=== PATIENT | female | born 1980 | race Caucasian/White ===

== ENCOUNTER 2016-07-30 18:14 | Emergency (ER) | payer SELFPAY ==
[~2016-07-30] VITALS: Ht 160 cm; Wt 93.4 kg
[~2016-07-30 18:14] MED LIST: ACC200C PO; ACHD5005 PO; ACYC800T PO; AGM875T PO; ALBU8.5H2 IH; AMOX500C2 PO; AMOXICILLIN; CEPH500C PO; CIPR500T78 PO; CIPR7.5D2 OT; CPH250CIP PO; CPR500T PO; EAR DROPS; FERR325C PO; GENT3.5O18 OU; GLYB1.253 PO; GLYB5TAB6 PO; GNT.3OP5 OP; HCTZ12.5T GT; HYDR-3729 PO; HYDR-707 PO; HYDR12.56 PO; HYDR25CA PO; IBP600T1 PO; IBUP-1773 PO; Ibuprofen PO; METR500T PO; Mupirocin NSEACH; NAPR-243 PO; NEOM10DR6 LEFT EAR; NEOM3.5O29 OP; NITR100C PO; ONDAN4ODT PO; PRD20T PO; PRD50T PO; PRE NATAL VIT; PREDNISONE; PREN1TAB14 PO; PREN1TAB71 PO; PRM25T PO; PROG50VI3 IM; SULF1TAB38 PO; TRAM-21 PO; TRAM50TA2 PO; TRM50T PO
[2016-07-30 19:52] VITALS: BP 0/0
== END 2016-07-30 19:52 | disposition left against medical advice (07) ==
LOC: EDUNIT# 18:14 → ER 18:17
DX: S61.412A Laceration without foreign body of left hand, initial encounter (principal); Z53.21 Procedure and treatment not carried out due to patient leaving prior to being seen by health care provider
CPT/HCPCS: 99281

== ENCOUNTER 2016-10-02 12:08 | Emergency (ER) | payer SELFPAY ==
[~2016-10-02] VITALS: Ht 160 cm; Wt 90.7 kg
--- OUTSIDE RECORDS SUMMARY | 2016-10-02 12:19 | XMS REPORT | Continuity of Care Document ---
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
</br>(12/31/2013 16:54:00) <sup> </sup> 12/31/2013 [facility] Temperature Celsius 36.7 Kerry 12/31/2013 [facility] Heart Rate 74 bpm 12/31/2013 [facility] Respiratory Rate 18 BR/min [facility] Heart Rate 92 bpm 12/25/2013 [facility] Respiratory Rate 18 BR/min [facility] Encounters Location Location Details Encounter Type Encounter Number Reason For Visit Attending Provider ADM Date DC Date Status Source [facility] Non Billable [id number] 12/25/2013 12/25/2013 [facility] CLI [id number] Incision Check Rex Prasad 12/25/2013 12/25/2013 Active [facility] CLI [id number] Incision Check Berry Eli 12/31/2013 12/31/2013 [facility] Procedures Plan of Care Social History Assessment and Plan Family History Value Date Source Advance Directives Order Name Results Value Date Source
--- OUTSIDE RECORDS SUMMARY | 2016-10-02 12:23 | XMS REPORT | Continuity of Care Document ---
Author Author [facility] Address Unknown Phone Unavailable Allergies Active Description Code Type Severity Reaction Onset Reported/Identified Relationship to Patient Clinical Status Yes Cromolyn Drug Allergy N/A N/A 02/17/2009 Yes BEES BEES Unknown N/A 09/30/2013 Yes Dihydroxyacetone [id number] Drug Allergy Unknown N/A 09/30/2013 Yes SEAFOOD SEAFOOD Unknown N/A 09/30/2013 Yes Shellfish [id number] Drug Allergy Unknown N/A 09/30/2013 Medications Problems Date Dx Coded Attending Type Code Diagnosis Diagnosed By 02/05/2009 JEVON WHEELER APRN 372.14 OTHER CHRONIC ALLERGIC CONJUNCTIVITIS 02/05/2009 JEVON WHEELER APRN 372.14 OTHER CHRONIC ALLERGIC CONJUNCTIVITIS 02/05/2009 JEVON WHEELER APRN A 372.14 OTHER CHRONIC ALLERGIC CONJUNCTIVITIS 02/05/2009 AVANI CAMACHO DO 372.14 OTHER CHRONIC ALLERGIC CONJUNCTIVITIS 02/05/2009 AVANI CAMACHO DO 372.14 OTHER CHRONIC ALLERGIC CONJUNCTIVITIS 02/05/2009 WADE EDUARDO PHD 372.14 OTHER CHRONIC ALLERGIC CONJUNCTIVITIS 02/05/2009 WADE EDUARDO PHD 372.14 OTHER CHRONIC ALLERGIC CONJUNCTIVITIS 02/05/2009 JEVON WHEELER APRN 372.14 OTHER CHRONIC ALLERGIC CONJUNCTIVITIS 02/05/2009 SILAS AYALA MD 372.14 OTHER CHRONIC ALLERGIC CONJUNCTIVITIS 02/05/2009 SILAS AYALA MD 372.14 OTHER CHRONIC ALLERGIC CONJUNCTIVITIS 02/05/2009 DEJA ANDREA APRN 372.14 OTHER CHRONIC ALLERGIC CONJUNCTIVITIS 02/05/2009 AVANI CAMACHO DO 372.14 OTHER CHRONIC ALLERGIC CONJUNCTIVITIS 02/05/2009 AVANI CAMACHO DO 372.14 OTHER CHRONIC ALLERGIC CONJUNCTIVITIS 02/05/2009 JEVON WHEELER APRN A 372.14 OTHER CHRONIC ALLERGIC CONJUNCTIVITIS 02/05/2009 SUMMER [facility] RECORDS TECH, JEVON A 372.14 OTHER CHRONIC ALLERGIC CONJUNCTIVITIS 02/05/2009 SUMMER MEDICAL RECORDS TECH, JEVON A 372.14 OTHER CHRONIC ALLERGIC CONJUNCTIVITIS 02/05/2009 SUMMER MEDICAL RECORDS TECH, JEVON A 372.14 OTHER CHRONIC ALLERGIC CONJUNCTIVITIS 02/05/2009 CAMACHO DO, AVANI K 372.14 OTHER CHRONIC ALLERGIC CONJUNCTIVITIS 02/05/2009 JAYCE REVELES, WADE Briceno 372.14 OTHER CHRONIC ALLERGIC CONJUNCTIVITIS 02/05/2009 CAMACHO DO, AVANI K 372.14 OTHER CHRONIC ALLERGIC CONJUNCTIVITIS 02/05/2009 ABILIO LUNAS, KASHIF Lawrence 372.14 OTHER CHRONIC ALLERGIC CONJUNCTIVITIS 02/05/2009 LUCY BLANKENSHIP, SILAS N 372.14 OTHER CHRONIC ALLERGIC CONJUNCTIVITIS 02/05/2009 SUMMER [facility]ICAL RECORDS TECH, JEVON A 372.14 OTHER CHRONIC ALLERGIC CONJUNCTIVITIS 02/05/2009 SUMMER MEDICAL RECORDS TECH, JEVON A 372.14 OTHER CHRONIC ALLERGIC CONJUNCTIVITIS 02/05/2009 XAVI GÓMEZ MD 372.14 OTHER CHRONIC ALLERGIC CONJUNCTIVITIS 02/05/2009 CAMACHO DO, AVANI K 372.14 OTHER CHRONIC ALLERGIC CONJUNCTIVITIS 02/05/2009 CAMACHO DO, AVANI K 372.14 OTHER CHRONIC ALLERGIC CONJUNCTIVITIS 02/14/2009 SUMMER [facility] RECORDS TECH, JEVON A 461.9 ACUTE SINUSITIS, UNSPECIFIED 02/14/2009 SUMMER MEDICAL RECORDS TECH, JEVON A 461.9 ACUTE SINUSITIS, UNSPECIFIED 02/14/2009 SUMMER MEDICAL RECORDS TECH, JEVON A 461.9 ACUTE SINUSITIS, UNSPECIFIED 02/14/2009 JANICE DO AVANI K 461.9 ACUTE SINUSITIS, UNSPECIFIED 02/14/2009 CAMACHO DO AVANI K 461.9 ACUTE SINUSITIS, UNSPECIFIED 02/14/2009 JAYCE REVELES, WADE A 461.9 ACUTE SINUSITIS, UNSPECIFIED 02/14/2009 JAYCE REVELES, WADE Briceno 461.9 ACUTE SINUSITIS, UNSPECIFIED 02/14/2009 SUMMER MEDICAL RECORDS TECH, JEVON A 461.9 ACUTE SINUSITIS, UNSPECIFIED 02/14/2009 LUCY BLANKENSHIP, SILAS Lala 461.9 ACUTE SINUSITIS, UNSPECIFIED 02/14/2009 SILAS AYALA MD 461.9 ACUTE SINUSITIS, UNSPECIFIED 02/14/2009 ZULLY MEDICAL RECORDS TECH, DEJA S 461.9 ACUTE SINUSITIS, UNSPECIFIED 02/14/2009 CAMACHO DO, AVANI K 461.9 ACUTE SINUSITIS, UNSPECIFIED 02/14/2009 CAMACHO DO, AVANI K 461.9 ACUTE SINUSITIS, UNSPECIFIED 02/14/2009 SUMMER MEDICAL RECORDS TECH, JEVON A 461.9 ACUTE SINUSITIS, UNSPECIFIED 02/14/2009 SUMMER MEDICAL RECORDS TECH, JEVON A 461.9 ACUTE SINUSITIS, UNSPECIFIED 02/14/2009 SUMMER MEDICAL RECORDS TECH, JEVON A 461.9 ACUTE SINUSITIS, UNSPECIFIED 02/14/2009 SUMMER MEDICAL RECORDS TECH, JEVON A 461.9 ACUTE SINUSITIS, UNSPECIFIED 02/14/2009 CAMACHO DO, AVANI K 461.9 ACUTE SINUSITIS, UNSPECIFIED 02/14/2009 JAYCE REVELES, WADE Briceno 461.9 ACUTE SINUSITIS, UNSPECIFIED 02/14/2009 CAMACHO DO, AVANI K 461.9 ACUTE SINUSITIS, UNSPECIFIED 02/14/2009 ABILIO DDS, KASHIF J 461.9 ACUTE SINUSITIS, UNSPECIFIED 02/14/2009 LUCY BLANKENSHIP, SILAS Lala 461.9 ACUTE SINUSITIS, UNSPECIFIED 02/14/2009 SUMMER MEDICAL RECORDS TECH, JEVON A 461.9 ACUTE SINUSITIS, UNSPECIFIED 02/14/2009 SUMMER MEDICAL RECORDS TECH, JEVON A 461.9 ACUTE SINUSITIS, UNSPECIFIED 02/14/2009 RICO BLANKENSHIP, XAVI Lawrence 461.9 ACUTE SINUSITIS, UNSPECIFIED 02/14/2009 CAMACHO DO, AVANI K 461.9 ACUTE SINUSITIS, UNSPECIFIED 02/14/2009 CAMACHO DO, AVANI K 461.9 ACUTE SINUSITIS, UNSPECIFIED 11/21/2009 SUMMER MEDICAL RECORDS TECH, JEVON A 354.2 LESION OF ULNAR NERVE 11/21/2009 SUMMER MEDICAL RECORDS TECH, JEVON A 354.2 LESION OF ULNAR NERVE 11/21/2009 SUMMER MEDICAL RECORDS TECH, JEVON A 354.2 LESION OF ULNAR NERVE 11/21/2009 CAMACHO DO AVANI K 354.2 LESION OF ULNAR NERVE 11/21/2009 CAMACHO DO, AVANI K 354.2 LESION OF ULNAR NERVE 11/21/2009 JAYCE REVELES, WADE Briceno 354.2 LESION OF ULNAR NERVE 11/21/2009 JAYCE REVELES, WADE Briceno 354.2 LESION OF ULNAR NERVE 11/21/2009 JEVON WHEELER APRN A 354.2 LESION OF ULNAR NERVE 11/21/2009 SILAS AYALA MD 354.2 LESION OF ULNAR NERVE 11/21/2009 SILAS AYALA MD 354.2 LESION OF ULNAR NERVE 11/21/2009 DEJA ANDREA APRN 354.2 LESION OF ULNAR NERVE 11/21/2009 AVANI CAMACHO DO 354.2 LESION OF ULNAR NERVE 11/21/2009 AVANI CAMACHO DO 354.2 LESION OF ULNAR NERVE 11/21/2009 SUMMER NAVA JEVON A 354.2 LESION OF ULNAR NERVE 11/21/2009 TIM WHEELER APRNIDI A 354.2 LESION OF ULNAR NERVE 11/21/2009 TIM WHEELER APRNIDI A 354.2 LESION OF ULNAR NERVE 11/21/2009 TIM WHEELER APRNIDI A 354.2 LESION OF ULNAR NERVE 11/21/2009 AVANI CAMACHO DO 354.2 LESION OF ULNAR NERVE 11/21/2009 JAYCE REVELES, WADE Briceno 354.2 LESION OF ULNAR NERVE 11/21/2009 AVANI CAMACHO DO K 354.2 LESION OF ULNAR NERVE 11/21/2009 KASHIF KNOX DDS 354.2 LESION OF ULNAR NERVE 11/21/2009 SILAS AYALA MD 354.2 LESION OF ULNAR NERVE 11/21/2009 TIM WHEELER APRNIDI A 354.2 LESION OF ULNAR NERVE 11/21/2009 TIM WHEELER APRNIDI A 354.2 LESION OF ULNAR NERVE 11/21/2009 XAVI GÓMEZ MD 354.2 LESION OF ULNAR NERVE 11/21/2009 AVANI CAMACHO DO 354.2 LESION OF ULNAR NERVE 11/21/2009 AVANI CAMACHO DO 354.2 LESION OF ULNAR NERVE 06/04/2010 Ot 305.00 06/04/2010 Ot 802.0 06/04/2010 Ot 873.43 06/04/2010 Ot 959.09 06/04/2010 Ot E000.8 06/04/2010 Ot E029.9 06/04/2010 Ot E849.6 06/04/2010 Ot E917.9 06/10/2010 Ot V58.32 10/21/2010 Ot 847.0 10/21/2010 Ot 920 10/21/2010 Ot 959.01 10/21/2010 Ot E000.8 10/21/2010 Ot E849.0 10/21/2010 Ot E968.8 11/24/2010 Ot 599.0 11/24/2010 Ot 789.00 06/11/2011 SUMMER [facility] RECORDS TECH, JEVON A 008.8 GASTROENTERITIS, VIRAL 06/11/2011 SUMMER MEDICAL RECORDS TECH, JEVON A 008.8 GASTROENTERITIS, VIRAL 06/11/2011 SUMMER MEDICAL RECORDS TECH, JEVON A 008.8 GASTROENTERITIS, VIRAL 06/11/2011 CAMACHO DO, AVANI K 008.8 GASTROENTERITIS, VIRAL 06/11/2011 CAMACHO DO, AVANI K 008.8 GASTROENTERITIS, VIRAL 06/11/2011 JAYCE PHD, WADE A 008.8 GASTROENTERITIS, VIRAL 06/11/2011 JAYCE REVELES, WADE A 008.8 GASTROENTERITIS, VIRAL 06/11/2011 SUMMER [facility]ICAL RECORDS TECH, JEVON A 008.8 GASTROENTERITIS, VIRAL 06/11/2011 LUCY BLANKENSHIP, SILAS Lala 008.8 GASTROENTERITIS, VIRAL 06/11/2011 LUCY BLANKENSHIP, SILAS Lala 008.8 GASTROENTERITIS, VIRAL 06/11/2011 DEJA ANDREA APRN 008.8 GASTROENTERITIS, VIRAL 06/11/2011 CAMACHO DOELAINEA K 008.8 GASTROENTERITIS, VIRAL 06/11/2011 CAMACHO DO AVANI K 008.8 GASTROENTERITIS, VIRAL 06/11/2011 SUMMER MEDICAL RECORDS TECH, JEVON A 008.8 GASTROENTERITIS, VIRAL 06/11/2011 SUMMER MEDICAL RECORDS TECH, JEVON A 008.8 GASTROENTERITIS, VIRAL 06/11/2011 SUMMER MEDICAL RECORDS TECH, JEVON A 008.8 GASTROENTERITIS, VIRAL 06/11/2011 SUMMER MEDICAL RECORDS TECH, JEVON A 008.8 GASTROENTERITIS, VIRAL 06/11/2011 CAMACHO DO AVANI K 008.8 GASTROENTERITIS, VIRAL 06/11/2011 JAYCE REVELES, WADE A 008.8 GASTROENTERITIS, VIRAL 06/11/2011 CAMACHO DO AVANI K 008.8 GASTROENTERITIS, VIRAL 06/11/2011 ABILIO LUNAS, KASHIF Lawrence 008.8 GASTROENTERITIS, VIRAL 06/11/2011 LUCY BLANKENSHIP, SILAS Lala 008.8 GASTROENTERITIS, VIRAL 06/11/2011 JEVON WHEELER APRN A 008.8 GASTROENTERITIS, VIRAL 06/11/2011 JEVON WHEELER APRN 008.8 GASTROENTERITIS, VIRAL 06/11/2011 XAVI GÓMEZ MD 008.8 GASTROENTERITIS, VIRAL 06/11/2011 CAMACHO AVANI HEALY 008.8 GASTROENTERITIS, VIRAL 06/11/2011 JANICE HEALYAVANI 008.8 GASTROENTERITIS, VIRAL 07/21/2011 Ot 372.30 CONJUNCTIVITIS NOS 07/21/2011 Ot 379.93 REDNESS/DISCHARGE OF EYE 09/02/2011 Ot 388.70 OTALGIA NOS 09/28/2011 Ot 388.70 OTALGIA NOS 12/24/2011 Ot 787.03 VOMITING ALONE 04/27/2012 Ot 305.1 TOBACCO USE DISORDER 04/27/2012 Ot 466.0 ACUTE BRONCHITIS 04/27/2012 Ot 786.2 COUGH 09/21/2012 QI BLANKENSHIP, TANISHA Coates Ot 787.02 NAUSEA ALONE 09/21/2012 QI BLANKENSHIP, TANISHA Coates Ot 789.09 ABDOMINAL PAIN, OTHER SPECIFIED SITE 12/09/2012 JOSÉ MANUEL COCHRAN APRN Ot 380.10 INFEC OTITIS EXTERNA NOS 12/09/2012 JOSÉ MANUEL COCHRAN APRN Ot 388.70 OTALGIA NOS 12/23/2012 JOSÉ MANUEL COCHRAN APRN Ot 599.0 URIN TRACT INFECTION NOS 12/23/2012 JOSÉ MANUEL COCHRAN APRN Ot 787.01 NAUSEA WITH VOMITING 01/13/2013 JEVON WHEELER APRN A V72.42 TEST POSITIVE RESULT 01/13/2013 JEVON WHEELER APRN V72.42 TEST POSITIVE RESULT 01/13/2013 JEVON WHEELER APRN A V72.42 TEST POSITIVE RESULT 01/13/2013 AVANI CAMACHO DO V72.42 TEST POSITIVE RESULT 01/13/2013 AVANI CAMACHO DO V72.42 TEST POSITIVE RESULT 01/13/2013 WADE EDUARDO PHD V72.42 TEST POSITIVE RESULT 01/13/2013 WADE EDUARDO PHD V72.42 TEST POSITIVE RESULT 01/13/2013 JEVON WHEELER APRN A V72.42 TEST POSITIVE RESULT 01/13/2013 SILAS AYALA MD V72.42 TEST POSITIVE RESULT 01/13/2013 SILAS AYALA MD V72.42 TEST POSITIVE RESULT 01/13/2013 DEJA ANDREA APRN V72.42 TEST POSITIVE RESULT 01/13/2013 CAMACHO DO, AVANI K V72.42 TEST POSITIVE RESULT 01/13/2013 CAMACHO DO, AVANI K V72.42 TEST POSITIVE RESULT 01/13/2013 SUMMER [facility] RECORDS TECH, JEVON A V72.42 TEST POSITIVE RESULT 01/13/2013 SUMMER MEDICAL RECORDS TECH, JEVON A V72.42 TEST POSITIVE RESULT 01/13/2013 SUMMER MEDICAL RECORDS TECH, JEVON A V72.42 TEST POSITIVE RESULT 01/13/2013 SUMMER MEDICAL RECORDS TECH, JEVON A V72.42 TEST POSITIVE RESULT 01/13/2013 CAMACHO DO, AVANI K V72.42 TEST POSITIVE RESULT 01/13/2013 WADE EDUARDO PHD V72.42 TEST POSITIVE RESULT 01/13/2013 CAMACHO DO, AVANI K V72.42 TEST POSITIVE RESULT 01/13/2013 ABILIO LUNAS, KASHIF Lawrence V72.42 TEST POSITIVE RESULT 01/13/2013 SILAS AYALA MD V72.42 TEST POSITIVE RESULT 01/13/2013 SUMMER MEDICAL RECORDS TECH, JEVON A V72.42 TEST POSITIVE RESULT 01/13/2013 SUMMER MEDICAL RECORDS TECH, JEVON A V72.42 TEST POSITIVE RESULT 01/13/2013 XAVI GÓMEZ MD V72.42 TEST POSITIVE RESULT 01/13/2013 CAMACHO DO, AVANI K V72.42 TEST POSITIVE RESULT 01/13/2013 CAMACHO DO, AVANI K V72.42 TEST POSITIVE RESULT 01/26/2013 CAMACHO DO, AVANI K 632 , MISSED 01/26/2013 CAMACHO DO, AVANI K 632 , MISSED 01/26/2013 WADE EDUARDO PHD 632 , MISSED 01/26/2013 WADE EDUARDO PHD 632 , MISSED 01/26/2013 SUMMER NAVA, JEVON A 632 , MISSED 01/26/2013 LUCY BLANKENSHIP, SILAS Lala 632 , MISSED 01/26/2013 SILAS AYALA MD 632 , MISSED 01/26/2013 ZULLY NAVAHENRYDEJA S 632 , MISSED 01/26/2013 CAMACHO DO, AVANI K 632 , MISSED 01/26/2013 CAMACHO DO, AVANI K 632 , MISSED 01/26/2013 SUMMER MEDICAL RECORDS TECH, JEVON A 632 , MISSED 01/26/2013 SUMMER MEDICAL RECORDS TECH, JEVON A 632 , MISSED 01/26/2013 SUMMER MEDICAL RECORDS TECH, JEVON A 632 , MISSED 01/26/2013 SUMMER MEDICAL RECORDS TECH, JEVON A 632 , MISSED 01/26/2013 CAMACHO DO, AVANI K 632 , MISSED 01/26/2013 JAYCE REVELES, WADE Briceno 632 , MISSED 01/26/2013 CAMACHO DO, AVANI K 632 , MISSED 01/26/2013 ABILIO LUNAS, KASHIF J 632 , MISSED 01/26/2013 SILAS AYALA MD 632 , MISSED 01/26/2013 SUMMER MEDICAL RECORDS TECH, JEVON A 632 , MISSED 01/26/2013 SUMMER MEDICAL RECORDS TECH, JEVON A 632 , MISSED 01/26/2013 RICO BLANKENSHIP, XAVI Lawrence 632 , MISSED 01/26/2013 CAMACHO DO, AVANI K 632 , MISSED 01/26/2013 CAMACHO DO, AVANI K 632 , MISSED 01/31/2013 SUKUMAR SHEPARD MD Ot 599.0 URIN TRACT INFECTION NOS 01/31/2013 SUKUMAR SHEPARD MD Ot 640.03 THREATEN ABORT-ANTEPART 01/31/2013 SUKUMAR SHEPARD MD Ot 646.63 INFECTION-ANTEPARTUM 01/31/2013 SUKUMAR SHEPARD MD Ot 649.53 SPOTTING COMP , ANTEPARTUM COND 02/02/2013 WADE EDUARDO PHD 634.91 INCOMPLETE (SAB) 02/02/2013 WADE EDUARDO PHD 634.91 INCOMPLETE (SAB) 02/02/2013 SUMMER NAVA, JEVON A 634.91 INCOMPLETE (SAB) 02/02/2013 SILAS AYALA MD 634.91 INCOMPLETE (SAB) 02/02/2013 LUCY MD, SILAS N 634.91 INCOMPLETE (SAB) 02/02/2013 ZULLYVREONICA LONGORIANDEJA Magdi 634.91 INCOMPLETE (SAB) 02/02/2013 AVANI CAMACHO DO K 634.91 INCOMPLETE (SAB) 02/02/2013 ELAINE CAMACHO DOA K 634.91 INCOMPLETE (SAB) 02/02/2013 SUMMER APRN, JEVON A 634.91 INCOMPLETE (SAB) 02/02/2013 SUMMERCRISTI NAVA, JEVON A 634.91 INCOMPLETE (SAB) 02/02/2013 SUMMER APRN, JEVON A 634.91 INCOMPLETE (SAB) 02/02/2013 SUMMERCRISTI NAVA, JEVON A 634.91 INCOMPLETE (SAB) 02/02/2013 AVANI CAMACHO DO K 634.91 INCOMPLETE (SAB) 02/02/2013 WADE EDUARDO PHD 634.91 INCOMPLETE (SAB) 02/02/2013 AVANI CAMACHO DO K 634.91 INCOMPLETE (SAB) 02/02/2013 ABILIO LUNAS, KASHIF J 634.91 INCOMPLETE (SAB) 02/02/2013 SILAS AYALA MD 634.91 INCOMPLETE (SAB) 02/02/2013 TIM WHEELER APRNIDI A 634.91 INCOMPLETE (SAB) 02/02/2013 TIM WHEELER APRNIDI A 634.91 INCOMPLETE (SAB) 02/02/2013 XAVI GÓMEZ MD 634.91 INCOMPLETE (SAB) 02/02/2013 AVANI CAMACHO DO K 634.91 INCOMPLETE (SAB) 02/02/2013 AVANI CAMACHO DO K 634.91 INCOMPLETE (SAB) 02/03/2013 WADE EDUARDO PHD A 296.32 MO DEPRESSIVE RECURRENT MODERATE 02/03/2013 WADE EDUARDO PHD A 309.81 AN PTSD 02/03/2013 WADE EDUARDO PHD A 296.32 MO DEPRESSIVE RECURRENT MODERATE 02/03/2013 JAYCE REVELES, WADE A 309.81 AN PTSD 02/03/2013 JEVON WHEELER APRN A 296.32 MO DEPRESSIVE RECURRENT MODERATE 02/03/2013 TIM WHEELER APRNIDI A 309.81 AN PTSD 02/03/2013 LUCY MD, SILAS N 296.32 MO DEPRESSIVE RECURRENT MODERATE 02/03/2013 SILAS AYALA MD N 309.81 AN PTSD 02/03/2013 SILAS AYALA MD N 296.32 MO DEPRESSIVE RECURRENT MODERATE 02/03/2013 SILAS AYALA MD N 309.81 AN PTSD 02/03/2013 ZULLY MEDICAL RECORDS TECH, DEJA S 296.32 MO DEPRESSIVE RECURRENT MODERATE 02/03/2013 ZULLY MEDICAL RECORDS TECH, DEJA S 309.81 AN PTSD 02/03/2013 CAMACHO DO AVANI K 296.32 MO DEPRESSIVE RECURRENT MODERATE 02/03/2013 CAMACHO DO AVANI K 309.81 AN PTSD 02/03/2013 CAMACHO DO AVANI K 296.32 MO DEPRESSIVE RECURRENT MODERATE 02/03/2013 CAMACHO DO AVANI K 309.81 AN PTSD 02/03/2013 SUMMER MEDICAL RECORDS TECH, JEVON A 296.32 MO DEPRESSIVE RECURRENT MODERATE 02/03/2013 SUMMER MEDICAL RECORDS TECH, JEVON A 309.81 AN PTSD 02/03/2013 SUMMER MEDICAL RECORDS TECH, JEVON A 296.32 MO DEPRESSIVE RECURRENT MODERATE 02/03/2013 SUMMER MEDICAL RECORDS TECH, JEVON A 309.81 AN PTSD 02/03/2013 SUMMER MEDICAL RECORDS TECH, JEVON A 296.32 MO DEPRESSIVE RECURRENT MODERATE 02/03/2013 SUMMER MEDICAL RECORDS TECH, JEVON A 309.81 AN PTSD 02/03/2013 SUMMER MEDICAL RECORDS TECH, JEVON A 296.32 MO DEPRESSIVE RECURRENT MODERATE 02/03/2013 SUMMER MEDICAL RECORDS TECH, JEVON A 309.81 AN PTSD 02/03/2013 JANICE HEALY AVANI K 296.32 MO DEPRESSIVE RECURRENT MODERATE 02/03/2013 JANICE DO AVANI K 309.81 AN PTSD 02/03/2013 JAYCE REVELES, WADE A 296.32 MO DEPRESSIVE RECURRENT MODERATE 02/03/2013 JAYCE REVELES, WADE A 309.81 AN PTSD 02/03/2013 JANICE HEALY AVANI K 296.32 MO DEPRESSIVE RECURRENT MODERATE 02/03/2013 CAMACHO DO AVANI K 309.81 AN PTSD 02/03/2013 WHITE DDS, KASHIF J 296.32 MO DEPRESSIVE RECURRENT MODERATE 02/03/2013 WHITE DDS, KASHIF J 309.81 AN PTSD 02/03/2013 SILAS AYALA MD N 296.32 MO DEPRESSIVE RECURRENT MODERATE 02/03/2013 SILAS AYALA MD N 309.81 AN PTSD 02/03/2013 SUMMER MEDICAL RECORDS TECH, JEVON A 296.32 MO DEPRESSIVE RECURRENT MODERATE 02/03/2013 SUMMER MEDICAL RECORDS TECH, JEVON A 309.81 AN PTSD 02/03/2013 SUMMER MEDICAL RECORDS TECH, JEVON A 296.32 MO DEPRESSIVE RECURRENT MODERATE 02/03/2013 SUMMER MEDICAL RECORDS TECH, JEVON A 309.81 AN PTSD 02/03/2013 XAVI GÓMEZ MD 296.32 MO DEPRESSIVE RECURRENT MODERATE 02/03/2013 XAVI GÓMEZ MD 309.81 AN PTSD 02/03/2013 CAMACHO DO, AVANI K 296.32 MO DEPRESSIVE RECURRENT MODERATE 02/03/2013 CAMACHO DO, AVANI K 309.81 AN PTSD 02/03/2013 CAMACHO DO, AVANI K 296.32 MO DEPRESSIVE RECURRENT MODERATE 02/03/2013 CAMACHO DO, AVANI K 309.81 AN PTSD 02/25/2013 SILAS AYALA MD N 698.9 UNSPECIFIED PRURITIC DISORDER 02/25/2013 SILAS AYALA MD 698.9 UNSPECIFIED PRURITIC DISORDER 02/25/2013 ZULLY NAVA DEJA S 698.9 UNSPECIFIED PRURITIC DISORDER 02/25/2013 CAMACHO DO, AVANI K 698.9 UNSPECIFIED PRURITIC DISORDER 02/25/2013 CAMACHO DO, AVANI K 698.9 UNSPECIFIED PRURITIC DISORDER 02/25/2013 SUMMER MEDICAL RECORDS TECH, JEVON A 698.9 UNSPECIFIED PRURITIC DISORDER 02/25/2013 SUMMER MEDICAL RECORDS TECH, JEVON A 698.9 UNSPECIFIED PRURITIC DISORDER 02/25/2013 SUMMER MEDICAL RECORDS TECH, JEVON A 698.9 UNSPECIFIED PRURITIC DISORDER 02/25/2013 SUMMER MEDICAL RECORDS TECH, JEVON A 698.9 UNSPECIFIED PRURITIC DISORDER 02/25/2013 CAMACHO DO, AVANI K 698.9 UNSPECIFIED PRURITIC DISORDER 02/25/2013 JAYCE REVELES, WADE A 698.9 UNSPECIFIED PRURITIC DISORDER 02/25/2013 CAMACHO DO, AVANI K 698.9 UNSPECIFIED PRURITIC DISORDER 02/25/2013 ABILIO LUNAS, KASHIF J 698.9 UNSPECIFIED PRURITIC DISORDER 02/25/2013 SILAS AYALA MD N 698.9 UNSPECIFIED PRURITIC DISORDER 02/25/2013 SUMMER MEDICAL RECORDS TECH, JEVON A 698.9 UNSPECIFIED PRURITIC DISORDER 02/25/2013 SUMMER MEDICAL RECORDS TECH, JEVON A 698.9 UNSPECIFIED PRURITIC DISORDER 02/25/2013 RICO BLANKENSHIP, XAVI Lawrence 698.9 UNSPECIFIED PRURITIC DISORDER 02/25/2013 CAMACHO DO, AVANI K 698.9 UNSPECIFIED PRURITIC DISORDER 02/25/2013 CAMACHO DO, AVANI K 698.9 UNSPECIFIED PRURITIC DISORDER 05/06/2013 ZULLY NAVA, DEJA S 354.0 CARPAL TUNNEL SYNDROME 05/06/2013 CAMACHO DO, AVANI K 354.0 CARPAL TUNNEL SYNDROME 05/06/2013 CAMACHO DO, AVANI K 354.0 CARPAL TUNNEL SYNDROME 05/06/2013 SUMMER NAVA, JEVON A 354.0 CARPAL TUNNEL SYNDROME 05/06/2013 SUMMER NAVA, JEVON A 354.0 CARPAL TUNNEL SYNDROME 05/06/2013 SUMMER NAVA, JEVON A 354.0 CARPAL TUNNEL SYNDROME 05/06/2013 SUMMER NAVA, JEVON A 354.0 CARPAL TUNNEL SYNDROME 05/06/2013 CAMACHO DO, AVANI K 354.0 CARPAL TUNNEL SYNDROME 05/06/2013 JAYCE PHD, WADE Briceno 354.0 CARPAL TUNNEL SYNDROME 05/06/2013 CAMACHO DO, AVANI K 354.0 CARPAL TUNNEL SYNDROME 05/06/2013 ABILIO DDS, KASHIF Lawrence 354.0 CARPAL TUNNEL SYNDROME 05/06/2013 LUCY BLANKENSHIP, SILAS Lala 354.0 CARPAL TUNNEL SYNDROME 05/06/2013 SUMMER NAVA, JEVON A 354.0 CARPAL TUNNEL SYNDROME 05/06/2013 SUMMERCRISTI NAVA, JEVON A 354.0 CARPAL TUNNEL SYNDROME 05/06/2013 XAVI GÓMEZ MD 354.0 CARPAL TUNNEL SYNDROME 05/06/2013 CAMACHO DO AVANI K 354.0 CARPAL TUNNEL SYNDROME 05/06/2013 CAMACHO DO, AVANI K 354.0 CARPAL TUNNEL SYNDROME 05/07/2013 QI BLANKENSHIP, TANISHA Coates Ot 682.4 CELLULITIS OF HAND 05/07/2013 QI BLANKENSHIP, TANISHA Coates Ot 729.5 PAIN IN LIMB 06/01/2013 CAMACHO DO, AVANI K 493.10 INTRINSIC ASTHMA UNSPECIFIED 06/01/2013 CAMACHO DO, AVANI K 782.3 EDEMA 06/01/2013 CAMACHO DO, AVANI K V22.2 STATE INCIDENTAL 06/01/2013 CAMACHO DO, AVAIN K 493.10 INTRINSIC ASTHMA UNSPECIFIED 06/01/2013 CAMACHO DO, AVANI K 782.3 EDEMA 06/01/2013 CAMACHO DO, AVANI K V22.2 STATE INCIDENTAL 06/01/2013 [facility] [employer] REC[employer]DS TECH, JEVON A 493.10 INTRINSIC ASTHMA UNSPECIFIED 06/01/2013 SUMMER MEDICAL RECORDS TECH, JEVON A 782.3 EDEMA 06/01/2013 SUMMER [employer]ICAL RECORDS TECH, JEVON A V22.2 STATE INCIDENTAL 06/01/2013 SUMMER [employer] RECORDS TECH, JEVON A 493.10 INTRINSIC ASTHMA UNSPECIFIED 06/01/2013 SUMMER [employer]ICAL RECORDS TECH, JEVON A 782.3 EDEMA 06/01/2013 SUMMER MEDICAL RECORDS TECH, JEVON A V22.2 STATE INCIDENTAL 06/01/2013 SUMMER [employer]ICAL RECORDS TECH, JEVON A 493.10 INTRINSIC ASTHMA UNSPECIFIED 06/01/2013 SUMMER [employer]ICAL RECORDS TECH, JEVON A 782.3 EDEMA 06/01/2013 SUMMER [employer] RECORDS TECH, JEVON A V22.2 STATE INCIDENTAL 06/01/2013 SUMMER [employer] RECORDS TECH, JEVON A 493.10 INTRINSIC ASTHMA UNSPECIFIED 06/01/2013 SUMMER [employer] RECORDS TECH, JEVON A 782.3 EDEMA 06/01/2013 SUMMER [employer] RECORDS TECH, JEVON A V22.2 STATE INCIDENTAL 06/01/2013 CAMACHO DO, AVANI K 493.10 INTRINSIC ASTHMA UNSPECIFIED 06/01/2013 CAMACHO DO, AVANI K 782.3 EDEMA 06/01/2013 CAMACHO DO, AVANI K V22.2 STATE INCIDENTAL 06/01/2013 JAYCE REVELES, WADE Briceno 493.10 INTRINSIC ASTHMA UNSPECIFIED 06/01/2013 JAYCE PHD, WADE A 782.3 EDEMA 06/01/2013 JAYCE PHD, WADE A V22.2 STATE INCIDENTAL 06/01/2013 CAMACHO DO, AVANI K 493.10 INTRINSIC ASTHMA UNSPECIFIED 06/01/2013 CAMACHO DO, AVANI K 782.3 EDEMA 06/01/2013 CAMACHO DO, AVANI K V22.2 STATE INCIDENTAL 06/01/2013 WHITE DDS, KASHIF J 493.10 INTRINSIC ASTHMA UNSPECIFIED 06/01/2013 WHITE DDS, KASHIF J 782.3 EDEMA 06/01/2013 WHITE DDS, KASHIF J V22.2 STATE INCIDENTAL 06/01/2013 SILAS AYALA MD 493.10 INTRINSIC ASTHMA UNSPECIFIED 06/01/2013 SILAS AYALA MD N 782.3 EDEMA 06/01/2013 SILAS AYALA MD N V22.2 STATE INCIDENTAL 06/01/2013 JEVON WHEELER APRN A 493.10 INTRINSIC ASTHMA UNSPECIFIED 06/01/2013 SUMMER NAVA JEVON A 782.3 EDEMA 06/01/2013 TIM WHEELER APRNIDI A V22.2 STATE INCIDENTAL 06/01/2013 JEVON WHEELER APRN A 493.10 INTRINSIC ASTHMA UNSPECIFIED 06/01/2013 TIM WHEELER APRNIDI A 782.3 EDEMA 06/01/2013 TIM WHEELER APRNIDI A V22.2 STATE INCIDENTAL 06/01/2013 XAVI GÓMEZ MD 493.10 INTRINSIC ASTHMA UNSPECIFIED 06/01/2013 XAVI GÓMEZ MD 782.3 EDEMA 06/01/2013 XAVI GÓMEZ MD V22.2 STATE INCIDENTAL 06/01/2013 CAMACHO DO, AVANI K 493.10 INTRINSIC ASTHMA UNSPECIFIED 06/01/2013 CAMACHO DO, AVANI K 782.3 EDEMA 06/01/2013 CAMACHO DO, AVANI K V22.2 STATE INCIDENTAL 06/01/2013 JANICE HEALY, AVANI K 493.10 INTRINSIC ASTHMA UNSPECIFIED 06/01/2013 CAMACHO DO, AVANI K 782.3 EDEMA 06/01/2013 CAMACHO DO, AVANI K V22.2 STATE INCIDENTAL 06/21/2013 SUKUMAR SHEPARD MD Ot 616.10 VAGINITIS NOS 06/21/2013 SUKUMAR SHEPARD MD Ot 643.93 VOMIT OF PG NOS-ANTEPART 06/21/2013 SUKUMAR SHEPARD MD Ot 646.63 INFECTION-ANTEPARTUM 06/21/2013 SUKUMAR SHEPARD MD Ot 789.00 ABDOMINAL PAIN, UNSPECIFIED SITE 06/29/2013 JEVON WHEELER APRN 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 OR THE PUERPERIUM UNSPECIFIED TO EPISODE OF CARE 06/29/2013 JEVON WHEELER APRN 649.00 COMPL OF - TOBACCO USE 06/29/2013 JEVON WHEELER APRN A 654.20 PREVIOUS 06/29/2013 JEVON WHEELER APRN A 787.02 NAUSEA ALONE 06/29/2013 JEVON WHEELER APRN V12.21 PERSONAL HISTORY OF GESTATIONAL DIABETES 06/29/2013 JEVON WHEELER APRN V23.9 , HIGH-RISK (UNSPEC) 06/29/2013 JEVON WHEELER APRN 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 OR THE PUERPERIUM UNSPECIFIED TO EPISODE OF CARE 06/29/2013 JEVON WHEELER APRN 649.00 COMPL OF - TOBACCO USE 06/29/2013 JEVON WHEELER APRN 654.20 PREVIOUS 06/29/2013 JEVON WHEELER APRN A 787.02 NAUSEA ALONE 06/29/2013 JEVON WHEELER APRN V12.21 PERSONAL HISTORY OF GESTATIONAL DIABETES 06/29/2013 JEVON WHEELER APRN V23.9 , HIGH-RISK (UNSPEC) 06/29/2013 JEVON WHEELER APRN 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 OR THE PUERPERIUM UNSPECIFIED TO EPISODE OF CARE 06/29/2013 JEVON WHEELER APRN 649.00 COMPL OF - TOBACCO USE 06/29/2013 JEVON WHEELER APRN 654.20 PREVIOUS 06/29/2013 JEVON WHEELER APRN A 787.02 NAUSEA ALONE 06/29/2013 JEVON WHEELER APRN A V12.21 PERSONAL HISTORY OF GESTATIONAL DIABETES 06/29/2013 JEVON WHEELER APRN V23.9 , HIGH-RISK (UNSPEC) 06/29/2013 JEVON WHEELER APRN A 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 OR THE PUERPERIUM UNSPECIFIED TO EPISODE OF CARE 06/29/2013 SUMMER NAVA JEVON A 649.00 COMPL OF - TOBACCO USE 06/29/2013 SUMMER NAVA JEVON A 654.20 PREVIOUS 06/29/2013 TIM WHEELER APRNIDI A 787.02 NAUSEA ALONE 06/29/2013 TIM WHEELER APRNIDI A V12.21 PERSONAL HISTORY OF GESTATIONAL DIABETES 06/29/2013 TIM WHEELER APRNIDI A V23.9 , HIGH-RISK (UNSPEC) 06/29/2013 AVANI CAMACHO DO 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 OR THE PUERPERIUM UNSPECIFIED TO EPISODE OF CARE 06/29/2013 AVANI CAMACHO DO 649.00 COMPL OF - TOBACCO USE 06/29/2013 AVANI CAMACHO DO 654.20 PREVIOUS 06/29/2013 AVANI CAMACHO DO 787.02 NAUSEA ALONE 06/29/2013 AVANI CAMACHO DO V12.21 PERSONAL HISTORY OF GESTATIONAL DIABETES 06/29/2013 AVANI CAMACHO DO V23.9 , HIGH-RISK (UNSPEC) 06/29/2013 WADE EDUARDO PHD 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 OR THE PUERPERIUM UNSPECIFIED TO EPISODE OF CARE 06/29/2013 WADE EDUARDO PHD 649.00 COMPL OF - TOBACCO USE 06/29/2013 WADE EDUARDO PHD 654.20 PREVIOUS 06/29/2013 WADE EDUARDO PHD 787.02 NAUSEA ALONE 06/29/2013 WADE EDUARDO PHD V12.21 PERSONAL HISTORY OF GESTATIONAL DIABETES 06/29/2013 WADE EDUARDO PHD V23.9 , HIGH-RISK (UNSPEC) 06/29/2013 AVANI CAMACHO DO 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 OR THE PUERPERIUM UNSPECIFIED TO EPISODE OF CARE 06/29/2013 AVANI CAMACHO DO 649.00 COMPL OF - TOBACCO USE 06/29/2013 AVANI CAMACHO DO 654.20 PREVIOUS 06/29/2013 AVANI CAMACHO DO 787.02 NAUSEA ALONE 06/29/2013 AVANI CAMACHO DO V12.21 PERSONAL HISTORY OF GESTATIONAL DIABETES 06/29/2013 AVANI CAMACHO DO K V23.9 , HIGH-RISK (UNSPEC) 06/29/2013 KASHIF KNOX DDS 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 OR THE PUERPERIUM UNSPECIFIED TO EPISODE OF CARE 06/29/2013 KASHIF KNOX DDS J 649.00 COMPL OF - TOBACCO USE 06/29/2013 KASHIF KNOX DDS J 654.20 PREVIOUS 06/29/2013 KASHIF KNOX DDS 787.02 NAUSEA ALONE 06/29/2013 KASHIF KNOX DDS V12.21 PERSONAL HISTORY OF GESTATIONAL DIABETES 06/29/2013 KASHIF KNOX DDS V23.9 , HIGH-RISK (UNSPEC) 06/29/2013 SILAS AYALA MD 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 OR THE PUERPERIUM UNSPECIFIED TO EPISODE OF CARE 06/29/2013 SILAS AYALA MD 649.00 COMPL OF - TOBACCO USE 06/29/2013 SILAS AYALA MD 654.20 PREVIOUS 06/29/2013 SILAS AYALA MD 787.02 NAUSEA ALONE 06/29/2013 SILAS AYALA MD N V12.21 PERSONAL HISTORY OF GESTATIONAL DIABETES 06/29/2013 SILAS AYALA MD V23.9 , HIGH-RISK (UNSPEC) 06/29/2013 JEVON WHEELER APRN 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 OR THE PUERPERIUM UNSPECIFIED TO EPISODE OF CARE 06/29/2013 JEVON WHEELER APRN 649.00 COMPL OF - TOBACCO USE 06/29/2013 JEVON WHEELER APRN 654.20 PREVIOUS 06/29/2013 JEVON WHEELER APRN 787.02 NAUSEA ALONE 06/29/2013 JEVON WHEELER APRN V12.21 PERSONAL HISTORY OF GESTATIONAL DIABETES 06/29/2013 JEVON WHEELER APRN V23.9 , HIGH-RISK (UNSPEC) 06/29/2013 SUMMER MEDICAL RECORDS TECH, JEVON A 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 OR THE PUERPERIUM UNSPECIFIED TO EPISODE OF CARE 06/29/2013 SUMMER MEDICAL RECORDS TECHJEVON Lala 649.00 COMPL OF - TOBACCO USE 06/29/2013 SUMMER MEDICAL RECORDS TECHJEVON Lala 654.20 PREVIOUS 06/29/2013 SUMMER MEDICAL RECORDS TECHJEVON Lala 787.02 NAUSEA ALONE 06/29/2013 SUMMER MEDICAL RECORDS TECHJEVON Lala V12.21 PERSONAL HISTORY OF GESTATIONAL DIABETES 06/29/2013 SUMMER MEDICAL RECORDS TECHJEVON Lala V23.9 , HIGH-RISK (UNSPEC) 06/29/2013 XAVI GÓMEZ MD 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 OR THE PUERPERIUM UNSPECIFIED TO EPISODE OF CARE 06/29/2013 XAVI GÓMEZ MD 649.00 COMPL OF - TOBACCO USE 06/29/2013 XAVI GÓMEZ MD 654.20 PREVIOUS 06/29/2013 XAVI GÓMEZ MD 787.02 NAUSEA ALONE 06/29/2013 XAVI GÓMEZ MD V12.21 PERSONAL HISTORY OF GESTATIONAL DIABETES 06/29/2013 XAVI GÓMEZ MD V23.9 , HIGH-RISK (UNSPEC) 06/29/2013 AVANI CAMACHO DO 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 OR THE PUERPERIUM UNSPECIFIED TO EPISODE OF CARE 06/29/2013 AVANI CAMACHO DO 649.00 COMPL OF - TOBACCO USE 06/29/2013 AVANI CAMACHO DO 654.20 PREVIOUS 06/29/2013 AVANI CAMACHO DO 787.02 NAUSEA ALONE 06/29/2013 AVANI CAMACHO DO V12.21 PERSONAL HISTORY OF GESTATIONAL DIABETES 06/29/2013 AVANI CAMACHO DO V23.9 , HIGH-RISK (UNSPEC) 06/29/2013 AVANI CAMACHO DO 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 OR THE PUERPERIUM UNSPECIFIED TO EPISODE OF CARE 06/29/2013 AVANI CAMACHO DO 649.00 COMPL OF - TOBACCO USE 06/29/2013 AVANI CAMACHO DO 654.20 PREVIOUS 06/29/2013 AVANI CAMACHO DO 787.02 NAUSEA ALONE 06/29/2013 AVANI CAMACHO DO V12.21 PERSONAL HISTORY OF GESTATIONAL DIABETES 06/29/2013 AVANI CAMACHO DO V23.9 , HIGH-RISK (UNSPEC) 07/03/2013 PARISH BLANKENSHIP, AGA Briceno Ot 558.9 NONINF GASTROENTERIT NEC 07/03/2013 PARISH BLANKENSHIP, AGA A Ot 648.93 OTH CURR COND-ANTEPARTUM 07/03/2013 PARISH BLANKENSHIP, AGA A Ot 787.01 NAUSEA WITH VOMITING 07/19/2013 DEVYN BLANKENSHIP, SUKUMAR Dyer Ot 648.93 OTH CURR COND-ANTEPARTUM 07/19/2013 DEVYN BLANKENSHIP, SUKUMAR Dyer Ot 789.00 ABDOMINAL PAIN, UNSPECIFIED SITE 07/20/2013 JEVON WHEELER APRN A 616.10 VAGINITIS AND VULVOVAGINITIS UNSPECIFIED 07/20/2013 JEVON WHEELER APRN A 616.10 VAGINITIS AND VULVOVAGINITIS UNSPECIFIED 07/20/2013 JEVON WHEELER APRN A 616.10 VAGINITIS AND VULVOVAGINITIS UNSPECIFIED 07/20/2013 AVANI CAMACHO DO 616.10 VAGINITIS AND VULVOVAGINITIS UNSPECIFIED 07/20/2013 JAYCE REVELES, WADE A 616.10 VAGINITIS AND VULVOVAGINITIS UNSPECIFIED 07/20/2013 AVANI CAMACHO DO 616.10 VAGINITIS AND VULVOVAGINITIS UNSPECIFIED 07/20/2013 ABILIO LUNAS, KASHIF Lawrence 616.10 VAGINITIS AND VULVOVAGINITIS UNSPECIFIED 07/20/2013 LUCY BLANKENSHIP, SILAS Lala 616.10 VAGINITIS AND VULVOVAGINITIS UNSPECIFIED 07/20/2013 JEVON WHEELER APRN A 616.10 VAGINITIS AND VULVOVAGINITIS UNSPECIFIED 07/20/2013 JEVON WHEELER APRN A 616.10 VAGINITIS AND VULVOVAGINITIS UNSPECIFIED 07/20/2013 [place] BLANKENSHIP, XAVI Lawrence 616.10 VAGINITIS AND VULVOVAGINITIS UNSPECIFIED 07/20/2013 AVANI CAMACHO DO 616.10 VAGINITIS AND VULVOVAGINITIS UNSPECIFIED 07/20/2013 AVANI CAMACHO DO 616.10 VAGINITIS AND VULVOVAGINITIS UNSPECIFIED 07/26/2013 TANISHA BUSBY MD Ot 380.10 INFEC OTITIS EXTERNA NOS 07/26/2013 TANISHA BUSBY MD Ot 388.70 OTALGIA NOS 07/27/2013 JEVON WHEELER APRN A V73.81 HPV SCREENING 07/27/2013 SUMMERCRISTI NAVA JEVON A V74.5 STD SCREEN 07/27/2013 SUMMERCRISTI NAVA, JEVON A V76.2 CERVICAL CANCER SCREENING (PAP SMEAR) 07/27/2013 JEVON WHEELER APRN A V73.81 HPV SCREENING 07/27/2013 SUMMERTIM COLIN APRNIDI A V74.5 STD SCREEN 07/27/2013 JEVON WHEELER APRN A V76.2 CERVICAL CANCER SCREENING (PAP SMEAR) 07/27/2013 AVANI CAMACHO DO V73.81 HPV SCREENING 07/27/2013 AVANI CAMACHO DO V74.5 STD SCREEN 07/27/2013 AVANI CAMACHO DO V76.2 CERVICAL CANCER SCREENING (PAP SMEAR) 07/27/2013 WADE EDUARDO PHD V73.81 HPV SCREENING 07/27/2013 WADE EDUARDO PHD V74.5 STD SCREEN 07/27/2013 WADE EDUARDO PHD V76.2 CERVICAL CANCER SCREENING (PAP SMEAR) 07/27/2013 AVANI CAMACHO DO V73.81 HPV SCREENING 07/27/2013 AVANI CAMACHO DO V74.5 STD SCREEN 07/27/2013 AVANI CAMACHO DO V76.2 CERVICAL CANCER SCREENING (PAP SMEAR) 07/27/2013 KASHIF KNOX DDS V73.81 HPV SCREENING 07/27/2013 KASHIF KNOX DDS V74.5 STD SCREEN 07/27/2013 KASHIF KNOX DDS V76.2 CERVICAL CANCER SCREENING (PAP SMEAR) 07/27/2013 SILAS AYALA MD V73.81 HPV SCREENING 07/27/2013 SILAS AYALA MD V74.5 STD SCREEN 07/27/2013 SILAS AYALA MD V76.2 CERVICAL CANCER SCREENING (PAP SMEAR) 07/27/2013 SUMMER NAVA JEVON A V73.81 HPV SCREENING 07/27/2013 SUMMER NAVA JEVON A V74.5 STD SCREEN 07/27/2013 SUMMER NAVA JEVON A V76.2 CERVICAL CANCER SCREENING (PAP SMEAR) 07/27/2013 SUMMER NAVA JEVON A V73.81 HPV SCREENING 07/27/2013 SUMMER NAVA JEVON A V74.5 STD SCREEN 07/27/2013 SUMMER LONGORIADai JEVON A V76.2 CERVICAL CANCER SCREENING (PAP SMEAR) 07/27/2013 RICO BLANKENSHIP, XAVI Lawrence V73.81 HPV SCREENING 07/27/2013 RICO BLANKENSHIP, XAVI Lawrence V74.5 STD SCREEN 07/27/2013 XAVI GÓMEZ MD V76.2 CERVICAL CANCER SCREENING (PAP SMEAR) 07/27/2013 AVANI CAMACHO DO V73.81 HPV SCREENING 07/27/2013 AVANI CAMACHO DO V74.5 STD SCREEN 07/27/2013 AVANI CAMACHO DO V76.2 CERVICAL CANCER SCREENING (PAP SMEAR) 07/27/2013 AVANI CAMACHO DO V73.81 HPV SCREENING 07/27/2013 AVANI CAMACHO DO V74.5 STD SCREEN 07/27/2013 AVANI CAMACHO DO V76.2 CERVICAL CANCER SCREENING (PAP SMEAR) 09/30/2013 LILIANA HUFFMAN DO Ot 305.70 AMPHETAMINE ABUSE-UNSPEC 09/30/2013 LILIANA HUFFMAN DO Ot 625.8 FEM GENITAL SYMPTOMS NEC 09/30/2013 LILIANA HUFFMAN DO Ot 648.43 MENTAL DISORDER-ANTEPART 09/30/2013 LILIANA HUFFMAN DO Ot 648.93 OTH CURR COND-ANTEPARTUM 12/22/2013 JAME BENITEZ DO Ot 644.21 EARLY ONSET DELIVERY-DEL 12/22/2013 JAME BENITEZ DO Ot 648.81 ABN GLUCOSE NIRU-DELIV 12/22/2013 JAME BENITEZ DO Ot 652.21 BREECH PRESENTAT-DELIVER 12/22/2013 JAME BENITEZ DO Ot 654.21 PREV DELIVRY W/ OR W/O MENT ANT 12/22/2013 BENITEZ DO, JAME C Ot 660.01 OBSTRUC/FET MALPOS-DELIV 12/22/2013 JAME BENITEZ DO Ot V06.1 [id number], COMBINED [ 12/22/2013 JAME BENITEZ DO Ot V27.0 DELIVER-SINGLE LIVEBORN 02/18/2014 JEVON WHEELER MEDICAL RECORDS TECH Ot V72.42 02/18/2014 SUMMERJEVON Lala MEDICAL RECORDS TECH Ot V28.81 02/19/2014 SANDY BLANKENSHIP, NAY Driscoll Ot 041.49 OTHER AND UNSPECIFIED ESCHERICHIA COLI [ 02/19/2014 SANDY BLANKENSHIP, NAY Driscoll Ot 296.20 DEPRESS DISORDER-UNSPEC 02/19/2014 SANDY BLANKENSHIP, NAY Driscoll Ot 305.1 TOBACCO USE DISORDER 02/19/2014 SANDY BLANKENSHIP, NAY Driscoll Ot 305.70 AMPHETAMINE ABUSE-UNSPEC 02/19/2014 NAY DELGADO MD Ot 309.81 POSTTRAUMATIC STRESS DISORDER 02/19/2014 NAY DELGADO MD Ot 590.10 AC PYELONEPHRITIS NOS 02/19/2014 NAY DELGADO MD Ot 041.49 02/19/2014 NAY DELGADO MD Ot 296.20 02/19/2014 NAY DELGADO MD Ot 305.1 02/19/2014 NAY DELGADO MD Ot 305.70 02/19/2014 NAY DELGADO MD Ot 309.81 02/19/2014 NAY DELGADO MD Ot 590.10 03/24/2014 JAYCE PHD, WADE A 296.33 MO DEPRESSIVE RECURRENT SEVERE W/O PSYCHOTIC BEHAVIOR 03/24/2014 AVANI CAMACHO DO 296.33 MO DEPRESSIVE RECURRENT SEVERE W/O PSYCHOTIC BEHAVIOR 03/24/2014 KASHIF KNOX DDS 296.33 MO DEPRESSIVE RECURRENT SEVERE W/O PSYCHOTIC BEHAVIOR 03/24/2014 LUCY BLANKENSHIP, SILAS Lala 296.33 MO DEPRESSIVE RECURRENT SEVERE W/O PSYCHOTIC BEHAVIOR 03/24/2014 JEVON WHEELER APRN A 296.33 MO DEPRESSIVE RECURRENT SEVERE W/O PSYCHOTIC BEHAVIOR 03/24/2014 JEVON WHEELER APRN A 296.33 MO DEPRESSIVE RECURRENT SEVERE W/O PSYCHOTIC BEHAVIOR 03/24/2014 XAVI GÓMEZ MD 296.33 MO DEPRESSIVE RECURRENT SEVERE W/O PSYCHOTIC BEHAVIOR 03/24/2014 AVANI CAMACHO DO 296.33 MO DEPRESSIVE RECURRENT SEVERE W/O PSYCHOTIC BEHAVIOR 03/24/2014 CAMACHO AVANI HEALY 296.33 MO DEPRESSIVE RECURRENT SEVERE W/O PSYCHOTIC BEHAVIOR 04/05/2014 AVANI CAMACHO DO V72.42 TEST POSITIVE RESULT 04/05/2014 WHITE DDS, KASHIF Lawrence V72.42 TEST POSITIVE RESULT 04/05/2014 SILAS AYALA MD V72.42 TEST POSITIVE RESULT 04/05/2014 SUMMER APRN, JEVON A V72.42 TEST POSITIVE RESULT 04/05/2014 SUMMER NAVA, JEVON A V72.42 TEST POSITIVE RESULT 04/05/2014 XAVI GÓMEZ MD V72.42 TEST POSITIVE RESULT 04/05/2014 AVANI CAMACHO DO V72.42 TEST POSITIVE RESULT 04/05/2014 AVANI CAMACHO DO V72.42 TEST POSITIVE RESULT 04/12/2014 KEISHA SU Ot 466.0 ACUTE BRONCHITIS 04/12/2014 KEISHA SU Ot 786.2 COUGH 04/14/2014 LUCY BLANKENSHIP, SILAS Lala 493.00 EXTRINSIC ASTHMA UNSPECIFIED 04/14/2014 SUMMER NAVA JEVON A 493.00 EXTRINSIC ASTHMA UNSPECIFIED 04/14/2014 SUMMER NAVA JEVON A 493.00 EXTRINSIC ASTHMA UNSPECIFIED 04/14/2014 XAVI GÓMEZ MD 493.00 EXTRINSIC ASTHMA UNSPECIFIED 04/14/2014 AVANI CAMACHO DO 493.00 EXTRINSIC ASTHMA UNSPECIFIED 04/14/2014 AVANI CAMACHO DO 493.00 EXTRINSIC ASTHMA UNSPECIFIED 04/19/2014 TIM WHEELERIDI A MEDICAL RECORDS TECH Ot V72.42 04/19/2014 SUMMER, JEVON A MEDICAL RECORDS TECH Ot V28.81 05/05/2014 SUMMER NAVA JEVON A V23.41 , HIGH RISK W/ HX OF PRE-TERM LABOR 05/05/2014 JEVON WHEELER APRN A V23.41 , HIGH RISK W/ HX OF PRE-TERM LABOR 05/05/2014 XAVI GÓMEZ MD V23.41 , HIGH RISK W/ HX OF PRE-TERM LABOR 05/05/2014 AVANI CAMACHO DO V23.41 , HIGH RISK W/ HX OF PRE-TERM LABOR 05/05/2014 AVANI CAMACHO DO K V23.41 , HIGH RISK W/ HX OF PRE-TERM LABOR 05/07/2014 LUCY BLANKENSHIP, SILAS Lala Ot V22.1 06/17/2014 JEVON WHEELER APRN V77.1 DIABETES SCREENING 06/17/2014 XAVI GÓMEZ MD V77.1 DIABETES SCREENING 06/17/2014 AVANI CAMACHO DO V77.1 DIABETES SCREENING 06/17/2014 AVANI CAMACHO DO V77.1 DIABETES SCREENING 08/11/2014 XAVI GÓMEZ MD Ot V28.89 09/24/2014 XAVI GÓMEZ MD Ot 648.93 OTH CURR COND-ANTEPARTUM 09/24/2014 XAVI GÓMEZ MD Ot 789.00 ABDOMINAL PAIN, UNSPECIFIED SITE 09/25/2014 AVANI CAMACHO DO Ot 648.93 OTH CURR COND-ANTEPARTUM 09/25/2014 AVANI CAMACHO DO Ot 787.02 NAUSEA ALONE 09/25/2014 AVANI CAMACHO DO Ot 789.00 ABDOMINAL PAIN, UNSPECIFIED SITE 09/28/2014 XAVI GÓMEZ MD Ot 655.73 DECR MOVEMNT ANTEPARTUM CONDITION 10/02/2014 XAVI GÓMEZ MD Ot 648.83 10/04/2014 JEVON WHELEER APRN Ot V72.42 10/04/2014 JEVON WHEELER APRN Ot V28.81 10/04/2014 SILAS AYALA MD Ot V22.1 10/04/2014 XAVI GÓMEZ MD Ot V28.89 10/04/2014 XAVI GÓMEZ MD Ot 648.83 10/17/2014 XAVI GÓMEZ MD Ot 621.8 DISORDERS OF UTERUS NEC 10/17/2014 XAVI GÓMEZ MD Ot 648.93 OTH CURR COND-ANTEPARTUM 10/18/2014 XAVI GÓMEZ MD Ot 648.93 10/18/2014 XAVI GÓMEZ MD Ot 789.01 10/18/2014 XAVI GÓMEZ MD Ot V23.41 11/04/2014 RICO MD, XAVI J Ot 621.8 DISORDERS OF UTERUS NEC 11/04/2014 XAVI GÓMEZ MD Ot 648.93 OTH CURR COND-ANTEPARTUM 11/04/2014 XAVI GÓMEZ MD Ot 654.23 PREV DELIVERY, ANTEPARTUM COND 11/06/2014 SUMMERTIMJEVON A MEDICAL RECORDS TECH Ot V72.42 11/06/2014 SUMMER JEVON A MEDICAL RECORDS TECH Ot V28.81 11/06/2014 SILAS AYALA MD Ot V22.1 11/06/2014 XAVI GÓMEZ MD, Ot V28.89 11/06/2014 XAVI GÓMEZ MD Ot 648.83 11/06/2014 XAVI GÓMEZ MD Ot 648.93 11/06/2014 XAVI GÓMEZ MD Ot 789.01 11/06/2014 XAVI GÓMEZ MD Ot V23.41 11/07/2014 XAVI GÓMEZ MD Ot 079.4 HUMAN PAPILLOMA VIRUS 11/07/2014 XAVI GÓMEZ MD Ot 285.9 ANEMIA NOS 11/07/2014 XAVI GÓMEZ MD Ot 301.9 PERSONALITY DISORDER NOS 11/07/2014 XAVI GÓMEZ MD Ot 305.73 AMPHETAMINE ABUSE-REMISS 11/07/2014 XAVI GÓMEZ MD Ot 309.81 POSTTRAUMATIC STRESS DISORDER 11/07/2014 XAVI GÓMEZ MD Ot 311 DEPRESSIVE DISORDER NEC 11/07/2014 XAVI GÓMEZ MD Ot 493.90 ASTHMA, UNSPECIFIED 11/07/2014 XAVI GÓMEZ MD Ot 530.81 ESOPHAGEAL REFLUX 11/07/2014 XAVI GÓMEZ MD Ot 644.21 EARLY ONSET DELIVERY-DEL 11/07/2014 XAVI GÓMEZ MD Ot 647.61 OTH VIRAL DIS-DELIVERED 11/07/2014 XAVI GÓMEZ MD Ot 648.21 ANEMIA-DELIVERED 11/07/2014 XAVI GÓMEZ MD Ot 648.41 MENTAL DISORDER-DELIVER 11/07/2014 XAVI GÓMEZ MD Ot 648.81 ABN GLUCOSE NIRU-DELIV 11/07/2014 XAVI GÓMEZ MD Ot 648.91 OTH CURR COND-DELIVERED 11/07/2014 XAVI GÓMEZ MD Ot 649.03 TOBACCO USE DISOR COMP PREG/CHILDBIRTH/P 11/07/2014 XAVI GÓMEZ MD Ot 654.21 PREV DELIVRY W/ OR W/O MENT ANT 11/07/2014 XAVI GÓMEZ MD Ot 656.61 EXCESS GRTH-DELIV 11/07/2014 XAVI GÓMEZ MD Ot 657.01 POLYHYDRAMNIOS,DEL W OR W/O MENTN ANTEPA 11/07/2014 XAVI GÓMEZ MD Ot 659.41 GRAND MULTIPARITY-DELIV 11/07/2014 XAVI GÓMEZ MD Ot V06.1 [id number], COMBINED [ 11/07/2014 XAVI GÓMEZ MD Ot V27.0 DELIVER-SINGLE LIVEBORN 12/01/2014 XAVI GÓMEZ MD Ot 079.4 12/01/2014 XAVI GÓMEZ MD Ot 285.9 12/01/2014 XAVI GÓMEZ MD Ot 301.9 12/01/2014 XAVI GÓMEZ MD Ot 305.73 12/01/2014 XAVI GÓMEZ MD Ot 309.81 12/01/2014 XAVI GÓMEZ MD Ot 311 12/01/2014 XAVI GÓMEZ MD Ot 493.90 12/01/2014 XAVI GÓMEZ MD Ot 530.81 12/01/2014 XAVI GÓMEZ MD Ot 644.21 12/01/2014 XAVI GÓMEZ MD Ot 647.61 12/01/2014 XAVI GÓMEZ MD Ot 648.21 12/01/2014 XAVI GÓMEZ MD Ot 648.41 12/01/2014 XAVI GÓMEZ MD Ot 648.81 12/01/2014 XAVI GÓMEZ MD Ot 648.91 12/01/2014 XAVI GÓMEZ MD Ot 649.03 12/01/2014 XAVI GÓMEZ MD Ot 654.21 12/01/2014 XAVI GÓMEZ MD Ot 656.61 12/01/2014 XAVI GÓMEZ MD Ot 657.01 12/01/2014 XAVI GÓMEZ MD Ot 659.41 12/01/2014 XAVI GÓMEZ MD Ot V06.1 12/01/2014 XAVI GÓMEZ MD, Ot V27.0 07/30/2016 JEVON WHEELER APRN Ot V72.42 EXAMINATION OR TEST, POSITIVE 07/30/2016 SUMMER JEVON Briceno APRN Ot V28.81 ENCOUNTER FOR ANATOMIC SURVEY 07/30/2016 SILAS AYALA MD Ot V22.1 SUPERVIS OTH NORMAL PREG 07/30/2016 XAVI GÓMEZ MD Ot V28.89 OTHER SPECIFIED SCREENING 07/30/2016 XAVI GÓMEZ MD Ot 648.83 ABN GLUCOSE-ANTEPARTUM 07/30/2016 XAVI GÓMEZ MD Ot 648.93 OTH CURR COND-ANTEPARTUM 07/30/2016 XAVI GÓMEZ MD, Ot 789.01 ABDOMINAL PAIN, RIGHT UPPER QUADRANT 07/30/2016 XAVI GÓMEZ MD, Ot V23.41 PREG W HISTORY OF PRE-TERM LABOR 07/30/2016 DEVYN BLANKENSHIP, SUKUMAR Dyer Ot S61.412A LACERATION WITHOUT FOREIGN BODY OF LEFT 07/30/2016 DEVYN BLANKENSHIP, SUKUMAR Dyer Ot Z53.21 PROC/TRTMT NOT CRD OUT D/T PT LV BEF SEE 07/31/2016 JEVON WHEELER APRN Ot V72.42 EXAMINATION OR TEST, POSITIVE 07/31/2016 JEVON WHEELER APRN Ot V28.81 ENCOUNTER FOR ANATOMIC SURVEY 07/31/2016 SILAS AYALA MD Ot V22.1 SUPERVIS OTH NORMAL PREG 07/31/2016 XAVI GÓMEZ MD, Ot V28.89 OTHER SPECIFIED SCREENING 07/31/2016 XAVI GÓMEZ MD Ot 648.83 ABN GLUCOSE-ANTEPARTUM 07/31/2016 XAVI GÓMEZ MD, Ot 648.93 OTH CURR COND-ANTEPARTUM 07/31/2016 XAVI GÓMEZ MD Ot 789.01 ABDOMINAL PAIN, RIGHT UPPER QUADRANT 07/31/2016 XAVI GÓMEZ MD, Ot V23.41 PREG W HISTORY OF PRE-TERM LABOR Procedures Code Description [place] [address] URINE TEST (IN-HOUSE) 01/13/2013 62972 US OB - EARLY <14 WEEKS 01/13/2013 67755 ROUTINE VENIPUNCTURE 01/21/2013 18296 HCG QUANTITATIVE 01/21/2013 71621 ROUTINE VENIPUNCTURE 01/23/2013 26269 HCG QUANTITATIVE 01/23/2013 89891 ROUTINE VENIPUNCTURE 01/26/2013 44791 HCG QUANTITATIVE 01/26/2013 22583 ROUTINE VENIPUNCTURE 01/28/2013 18691 HCG QUANTITATIVE 01/28/2013 74957 PSYCH DIAGNOSTIC EVALUATION 02/04/2013 33807 ROUTINE VENIPUNCTURE 02/09/2013 96903 PSYTX PT&/FAMILY 45 MINUTES 02/09/2013 57819 HCG QUANTITATIVE 02/09/2013 55736 ROUTINE VENIPUNCTURE 02/25/2013 24050 CMP 02/25/2013 14878 CBC 02/25/2013 18214 PSYTX PT&/FAMILY 45 MINUTES 02/25/2013 08085 TEST, URINE (IN-HOUSE) 06/01/2013 ELLEN BOYD 06/22/2013 05732 ROUTINE VENIPUNCTURE 06/29/2013 59154 UA OB DIP 2013 40533 URINE DRUG SCREEN (IN-HOUSE) 06/29/2013 74200 SYPHILLIS[facility] 06/29/2013 07934 HIV ([facility]) 06/29/2013 12257 ANTIBODY SCREEN (order) 06/29/2013 03595 HEP B SURFACE ANTIGEN ([facility]) 06/29/2013 13733 CBC 06/29/2013 92761 A1C (RML) 2013 86357 TSH 06/29/2013 8502717 ANTIBODY SCREEN (RESULT ONLY) 06/30/2013 59079 BLOOD TYPE/Rh FACTOR 06/30/2013 00261 RUBELLA ANTIBODY, IGG 06/30/2013 07991 CULTURE URINE 02555 UA W/ CULTURE IF INDICATED 07/20/2013 63357 US OB - EARLY <14 WEEKS 07/27/2013 68231 GC/CHLAM PROBE ([facility]) 07/27/2013 23829 PAP SMEAR 2013 Q0091 PAP SMEAR OBTAIN SMEAR 07/27/2013 53563 UA OB DIP 2013 90335 TRICHOMONAS (IN-HOUSE) 07/27/2013 74549 CULTURE UROGENITAL 07/28/2013 74.1 LOW CERVICAL 12/21/2013 50820 PSYCH DIAGNOSTIC EVALUATION 03/25/2014 79370 PSYCHO TESTING 1 HR W COMP 04/05/2014 92157 TEST, URINE (IN-HOUSE) 04/05/2014 35751 US OB - EARLY <14 WEEKS 04/14/2014 18028 CULTURE URINE 10/2014 09716 UA LONG DIP 04/14 37082 THERAPUTIC INJ SQ/IM 07/14/2014 62100 UA OB DIP 2014 17148 THERAPUTIC INJ SQ/IM 07/20/2014 25484 THERAPUTIC INJ SQ/IM 07/20/2014 46707 OB - COMPLETE >14 WEEKS 07/21/2014 98528 THERAPUTIC INJ SQ/IM 07/28/2014 74.1 LOW CERVICAL 11/06/2014 Results Encounters ACCT No. Visit Date/Time Discharge Status Pt. Type Provider Facility Loc./Unit Complaint [id number] 07/28/2014 11:51:00 07/28/2014 23: 59:59 CLS Outpatient AVANI CAMACHO DO [id number] 07/20/2014 14:01:00 07/20/2014 23: 59:59 CLS Outpatient AVANI CAMACHO DO [id number] 07/14/2014 14:09:00 07/14/2014 23: 59:59 CLS Outpatient XAVI GÓMEZ MD [id number] 06/17/2014 11:03:00 06/17/2014 23: 59:59 CLS Outpatient JEVON WHEELER APRN [id number] 05/05/2014 17:09:00 05/05/2014 23: 59:59 CLS Outpatient JEVON WHEELER APRN [id number] 04/14/2014 08:39:00 04/14/2014 23: 59:59 CLS Outpatient SILAS AYALA MD [id number] 04/06/2014 14:54:00 04/06/2014 23: 59:59 CLS Outpatient KASHIF KNOX DDS [id number] 04/05/2014 13:17:00 04/05/2014 23: 59:59 CLS Outpatient AVANI CAMACHO DO [id number] 03/24/2014 10:50:00 03/24/2014 23: 59:59 CLS Outpatient WADE EDUARDO PHD [id number] 08/13/2013 13:33:00 08/13/2013 23: 59:59 CLS Outpatient AVANI CAMACHO DO [id number] 07/27/2013 13:51:00 07/27/2013 23: 59:59 CLS Outpatient SUMMERJEVON Lala APRN [id number] 07/20/2013 15:55:00 07/20/2013 23: 59:59 CLS Outpatient SUMMERJEVON Lala APRN [id number] 07/20/2013 15:55:00 07/20/2013 23: 59:59 CLS Outpatient SUMMERJEVON Lala APRN [id number] 06/29/2013 10:16:00 06/29/2013 23: 59:59 CLS Outpatient SUMMERJEVON Lala APRN [id number] 06/22/2013 10:14:00 06/22/2013 23: 59:59 CLS Outpatient AVANI CAMACHO DO [id number] 06/01/2013 16:37:00 06/01/2013 23: 59:59 CLS Outpatient AVANI CAMACHO DO [id number] 05/06/2013 13:06:00 05/06/2013 23: 59:59 CLS Outpatient FAREED ANDREA APRNKaity [place] [id number] 02/25/2013 11:51:00 02/25/2013 23: 59:59 CLS Outpatient SILAS AYALA MD [id number] 02/25/2013 11:51:00 02/25/2013 23: 59:59 CLS Outpatient SILAS AYALA MD [id number] 02/09/2013 10:43:00 02/09/2013 23: 59:59 CLS Outpatient JEVON WHEELER APRN Kaity [id number] 02/06/2013 14:03:00 02/06/2013 23: 59:59 CLS Outpatient WADE EDUARDO PHD [id number] 02/03/2013 08:09:00 02/03/2013 23: 59:59 CLS Outpatient WADE EDUARDO PHD [id number] 01/28/2013 09:49:00 01/28/2013 23: 59:59 CLS Outpatient AVANI CAMACHO DO [id number] 01/26/2013 10:22:00 01/26/2013 23: 59:59 CLS Outpatient AVANI CAMACHO DO [id number] 01/23/2013 10:13:00 01/23/2013 23: 59:59 CLS Outpatient JEVON WHEELER APRN [id number] 01/21/2013 10:14:00 01/21/2013 23: 59:59 CLS Outpatient JEVON WHEELER APRN [id number] 01/13/2013 11:15:00 01/13/2013 23: 59:59 CLS Outpatient JEVON WHEELER APRN
--- NOTE | 2016-10-02 12:32 | ED Back Pain ---
General Chief Complaint: Back Problems Stated Complaint: BACK PAIN Nursing Triage Note: PT CO OF BACK PAIN L HIP AREA X 2 WEEKS, DENIES INJURY Nursing Sepsis Screen: No Definite Risk Source of Information: Patient, Spouse Exam Limitations: No Limitations History of Present Illness Time Seen by Provider: 12:32 Initial Comments 35-year-old female patient presents to the emergency department complains of low back pain radiating into the left buttock 2 weeks. Denies known injury. Denies contacting her PCP. Denies bowel or bladder incontinence. Location: Paraspinous Muscles (left low back) Timing/Duration: Getting Worse, Other (2 wk onset.) Pain/Injury Location: Back (left low back) Radiation: Buttocks (left buttock) Method of Injury: Unknown Modifying Factors: Worse With Movement Associated Symptoms: muscle spasms, No fever, No weakness, No numbness in legs/ feet, No tingling in legs/feet, No sensory/motor loss, lower back pain, No loss of bladder control, No loss of bowel control Allergies and Home Medications Allergies Coded Allergies: Dihydroxyacetone (Verified Allergy, Unknown, 09/30/13) Shellfish (Unverified Allergy, Unknown, 09/30/13) Uncoded Allergies: BEES (Allergy, Unknown, 09/30/13) SEAFOOD (Allergy, Unknown, 09/30/13) Constitutional: No chills, No fever, No malaise Respiratory: no symptoms reported Cardiovascular: no symptoms reported Gastrointestinal: No abdominal pain, No constipation, No diarrhea, No nausea, No vomiting Genitourinary: No decreased output, No discharge, No dysuria, No frequency, No hematuria Musculoskeletal: see HPI, back pain, joint pain (left buttock) Skin: no symptoms reported Psychiatric/Neurological: Denies Numbness, Denies Paresthesia, Denies Tingling , Denies Weakness All Other Systems Reviewed Negative Unless Noted: Yes (Negative excepted noted.) Past Ziyvbfv-Neegfi-Ssuhoz Hx Patient Social History Alcohol Use: Denies Use Recreational 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) Smoking Status: Current Everyday Smoker Type Used: Cigarettes Recent Foreign Travel: No Contact w/Someone Who Travel: No Recent Infectious Disease Expo: No Recent Hopitalizations: No Immunizations Up To Date Tetanus Booster (TDap): Less than 5yrs PED Vaccines UTD: No Seasonal Allergies Seasonal Allergies: Yes Surgeries HX Surgeries: Yes (TUBES IN EARS, CERVICAL, C SECTION TIMES4) Surgeries: Section Respiratory Hx Respiratory Disorders: Yes Respiratory Disorders: Asthma Cardiovascular Hx Cardiac Disorders: No Neurological Hx Neurological Disorders: Yes (MINI SEIZURES) Reproductive System Hx Reproductive Disorders: Yes (CERVICAL SURG) 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 Reproductive Disorders: Denies Genitourinary Hx Genitourinary Disorders: Yes Genitourinary Disorders: UTI-Chronic Gastrointestinal Hx Gastrointestinal Disorders: Yes Gastrointestinal Disorders: Gastroesophageal Reflux, Ulcer Musculoskeletal Hx Musculoskeletal Disorders: No Endocrine Hx Endocrine Disorders: Yes ("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, Non-Insulin dep HEENT HX ENT Disorders: No Loss of Vision: Denies Hearing Impairment: Denies Cancer Hx Cancer: Yes Cancer: Cervical Psychosocial Hx Psychiatric Problems: Yes Behavioral Health Disorders: Anxiety, PTSD, Personality Disorder, Depression Integumentary HX Skin/Integumentary Disorder: Yes (SHINGLES) Skin/Integumentary Disorders: Recent Skin Changes Blood Transfusions Hx Blood Disorders: Yes (ANEMIA) Adverse Reaction to a Blood Tr: No Reviewed Nursing Assessment Reviewed/Agree w Nursing PMH: Yes Family Medical History Significant Family History: No Pertinent Family Hx Family Medial History: Alcoholism 19 MOTHER Cardiovascular disease 19 MOTHER Colon cancer Completed stroke 19 FATHER Drug abuse 19 MOTHER Myocardial infarction 19 FATHER (FATHER, [place] ) OVERDOSE MOM No Family History of: AIDS Abdominal aortic aneurysm [place]'s disease Alzheimer's disease Aphasia Arthritis Asthma Cancer of mouth Cataracts Congenital disease Congenital heart disease Coronary thrombosis Cystic fibrosis Deafness or hearing loss Dementia Diabetes mellitus Dysphasia Fibrocystic disease of breast Gastroenteritis Glaucoma Headache disorder Hypercholesterolemia Hypertension Kidney disease Neoplasm Not obtainable due to adoption Osteoporosis Parkinson's disease Prostate cancer Psychosocial problem Respiratory disorder Seizure disorder Severe allergy Thyroid disease Tuberculosis Visual disorder Physical Exam Vital Signs Vital Sign - Last 12Hours 10/02/16 12:16 Temp 97.1 Pulse 97 Resp 18 B/P (MAP) 129/86 Pulse Ox 99 Capillary Refill : Less Than 3 Seconds General Appearance: No Apparent Distress, WD/WN HEENT: PERRL/EOMI, Pharynx Normal Neck: Full Range of Motion, Normal Inspection, Non Tender, Supple Cardiovascular: Regular Rate, Rhythm, No Edema, No Murmur, Normal Peripheral Pulses Respiratory: Lungs Clear, Normal Breath Sounds, No Respiratory Distress Peripheral Pulses: 2+ Dorsalis Pedis (R), 2+ Left Dors-Pedis (L), 2+ Radial Pulses (R), 2+ Radial Pulses (L) Gastrointestinal: Normal Bowel Sounds, No Organomegaly, Non Tender, Soft Back: Normal Inspection, Decreased Range of Motion, Muscle Spasm (left low back ), No Vertebral Tenderness Extremity: Normal Capillary Refill, Normal Inspection, Normal Range of Motion, No Pedal Edema, Other (soft tissue tenderness of the left buttock without swelling.) Neurologic/Psychiatric: Alert, Oriented x3, No Motor/Sensory Deficits, Normal Mood/Affect Skin: Normal Color, Warm/Dry Progress/Results/Core Measures Results/Orders My Orders Orders - KEISHA ANDERS Ketorolac Injection (Toradol Injection) (10/02/16 12:40) Orphenadrine Injection (Norflex Injectio (10/02/16 12:40) Vital Signs/I&O Vital Sign - Last 12Hours 10/02/16 12:16 Temp 97.1 Pulse 97 Resp 18 B/P (MAP) 129/86 Pulse Ox 99 Blood Pressure Mean: 100 Departure Communication Progress Notes Patient seen and evaluated. Patient given 1 dose of Toradol and Norflex IM try to discharge. Discharge to home with prescriptions for prednisone, ibuprofen, and Flexeril. Impression Impression: Primary Impression: Lumbar radiculopathy Disposition: HOME, SELF-CARE Condition: Improved Departure-Patient Inst. Decision time for Depature: 12:44 Referrals: [facility] (PCP/Family) Primary Care Physician Patient Instructions: Radiculopathy (DC), Low Back Pain (DC) Add. Discharge Instructions: All discharge instructions reviewed with patient and/or family. Voiced understanding. Medications as instructed. Tylenol extra strength over-the- counter as directed for pain. Heating pad or packs as needed for pain. Avoid lifting, pushing, pulling, twisting, bending, climbing 5-7 days. Increase activity slowly as tolerated when symptoms improve. Follow-up with your family practitioner for recheck if no improvement in symptoms in 7-10 days. Return to the emergency department for worsened pain, numbness, weakness, bowel incontinence, bladder incontinence, or any other concerns. Scripts Prednisone (Prednisone) 20 Mg Tab 40 MG PO DAILY, #10 TAB 0 Refills Prov: KEISHA ANDERS 10/02/16 Ibuprofen (Ibuprofen) 800 Mg Tablet 800 MG PO Q8H Y for PAIN, #20 TAB 0 Refills Prov: KEISHA ANDERS 10/02/16 Cyclobenzaprine HCl (Cyclobenzaprine HCl) 10 Mg Tablet 10 MG PO Q8H Y for SPASMS, #14 TAB 0 Refills Prov: KEISHA ANDERS 10/02/16 KEISHA ANDERS Oct 02, 2016 12:32
[2016-10-02] MEDS ORDERED: KETOROLAC 60 MG/2 ML VIAL IM STA (12:40)
[2016-10-02] MEDS ORDERED: ORPHENADRINE 60 MG/2 ML (NORFLEX) AMP IM STA (12:40)
[2016-10-02] MEDS ORDERED: IBUP-1780 PO (12:46)
[2016-10-02] MEDS ORDERED: CYCL10TA9 PO (12:46)
[2016-10-02] MEDS ORDERED: PRD20T PO (12:46)
[2016-10-02 13:16] VITALS: BP 128/84
== END 2016-10-02 13:16 | disposition home or self-care (01) ==
LOC: EDUNIT# 12:08 → ER 12:10
DX: M54.16 Radiculopathy, lumbar region (principal); J45.909 Unspecified asthma, uncomplicated; E11.649 Type 2 diabetes mellitus with hypoglycemia without coma; F41.9 Anxiety disorder, unspecified; F32.9 Major depressive disorder, single episode, unspecified; F43.10 Post-traumatic stress disorder, unspecified; F17.210 Nicotine dependence, cigarettes, uncomplicated; Z85.41 Personal history of malignant neoplasm of cervix uteri
CPT/HCPCS: 96372; 99281

== ENCOUNTER 2016-11-18 23:33 | Emergency (ER) | payer SELFPAY ==
[~2016-11-18] VITALS: Ht 157.5 cm; Wt 90.7 kg
[~2016-11-18 23:33] MED LIST changes: +CYCL10TA9 PO; +IBUP-1780 PO
[2016-11-19] MEDS ORDERED: NEOM10DR42 OT (00:36)
[2016-11-19] MEDS ORDERED: FLUT9.9S NS (00:36)
--- NOTE | 2016-11-19 00:36 | ED EENT ---
History of Present Illness General Chief Complaint: Ear Problems Stated Complaint: HEAD EAR PAIN Nursing Triage Note: C/O R EAR PAIN Source: patient, other (boyfriend) Exam Limitations: no limitations History of Present Illness Time seen by provider: 00:27 Initial Comments Patient presents to ER by private conveyance with chief complaint of proximal 1 week progressively worsening right side of her ear and jaw hurting. She is especially tender around her ear canal. She has no discharge or drainage. No tooth pain area she says she saw her dentist about a month ago because it was hurting on the left side of her face at that time and he told her it was probably more likely her sinuses. She says she went saw her doctor and her doctor told her she did not have a sinus infection at that time. That resolved and now she is having on the right side of her face. She's had no nasal discharge nor oral discharge. She has had no fevers or chills although sometimes on the pain gets her bad she will have nausea. She does use ibuprofen 800 mg every 6 hours. No other significant medical history nor she on any medicines. Her last period was one week ago. Allergies and Home Medications Allergies Coded Allergies: Dihydroxyacetone (Verified Allergy, Unknown, 09/30/13) Shellfish (Unverified Allergy, Unknown, 09/30/13) Uncoded Allergies: BEES (Allergy, Unknown, 09/30/13) SEAFOOD (Allergy, Unknown, 09/30/13) Home Medications Fluticasone Propionate 9.9 Ml [place].susp, 2 PUFF NS BID for 14 Days, #1 Ref 0 Prescribed by: MARILEE SEALS on 11/19/16 0036 Neomycin/Polymyxin B Sulf/Hc 10 Ml Drops.susp, 2 DROPS OT TID for 10 Days, #1 Ref 0 Prescribed by: MARILEE SEALS on 11/19/16 0036 Review of Systems Constitutional: No chills, No diaphoresis, dizziness, No fever, malaise Eyes: Denies Blindness, Denies Drainage, Denies Pain Ears: Pain, Denies Tinnitus, Denies Bloody Discharge, Denies Clear Discharge, Denies Purulent Discharge, Denies Serosanguinous Discharge, Denies Previous Injury Nose: denies clots, denies congestion Mouth: denies clots, denies loose teeth, denies pain Throat: denies pain, denies swelling, denies discharge Respiratory: No cough, No short of breath Cardiovascular: No chest pain, No palpitations Gastrointestinal: No constipation, No diarrhea, No nausea Musculoskeletal: No back pain, No joint pain Skin: No pruritus, No rash Neurological: Headache, Denies Numbness, Denies Paresthesia Past Ewkkvdf-Jpsvkd-Lvqphq Hx Patient Social History Alcohol Use: Denies Use Recreational Drug Use: No (Hx Meth and Amphetamines) Smoking Status: Current Everyday Smoker Type Used: Cigarettes Recent Foreign Travel: No Contact w/Someone Who Travel: No Recent Infectious Disease Expo: No Recent Hopitalizations: No Immunizations Up To Date Tetanus Booster (TDap): Less than 5yrs PED Vaccines UTD: No Seasonal Allergies Seasonal Allergies: Yes Surgeries HX Surgeries: Yes (TUBES IN EARS, CERVICAL, C SECTION TIMES4) Surgeries: Section Respiratory Hx Respiratory Disorders: Yes Respiratory Disorders: Asthma Cardiovascular Hx Cardiac Disorders: No Neurological Hx Neurological Disorders: Yes (MINI SEIZURES) Reproductive System Hx Reproductive Disorders: Yes (CERVICAL SURG) 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 Reproductive Disorders: Denies Genitourinary Hx Genitourinary Disorders: Yes Genitourinary Disorders: UTI-Chronic Gastrointestinal Hx Gastrointestinal Disorders: Yes Gastrointestinal Disorders: Gastroesophageal Reflux, Ulcer Musculoskeletal Hx Musculoskeletal Disorders: No Endocrine Hx Endocrine Disorders: Yes ("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, Non-Insulin dep HEENT HX ENT Disorders: No Loss of Vision: Denies Hearing Impairment: Denies Cancer Hx Cancer: Yes Cancer: Cervical Psychosocial Hx Psychiatric Problems: Yes Behavioral Health Disorders: Anxiety, PTSD, Personality Disorder, Depression Integumentary HX Skin/Integumentary Disorder: Yes (SHINGLES) Skin/Integumentary Disorders: Recent Skin Changes Blood Transfusions Hx Blood Disorders: Yes (ANEMIA) Adverse Reaction to a Blood Tr: No Family Medical History Significant Family History: No Pertinent Family Hx Family Medial History: Alcoholism 19 MOTHER Cardiovascular disease 19 MOTHER Colon cancer Completed stroke 19 FATHER Drug abuse 19 MOTHER Myocardial infarction 19 FATHER (FATHER, [place] ) OVERDOSE MOM No Family History of: AIDS Abdominal aortic aneurysm Saurav's disease Alzheimer's disease Aphasia Arthritis Asthma Cancer of mouth Cataracts Congenital disease Congenital heart disease Coronary thrombosis Cystic fibrosis Deafness or hearing loss Dementia Diabetes mellitus Dysphasia Fibrocystic disease of breast Gastroenteritis Glaucoma Headache disorder Hypercholesterolemia Hypertension Kidney disease Neoplasm Not obtainable due to adoption Osteoporosis Parkinson's disease Prostate cancer Psychosocial problem Respiratory disorder Seizure disorder Severe allergy Thyroid disease Tuberculosis Visual disorder Physical Exam Vital Signs Vital Sign - Last 12Hours 11/18/16 23:47 Temp 98.4 Pulse 86 Resp 18 B/P (MAP) 113/55 Pulse Ox 98 General Appearance: WD/WN, mild distress Eyes: bilateral eye EOMI, bilateral eye PERRL, bilateral eye normal inspection Ears: right ear erythema, right ear other (TM retraction with clear effusion. Otosclerosis seen on both TMs.), right ear swelling (canal), right ear tenderness, left ear canal normal, bilateral ear auricle normal Nose: normal inspection, No active bleeding Mouth/Throat: No tonsillar exudate, No tonsillar swelling Neck: non-tender, full range of motion, supple, normal inspection Cardiovascular: normal peripheral pulses, regular rate, rhythm Respiratory: lungs clear, normal breath sounds Gastrointestinal: non tender, soft Neurologic/Psychiatric: alert, oriented x 3 Skin: normal color, warm/dry Progress/Results/Core Measures Results/Orders My Orders Orders - MARILEE SEALS Diphenhydramine Tablet (Benadryl Tablet) (11/19/16 00:45) Rx-Ondansetron Po (Rx-Zofran Po) (11/19/16 00:37) Medications Given in ED Current Medications Medications Dose Ordered Sig/Sharyn Route Start Time Stop Time Status Last Admin Dose Admin Diphenhydramine HCl 25 mg ONCE ONCE PO 11/19/16 00:45 11/19/16 00:45 DC 11/19/16 00:42 25 MG Vital Signs/I&O Vital Sign - Last 12Hours 11/18/16 11/19/16 23:47 00:44 Temp 98.4 98.4 Pulse 86 86 Resp 18 18 B/P (MAP) 113/55 Pulse Ox 98 98 Blood Pressure Mean: 74 Progress Note : Time: 01:51 Progress Note Patient's asking for something to help her sleep tonight. So Benadryl was given. We'll have her treated with steroids and topical antibiotics at this is not improving she can follow-up with her primary care physician this week. Departure Impression Impression: Primary Impression: Otitis externa Qualified Codes: H60.501 - Unspecified acute noninfective otitis externa, right ear Additional Impression: Otitis media with effusion Qualified Codes: H65.91 - Unspecified nonsuppurative otitis media, right ear Disposition: 01 HOME, SELF-CARE Condition: Stable Departure-Patient Inst. Decision time for Depature: 00:33 Referrals: [facility] (PCP/Family) Primary Care Physician Patient Instructions: How to Use Ear Drops Add. Discharge Instructions: Apply 2 drops of the eardrops 3 times a day to your right ear. Be careful not to contaminate the bottle. Drink plenty of fluids and use Tylenol 1000 mg every 8 hours in combination with ibuprofen 800 mg every 8 hours. You may also apply a cool washcloth or ice to your side your ear. He can also help. Vapor rubs humidifiers may also help open up your sinuses. Apply than Flonase 2 puffs each nostril twice a day for the next 2 weeks or until your symptoms resolved. If you have new or worsening symptoms he may return to the ER or to your primary care physician during the day. All discharge instructions reviewed with patient and/or family. Voiced understanding. Scripts Fluticasone Propionate (Flonase Allergy Relief) 9.9 Ml [place].susp 2 PUFF NS BID for 14 Days, #1 EA 0 Refills Prov: MARILEE SEALS 11/19/16 Neomycin/Polymyxin B Sulf/Hc (Exaepczp-Uqoayqrfg-Qy Ear Susp) 10 Ml Drops.susp 2 DROPS OT TID for 10 Days, #1 EA 0 Refills Prov: MARILEE SEALS 11/19/16 Copy Copies To 1: AVANI CAMACHO TITUS J Nov 19, 2016 00:36
[2016-11-19] MEDS ORDERED: RX-ONDANSETRON 4 MG ODT (ZOFRAN) PPK #4 ONE (00:37)
[2016-11-19 00:44] VITALS: BP 113/55
[2016-11-19] MEDS ORDERED: diphenhydrAMINE 25 MG TAB (BENADRYL) PO ONE (00:45)
== END 2016-11-19 00:44 | disposition home or self-care (01) ==
LOC: EDUNIT# 23:33 → ER 23:35
DX: H65.91 Unspecified nonsuppurative otitis media, right ear (principal); H60.91 Unspecified otitis externa, right ear; J45.909 Unspecified asthma, uncomplicated; K21.9 Gastro-esophageal reflux disease without esophagitis; E11.9 Type 2 diabetes mellitus without complications; F41.9 Anxiety disorder, unspecified; F43.10 Post-traumatic stress disorder, unspecified; F32.9 Major depressive disorder, single episode, unspecified; F17.210 Nicotine dependence, cigarettes, uncomplicated; Z82.49 Family history of ischemic heart disease and other diseases of the circulatory system; Z87.59 Personal history of other complications of pregnancy, childbirth and the puerperium; Z86.19 Personal history of other infectious and parasitic diseases; Z87.440 Personal history of urinary (tract) infections
CPT/HCPCS: 99283

== ENCOUNTER 2016-12-01 18:29 | Emergency (ER) | payer SELFPAY ==
[~2016-12-01] VITALS: Ht 157.5 cm; Wt 90.7 kg
[~2016-12-01 18:29] MED LIST changes: +FLUT9.9S NS; +NEOM10DR42 OT
--- NOTE | 2016-12-01 18:46 | ED EENT ---
History of Present Illness General Chief Complaint: Ear Problems Stated Complaint: R EAR PAIN Source: patient, family Exam Limitations: no limitations History of Present Illness Time seen by provider: 18:39 Initial Comments Patient presents to ER with her significant other a private conveyance with chief complaint of continued right ear pain. She was seen in the ER by this provider possibly 2 weeks ago and was having swelling without fevers chills or drainage at that time this is the same complaint. At the time she was given a topical steroid as well as topical antibiotics and steroid polymyxin hydrocortisone. She says she did not fill either one because they were each $40 a piece and she does not have insurance. She has not seen her primary care provider at [facility]. She is having significant pain and has been using Tylenol and ibuprofen as prescribed. She continued to have no nausea, fevers, chills, confusion, loss of appetite, diarrhea. Allergies and Home Medications Allergies Coded Allergies: Dihydroxyacetone (Verified Allergy, Unknown, 09/30/13) Shellfish (Unverified Allergy, Unknown, 09/30/13) Uncoded Allergies: BEES (Allergy, Unknown, 09/30/13) SEAFOOD (Allergy, Unknown, 09/30/13) Home Medications Fluticasone Propionate 9.9 Ml [place].susp, 2 PUFF NS BID for 14 Days, #1 Ref 0 Prescribed by: MARILEE SEALS on 11/19/16 003 Neomycin/Polymyxin B Sulf/Hc 10 Ml Drops.susp, 2 DROPS OT TID for 10 Days, #1 Ref 0 Prescribed by: MARILEE SEALS on 11/19/166 Review of Systems Constitutional: No chills, No diaphoresis Eyes: Denies Blindness, Denies Drainage Ears: Denies Dizziness, Pain, Denies Tinnitus, Denies Bloody Discharge, Denies Clear Discharge, Denies Purulent Discharge, Denies Serosanguinous Discharge, Denies Previous Injury Nose: denies clots, denies congestion Mouth: denies clots, denies loose teeth Throat: denies pain, denies swelling Respiratory: No cough, No short of breath Cardiovascular: No chest pain, No palpitations Gastrointestinal: No diarrhea, No nausea : No Musculoskeletal: No joint pain, No joint swelling Skin: No pruritus, No rash Neurological: Headache, Denies Numbness, Denies Paresthesia Past Cbujzby-Mmfiyn-Kbtvov Hx Patient Social History Alcohol Use: Denies Use Recreational 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) Smoking Status: Current Everyday Smoker Type Used: Cigarettes 2nd Hand Smoke Exposure: Yes Recent Foreign Travel: No Contact w/Someone Who Travel: No Recent Hopitalizations: No Immunizations Up To Date Tetanus Booster (TDap): Less than 5yrs PED Vaccines UTD: No Seasonal Allergies Seasonal Allergies: Yes Surgeries History of Surgeries: Yes (TUBES IN EARS, CERVICAL, C SECTION TIMES4) Surgeries: Section Respiratory History of Respiratory Disorde: Yes Respiratory Disorders: Asthma Cardiovascular History of Cardiac Disorders: No Neurological History of Neurological Disord: Yes (MINI SEIZURES) Reproductive System Hx Reproductive Disorders: Yes (CERVICAL SURG) 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 Reproductive Disorders: Denies Genitourinary Genitourinary Disorders: UTI-Chronic Gastrointestinal History of Gastrointestinal Di: Yes Gastrointestinal Disorders: Gastroesophageal Reflux, Ulcer Musculoskeletal History of Musculoskeletal Dis: No Endocrine History of Endocrine Disorders: Yes ("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, Non-Insulin dep HEENT Loss of Vision: Denies Hearing Impairment: Denies Cancer History of Cancer: Yes Cancer: Cervical Psychosocial History of Psychiatric Problem: Yes Behavioral Health Disorders: Anxiety, PTSD, Personality Disorder, Depression Integumentary History of Skin or Integumenta: Yes (SHINGLES) Skin/Integumentary Disorders: Recent Skin Changes Blood Transfusions History of Blood Disorders: Yes (ANEMIA) Adverse Reaction to a Blood Tr: No Family Medical History Significant Family History: No Pertinent Family Hx Family Medial History: Alcoholism 19 MOTHER Cardiovascular disease 19 MOTHER Colon cancer Completed stroke 19 FATHER Drug abuse 19 MOTHER Myocardial infarction 19 FATHER (FATHER, [place] ) OVERDOSE MOM No Family History of: AIDS Abdominal aortic aneurysm Saurav's disease Alzheimer's disease Aphasia Arthritis Asthma Cancer of mouth Cataracts Congenital disease Congenital heart disease Coronary thrombosis Cystic fibrosis Deafness or hearing loss Dementia Diabetes mellitus Dysphasia Fibrocystic disease of breast Gastroenteritis Glaucoma Headache disorder Hypercholesterolemia Hypertension Kidney disease Neoplasm Not obtainable due to adoption Osteoporosis Parkinson's disease Prostate cancer Psychosocial problem Respiratory disorder Seizure disorder Severe allergy Thyroid disease Tuberculosis Visual disorder Physical Exam Vital Signs Vital Sign - Last 12Hours 12/01/16 18:38 Temp 98.0 Pulse 115 Resp 20 B/P (MAP) 135/82 Pulse Ox 97 O2 Delivery Room Air General Appearance: WD/WN, mild distress Eyes: bilateral eye normal inspection, bilateral eye PERRL, bilateral eye EOMI Ears: right ear swelling, right ear tenderness (erythematous), left ear canal normal, bilateral ear auricle normal, bilateral ear TM normal Nose: normal inspection, No active bleeding Mouth/Throat: normal mouth inspection, pharynx normal, No dental tenderness Neck: non-tender, full range of motion, supple Cardiovascular: normal peripheral pulses, regular rate, rhythm, no edema Respiratory: chest non-tender, lungs clear, normal breath sounds Gastrointestinal: non tender, soft Neurologic/Psychiatric: alert, oriented x 3 Skin: normal color, warm/dry Progress/Results/Core Measures Results/Orders My Orders Orders - MARILEE SEALS Ketorolac Injection (Toradol Injection) (12/01/16 18:47) Rocephin 1000mg Im (12/01/16 19:00) Lidocaine 1% Injection (Xylocaine 1% Inj (12/01/16 19:00) Vital Signs/I&O Vital Sign - Last 12Hours 12/01/16 18:38 Temp 98.0 Pulse 115 Resp 20 B/P (MAP) 135/82 Pulse Ox 97 O2 Delivery Room Air Progress Note : Time: 18:45 Progress Note Patient is not picking up her topical antibiotics or hydrocortisone nor did she become Flonase despite it being about $8 [id number] for a month's supply. We will trial her on oral systemic steroids and antibiotics instead. Departure Impression Impression: Primary Impression: Otitis externa Qualified Codes: H60.391 - Other infective otitis externa, right ear Disposition: 01 HOME, SELF-CARE Condition: Stable Departure-Patient Inst. Decision time for Depature: 18:50 Referrals: [facility] (PCP/Family) Primary Care Physician Patient Instructions: Outer Ear Infection (DC) Add. Discharge Instructions: Drink plenty of fluids and use the Tylenol 1000 mm every 8 hours or ibuprofen 800 mg every 8 hours as needed to control your pain. Can also use vapor rubs or cool ice packs over the ear. Take the prednisone one tablet daily for the next 5 days. This will bring down the swelling and cause less pain. Take the antibiotics one capsule 3 times a day to completion to help cure you're here infection. If you are not improving by day 3 or 4 you develop fevers or nausea and vomiting you should go to your primary care physician's office for further management. All discharge instructions reviewed with patient and/or family. Voiced understanding. Scripts Amoxicillin (Amoxicillin) 500 Mg Capsule 500 MG PO TID for 10 Days, #30 CAP 0 Refills Prov: MARILEE SEALS 12/01/16 Prednisone (Prednisone) 20 Mg Tab 20 MG PO DAILY for 6 Days, #6 TAB 0 Refills Prov: MARILEE SEALS 12/01/16 Copy Copies To 1: AVANI CAMACHO TITUS J Dec 01, 2016 18:46
[2016-12-01] MEDS ORDERED: PRD20T PO (18:52)
[2016-12-01] MEDS ORDERED: AMOX500C2 PO (18:52)
[2016-12-01] MEDS: KETOROLAC 30 MG/ML VIAL IM STA (19:00)
[2016-12-01] MEDS: LIDOCAINE 1% INJ 20 ML (XYLOCAINE) VIAL INJ ONE (19:01)
[2016-12-01] MEDS: cefTRIAXone 1 GM (ROCEPHIN) VIAL IM ONE (19:01)
[2016-12-01 19:09] VITALS: BP 146/86
--- OUTSIDE RECORDS SUMMARY | 2016-12-03 10:19 | XMS REPORT | Continuity of Care Document ---
Author Author [employer] Organization [facility] Address Unknown Phone Unavailable Care Team Providers Care Bonsai Tender Name Role Phone [employer] Unavailable Unavailable Problems Medications Allergies, Adverse Reactions, Alerts Immunizations Results Vital Signs Vital Sign Value Date Comments Source Systolic Blood Pressure Cuff Monitored <content ID=' [id number]'>118</content>/<content ID='[id number]'>74</content> mm[Hg ] 12/31/2013 [facility] Temperature Route Oral
</br>(12/31/2013 16:54:00) <sup> </sup> 12/31/2013 [facility] Temperature Celsius 36.7 Kerry 12/31/2013 [facility] Heart Rate 74 bpm 12/31/2013 [facility] Respiratory Rate 18 BR/min [facility] Heart Rate 92 bpm 12/25/2013 [facility] Respiratory Rate 18 BR/min [facility] Encounters Location Location Details Encounter Type Encounter Number Reason For Visit Attending Provider ADM Date DC Date Status Source [facility] Non Billable [id number] 12/25/2013 12/25/2013 [facility] CLI [id number] Incision Check Rex Prasad 12/25/2013 12/25/2013 [facility] CLI [id number] Incision Check Berry Eli 12/31/2013 12/31/2013 [facility] Procedures Plan of Care Social History Assessment and Plan Family History Value Date Source Advance Directives Order Name Results Value Date Source
--- OUTSIDE RECORDS SUMMARY | 2016-12-03 10:25 | XMS REPORT | Continuity of Care Document ---
Author Author [facility] Address Unknown Phone Unavailable Allergies Active Description Code Type Severity Reaction Onset Reported/Identified Relationship to Patient Clinical Status Yes Cromolyn Drug Allergy N/A N/A 02/17/2009 Yes BEES BEES Unknown N/A 09/30/2013 Yes Dihydroxyacetone [id number] Drug Allergy Unknown N/A 09/30/2013 Yes SEAFOOD SEAFOOD Unknown N/A 09/30/2013 Yes Shellfish [id number] Drug Allergy Unknown N/A 09/30/2013 Medications Problems [...] 372.14 OTHER CHRONIC ALLERGIC CONJUNCTIVITIS 02/05/2009 SUMMER SWITCHBOARD INSPECTOR, JEVON A 372.14 OTHER CHRONIC ALLERGIC CONJUNCTIVITIS 02/05/2009 SUMMER SWITCHBOARD INSPECTOR, JEVON A 372.14 OTHER CHRONIC ALLERGIC CONJUNCTIVITIS 02/05/2009 SUMMER SWITCHBOARD INSPECTOR, JEVON A 372.14 OTHER CHRONIC ALLERGIC CONJUNCTIVITIS 02/05/2009 CAMACHO DO, AVANI K 372.14 OTHER CHRONIC ALLERGIC CONJUNCTIVITIS 02/05/2009 JAYCE REVELES, WADE Briceno 372.14 OTHER CHRONIC ALLERGIC CONJUNCTIVITIS 02/05/2009 CAMACHO DO, AVANI K 372.14 OTHER CHRONIC ALLERGIC CONJUNCTIVITIS 02/05/2009 ABILIO LUNAS, KASHIF Lawrence 372.14 OTHER CHRONIC ALLERGIC CONJUNCTIVITIS 02/05/2009 LUCY BLANKENSHIP, SILAS N 372.14 OTHER CHRONIC ALLERGIC CONJUNCTIVITIS 02/05/2009 SUMMER SWITCHBOARD INSPECTOR, JEVON A 372.14 OTHER CHRONIC ALLERGIC CONJUNCTIVITIS 02/05/2009 SUMMER SWITCHBOARD INSPECTOR, JEVON A 372.14 OTHER CHRONIC ALLERGIC CONJUNCTIVITIS 02/05/2009 XAVI GÓMEZ MD 372.14 OTHER CHRONIC ALLERGIC CONJUNCTIVITIS 02/05/2009 CAMACHO DO, AVANI K 372.14 OTHER CHRONIC ALLERGIC CONJUNCTIVITIS 02/05/2009 CAMACHO DO, AVANI K 372.14 OTHER CHRONIC ALLERGIC CONJUNCTIVITIS 02/14/2009 SUMMER SWITCHBOARD INSPECTOR, JEVON A 461.9 ACUTE SINUSITIS, UNSPECIFIED 02/14/2009 SUMMER SWITCHBOARD INSPECTOR, JEVON A 461.9 ACUTE SINUSITIS, UNSPECIFIED 02/14/2009 SUMMER SWITCHBOARD INSPECTOR, JEVON A 461.9 ACUTE SINUSITIS, UNSPECIFIED 02/14/2009 JANICE DO AVANI K 461.9 ACUTE SINUSITIS, UNSPECIFIED 02/14/2009 CAMACHO DO AVANI K 461.9 ACUTE SINUSITIS, UNSPECIFIED 02/14/2009 JAYCE REVELES, WADE A 461.9 ACUTE SINUSITIS, UNSPECIFIED 02/14/2009 JAYCE REVELES, WADE A 461.9 ACUTE SINUSITIS, UNSPECIFIED 02/14/2009 SUMMER SWITCHBOARD INSPECTOR, JEVON A 461.9 ACUTE SINUSITIS, UNSPECIFIED 02/14/2009 LUCY BLANKENSHIP, SILAS Lala 461.9 ACUTE SINUSITIS, UNSPECIFIED 02/14/2009 SILAS AYALA MD 461.9 ACUTE SINUSITIS, UNSPECIFIED 02/14/2009 ZULLY SWITCHBOARD INSPECTOR, DEJA S 461.9 ACUTE SINUSITIS, UNSPECIFIED 02/14/2009 CAMACHO DO, AVANI K 461.9 ACUTE SINUSITIS, UNSPECIFIED 02/14/2009 CAMACHO DO, AVANI K 461.9 ACUTE SINUSITIS, UNSPECIFIED 02/14/2009 SUMMER SWITCHBOARD INSPECTOR, JEVON A 461.9 ACUTE SINUSITIS, UNSPECIFIED 02/14/2009 SUMMER SWITCHBOARD INSPECTOR, JEVON A 461.9 ACUTE SINUSITIS, UNSPECIFIED 02/14/2009 SUMMER SWITCHBOARD INSPECTOR, JEVON A 461.9 ACUTE SINUSITIS, UNSPECIFIED 02/14/2009 SUMMER SWITCHBOARD INSPECTOR, JEVON A 461.9 ACUTE SINUSITIS, UNSPECIFIED 02/14/2009 CAMACHO DO, AVANI K 461.9 ACUTE SINUSITIS, UNSPECIFIED 02/14/2009 JAYCE REVELES, WADE Briceno 461.9 ACUTE SINUSITIS, UNSPECIFIED 02/14/2009 CAMACHO DO, AVANI K 461.9 ACUTE SINUSITIS, UNSPECIFIED 02/14/2009 ABILIO DDS, KASHIF J 461.9 ACUTE SINUSITIS, UNSPECIFIED 02/14/2009 LUCY BLANKENSHIP, SILAS Lala 461.9 ACUTE SINUSITIS, UNSPECIFIED 02/14/2009 SUMMER SWITCHBOARD INSPECTOR, JEVON A 461.9 ACUTE SINUSITIS, UNSPECIFIED 02/14/2009 SUMMER SWITCHBOARD INSPECTOR, JEVON A 461.9 ACUTE SINUSITIS, UNSPECIFIED 02/14/2009 RICO BLANKENSHIP, XAVI Lawrence 461.9 ACUTE SINUSITIS, UNSPECIFIED 02/14/2009 CAMACHO DO, AVANI K 461.9 ACUTE SINUSITIS, UNSPECIFIED 02/14/2009 CAMACHO DO, AVANI K 461.9 ACUTE SINUSITIS, UNSPECIFIED 11/21/2009 SUMMER SWITCHBOARD INSPECTOR, JEVON A 354.2 LESION OF ULNAR NERVE 11/21/2009 SUMMER SWITCHBOARD INSPECTOR, JEVON A 354.2 LESION OF ULNAR NERVE 11/21/2009 SUMMER SWITCHBOARD INSPECTOR, JEVON A 354.2 LESION OF ULNAR NERVE [...] DO 354.2 LESION OF ULNAR NERVE 11/21/2009 WADE EDUARDO PHD 354.2 LESION OF ULNAR NERVE 11/21/2009 AVANI CAMACHO DO 354.2 LESION OF ULNAR NERVE 11/21/2009 KASHIF [...] Ot 599.0 11/24/2010 Ot 789.00 06/11/2011 SUMMER SWITCHBOARD INSPECTOR, JEVON A 008.8 GASTROENTERITIS, VIRAL 06/11/2011 SUMMER SWITCHBOARD INSPECTOR, JEVON A 008.8 GASTROENTERITIS, VIRAL 06/11/2011 SUMMER SWITCHBOARD INSPECTOR, JEVON A 008.8 GASTROENTERITIS, VIRAL 06/11/2011 CAMACHO DO, AVANI K 008.8 GASTROENTERITIS, VIRAL 06/11/2011 CAMACHO DO, AVANI K 008.8 GASTROENTERITIS, VIRAL 06/11/2011 JAYCE PHD, WADE A 008.8 GASTROENTERITIS, VIRAL 06/11/2011 JAYCE REVELES, WADE A 008.8 GASTROENTERITIS, VIRAL 06/11/2011 SUMMER SWITCHBOARD INSPECTOR, JEVON A 008.8 GASTROENTERITIS, VIRAL 06/11/2011 LUCY BLANKENSHIP, SILAS Lala 008.8 GASTROENTERITIS, VIRAL 06/11/2011 LUCY BLANKENSHIP, SILAS Lala 008.8 GASTROENTERITIS, VIRAL 06/11/2011 DEJA ANDREA APRN 008.8 GASTROENTERITIS, VIRAL 06/11/2011 CAMACHO DO AVANI K 008.8 GASTROENTERITIS, VIRAL 06/11/2011 CAMACHO DO AVANI K 008.8 GASTROENTERITIS, VIRAL 06/11/2011 SUMMER SWITCHBOARD INSPECTOR, JEVON A 008.8 GASTROENTERITIS, VIRAL 06/11/2011 SUMMER SWITCHBOARD INSPECTOR, JEVON A 008.8 GASTROENTERITIS, VIRAL 06/11/2011 SUMMER SWITCHBOARD INSPECTOR, JEVON A 008.8 GASTROENTERITIS, VIRAL 06/11/2011 SUMMER SWITCHBOARD INSPECTOR, JEVON A 008.8 GASTROENTERITIS, VIRAL 06/11/2011 CAMACHO ELAINE HEALYA K 008.8 GASTROENTERITIS, VIRAL 06/11/2011 JAYCE REVELES, WADE A 008.8 GASTROENTERITIS, VIRAL 06/11/2011 CAMACHO DO AVANI K 008.8 GASTROENTERITIS, VIRAL 06/11/2011 ABILIO LUNAS, KASHIF Lawrence 008.8 GASTROENTERITIS, VIRAL 06/11/2011 LUCY BLANKENSHIP, SILAS Lala 008.8 GASTROENTERITIS, VIRAL 06/11/2011 JEVON WHEELER APRN A 008.8 GASTROENTERITIS, VIRAL 06/11/2011 JEVON WHEELER APRN A 008.8 GASTROENTERITIS, VIRAL 06/11/2011 XAVI GÓMEZ MD 008.8 GASTROENTERITIS, VIRAL 06/11/2011 JANICE HEALYAVANI 008.8 GASTROENTERITIS, VIRAL 06/11/2011 JANICE HEALYAVANI 008.8 [...] WHEELER APRN V72.42 TEST POSITIVE RESULT 01/13/2013 SILAS AYALA MD V72.42 TEST POSITIVE RESULT 01/13/2013 LUCY BLANKENSHIP, SILAS Lala V72.42 TEST POSITIVE RESULT 01/13/2013 DEJA ANDREA APRN S V72.42 TEST POSITIVE RESULT 01/13/2013 CAMACHO DO, AVANI K V72.42 TEST POSITIVE RESULT 01/13/2013 CAMACHO DO, AVANI K V72.42 TEST POSITIVE RESULT 01/13/2013 SUMMER SWITCHBOARD INSPECTOR, JEVON A V72.42 TEST POSITIVE RESULT 01/13/2013 SUMMER SWITCHBOARD INSPECTOR, JEVON A V72.42 TEST POSITIVE RESULT 01/13/2013 SUMMER SWITCHBOARD INSPECTOR, JEVON A V72.42 TEST POSITIVE RESULT 01/13/2013 SUMMER SWITCHBOARD INSPECTOR, JEVON A V72.42 TEST POSITIVE RESULT 01/13/2013 CAMACHO DO, AVANI K V72.42 TEST POSITIVE RESULT 01/13/2013 WADE EDUARDO PHD V72.42 TEST POSITIVE RESULT 01/13/2013 CAMACHO DO, AVANI K V72.42 TEST POSITIVE RESULT 01/13/2013 ABILIO LUNAS, KASHIF J V72.42 TEST POSITIVE RESULT 01/13/2013 SILAS AYALA MD V72.42 TEST POSITIVE RESULT 01/13/2013 SUMMER SWITCHBOARD INSPECTOR, JEVON A V72.42 TEST POSITIVE RESULT 01/13/2013 SUMMER SWITCHBOARD INSPECTOR, JEVON A V72.42 TEST POSITIVE RESULT 01/13/2013 [...] EDUARDO PHD 632 , MISSED 01/26/2013 SUMMER LONGORIAN, JEVON A 632 , MISSED 01/26/2013 LUCY BLANKENSHIP, SILAS Lala 632 , MISSED 01/26/2013 SILAS AYALA MD 632 , MISSED 01/26/2013 ZULLY SWITCHBOARD INSPECTORHENRYDJEA Magdi 632 , MISSED 01/26/2013 CAMACHO DO, AVANI K 632 , MISSED 01/26/2013 CAMACHO DO, AVANI K 632 , MISSED 01/26/2013 SUMMER SWITCHBOARD INSPECTOR, JEVON A 632 , MISSED 01/26/2013 SUMEMR SWITCHBOARD INSPECTOR, JEVON A 632 , MISSED 01/26/2013 SUMMER SWITCHBOARD INSPECTOR, JEVON A 632 , MISSED 01/26/2013 SUMMER SWITCHBOARD INSPECTOR, JEVON A 632 , MISSED 01/26/2013 CAMACHO DO, AVANI K 632 , MISSED 01/26/2013 JAYCE REVELES, WADE Briceno 632 , MISSED 01/26/2013 CAMACHO DO, AVANI K 632 , MISSED 01/26/2013 ABILIO LUNAS, KASHIF J 632 , MISSED 01/26/2013 SILAS AYALA MD 632 , MISSED 01/26/2013 SUMMER SWITCHBOARD INSPECTOR, JEVON A 632 , MISSED 01/26/2013 SUMMER SWITCHBOARD INSPECTOR, JEVON A 632 , MISSED 01/26/2013 RICO [...] WADE EDUARDO PHD 634.91 INCOMPLETE (SAB) 02/02/2013 JEVON WHEELER APRN A 634.91 INCOMPLETE (SAB) 02/02/2013 SILAS AYALA MD 634.91 INCOMPLETE (SAB) 02/02/2013 LUCY MD, SILAS N 634.91 INCOMPLETE (SAB) 02/02/2013 DEJA ANDREA APRN 634.91 INCOMPLETE (SAB) 02/02/2013 AVANI CAMACHO DO K 634.91 INCOMPLETE (SAB) 02/02/2013 ELAINE CAMACHO DOA K 634.91 INCOMPLETE (SAB) 02/02/2013 SUMMER APRN, JEVON A 634.91 INCOMPLETE (SAB) 02/02/2013 SUMMERCRISTI NAVA, JEVON A 634.91 INCOMPLETE (SAB) 02/02/2013 SUMMERCRISTI NAVA, JEVON A 634.91 INCOMPLETE (SAB) 02/02/2013 SUMMER NAVA, JEVON [...] ELAINE CAMACHO DOA K 634.91 INCOMPLETE (SAB) 02/03/2013 WADE EDUARDO [...] MD N 309.81 AN PTSD 02/03/2013 ZULLY SWITCHBOARD INSPECTOR, DEJA S 296.32 MO DEPRESSIVE RECURRENT MODERATE 02/03/2013 ZULLY LONGORIAN, DEJA S 309.81 AN PTSD 02/03/2013 CAMACHO DO AVANI K 296.32 MO DEPRESSIVE RECURRENT MODERATE 02/03/2013 CAMACHO DO AVANI K 309.81 AN PTSD 02/03/2013 CAMACHO DO AVANI K 296.32 MO DEPRESSIVE RECURRENT MODERATE 02/03/2013 CAMACHO DO AVANI K 309.81 AN PTSD 02/03/2013 SUMMER SWITCHBOARD INSPECTOR, JEVON A 296.32 MO DEPRESSIVE RECURRENT MODERATE 02/03/2013 SUMMER SWITCHBOARD INSPECTOR, JEVON A 309.81 AN PTSD 02/03/2013 SUMMER SWITCHBOARD INSPECTOR, JEVON A 296.32 MO DEPRESSIVE RECURRENT MODERATE 02/03/2013 SUMMER SWITCHBOARD INSPECTOR, JEVON A 309.81 AN PTSD 02/03/2013 SUMMER SWITCHBOARD INSPECTOR, JEVON A 296.32 MO DEPRESSIVE RECURRENT MODERATE 02/03/2013 SUMMER SWITCHBOARD INSPECTOR, JEVON A 309.81 AN PTSD 02/03/2013 SUMMER SWITCHBOARD INSPECTOR, JEVON A 296.32 MO DEPRESSIVE RECURRENT MODERATE 02/03/2013 SUMMER SWITCHBOARD INSPECTOR, JEVON A 309.81 AN PTSD 02/03/2013 JANICE HEALY AVANI K 296.32 MO DEPRESSIVE RECURRENT MODERATE 02/03/2013 JANICE HEALY AVANI K 309.81 AN PTSD 02/03/2013 JAYCE REVELES, WADE A 296.32 MO DEPRESSIVE RECURRENT MODERATE 02/03/2013 JAYCE REVELES, WADE A 309.81 AN PTSD 02/03/2013 JANICE HEALY AVANI K 296.32 MO DEPRESSIVE RECURRENT MODERATE 02/03/2013 JANICE HEALY AVANI K 309.81 AN PTSD 02/03/2013 WHITE DDS, KASHIF J 296.32 MO DEPRESSIVE RECURRENT MODERATE 02/03/2013 WHITE DDS, KASHIF J 309.81 AN PTSD 02/03/2013 SILAS AYALA MD N 296.32 MO DEPRESSIVE RECURRENT MODERATE 02/03/2013 SILAS AYALA MD N 309.81 AN PTSD 02/03/2013 SUMMER SWITCHBOARD INSPECTOR, JEVON A 296.32 MO DEPRESSIVE RECURRENT MODERATE 02/03/2013 SUMMER SWITCHBOARD INSPECTOR, JEVON A 309.81 AN PTSD 02/03/2013 SUMMER SWITCHBOARD INSPECTOR, JEVON A 296.32 MO DEPRESSIVE RECURRENT MODERATE 02/03/2013 SUMMER SWITCHBOARD INSPECTOR, JEVON A 309.81 AN PTSD 02/03/2013 XAVI GÓMEZ MD 296.32 MO DEPRESSIVE RECURRENT MODERATE 02/03/2013 XAVI GÓMEZ MD 309.81 AN PTSD 02/03/2013 CAMACHO DO, AVANI K 296.32 MO DEPRESSIVE RECURRENT MODERATE 02/03/2013 CAMACHO DO AVANI K 309.81 AN PTSD 02/03/2013 CAMACHO DO AVANI K 296.32 MO DEPRESSIVE RECURRENT MODERATE 02/03/2013 CAMACHO DO AVANI K 309.81 AN PTSD 02/25/2013 SILAS AYALA MD N 698.9 UNSPECIFIED PRURITIC DISORDER 02/25/2013 SILAS AYALA MD 698.9 UNSPECIFIED PRURITIC DISORDER 02/25/2013 ZULLY NAVA DEJA S 698.9 UNSPECIFIED PRURITIC DISORDER 02/25/2013 CAMACHO DO AVANI K 698.9 UNSPECIFIED PRURITIC DISORDER 02/25/2013 CAMACHO DO, AVANI K 698.9 UNSPECIFIED PRURITIC DISORDER 02/25/2013 SUMMER SWITCHBOARD INSPECTOR, JEVON A 698.9 UNSPECIFIED PRURITIC DISORDER 02/25/2013 SUMMER SWITCHBOARD INSPECTOR, JEVON A 698.9 UNSPECIFIED PRURITIC DISORDER 02/25/2013 SUMMER SWITCHBOARD INSPECTOR, JEVON A 698.9 UNSPECIFIED PRURITIC DISORDER 02/25/2013 SUMMER SWITCHBOARD INSPECTOR, JEVON A 698.9 UNSPECIFIED PRURITIC DISORDER 02/25/2013 CAMACHO DO, AVANI K 698.9 UNSPECIFIED PRURITIC DISORDER 02/25/2013 JAYCE REVELES, WADE A 698.9 UNSPECIFIED PRURITIC DISORDER 02/25/2013 CAMACHO DO, AVANI K 698.9 UNSPECIFIED PRURITIC DISORDER 02/25/2013 ABILIO LUNAS, KASHIF J 698.9 UNSPECIFIED PRURITIC DISORDER 02/25/2013 SILAS AYALA MD N 698.9 UNSPECIFIED PRURITIC DISORDER 02/25/2013 SUMMER SWITCHBOARD INSPECTOR, JEVON A 698.9 UNSPECIFIED PRURITIC DISORDER 02/25/2013 SUMMER SWITCHBOARD INSPECTOR, JEVON A 698.9 UNSPECIFIED PRURITIC DISORDER 02/25/2013 [...] A 354.0 CARPAL TUNNEL SYNDROME 05/06/2013 SUMMER LONGORIAN, JEVON A 354.0 CARPAL TUNNEL SYNDROME 05/06/2013 CAMACHO DO, AVANI K 354.0 CARPAL TUNNEL SYNDROME 05/06/2013 JAYCE PHD, WADE A 354.0 CARPAL TUNNEL SYNDROME 05/06/2013 CAMACHO DO, AVANI K 354.0 CARPAL TUNNEL SYNDROME 05/06/2013 ABILIO DDS, KASHIF Lawrence 354.0 CARPAL TUNNEL SYNDROME 05/06/2013 LUCY BLANKENSHIP, SILAS Lala 354.0 CARPAL TUNNEL SYNDROME 05/06/2013 SUMMERCRISTI NAVA, JEVON A 354.0 CARPAL TUNNEL SYNDROME 05/06/2013 SUMMERCRISTI NAVA, JEVON A 354.0 CARPAL TUNNEL SYNDROME 05/06/2013 XAVI GÓMEZ MD 354.0 CARPAL TUNNEL SYNDROME 05/06/2013 CAMACHO DO AVANI K 354.0 CARPAL TUNNEL SYNDROME 05/06/2013 CAMACHO DO, AVANI K 354.0 CARPAL TUNNEL SYNDROME 05/07/2013 QI BLANKENSHIP, TANISHA Coates Ot 682.4 CELLULITIS OF HAND 05/07/2013 TANISHA BUSBY MD Ot 729.5 PAIN IN LIMB 06/01/2013 CAMACHO DO, AVANI K 493.10 INTRINSIC ASTHMA UNSPECIFIED 06/01/2013 CAMACHO DO, AVANI K 782.3 EDEMA 06/01/2013 CAMACHO DO, AVANI K V22.2 STATE INCIDENTAL 06/01/2013 CAMACHO DO, AVANI K 493.10 INTRINSIC ASTHMA UNSPECIFIED 06/01/2013 CAMACHO DO, AVANI K 782.3 EDEMA 06/01/2013 CAMACHO DO, AVANI K V22.2 STATE INCIDENTAL 06/01/2013 SUMMER SWITCHBOARD INSPECTOR, JEVON A 493.10 INTRINSIC ASTHMA UNSPECIFIED 06/01/2013 SUMMER SWITCHBOARD INSPECTOR, JEVON A 782.3 EDEMA 06/01/2013 SUMMER SWITCHBOARD INSPECTOR, JEVON A V22.2 STATE INCIDENTAL 06/01/2013 SUMMER SWITCHBOARD INSPECTOR, JEVON A 493.10 INTRINSIC ASTHMA UNSPECIFIED 06/01/2013 SUMMER SWITCHBOARD INSPECTOR, JEVON A 782.3 EDEMA 06/01/2013 SUMMER SWITCHBOARD INSPECTOR, JEVON A V22.2 STATE INCIDENTAL 06/01/2013 SUMMER SWITCHBOARD INSPECTOR, JEVON A 493.10 INTRINSIC ASTHMA UNSPECIFIED 06/01/2013 SUMMER SWITCHBOARD INSPECTOR, JEVON A 782.3 EDEMA 06/01/2013 SUMMER SWITCHBOARD INSPECTOR, JEVON A V22.2 STATE INCIDENTAL 06/01/2013 SUMMER SWITCHBOARD INSPECTOR, JEVON A 493.10 INTRINSIC ASTHMA UNSPECIFIED 06/01/2013 SUMMER SWITCHBOARD INSPECTOR, JEVON A 782.3 EDEMA 06/01/2013 SUMMER SWITCHBOARD INSPECTOR, JEVON A V22.2 STATE INCIDENTAL 06/01/2013 CAMACHO DO, AVANI K 493.10 INTRINSIC ASTHMA UNSPECIFIED 06/01/2013 CAMACHO DO, AVANI K 782.3 EDEMA 06/01/2013 CAMACHO DO, AVANI K V22.2 STATE INCIDENTAL 06/01/2013 JAYCE REVELSE, WADE Briceno 493.10 INTRINSIC ASTHMA UNSPECIFIED 06/01/2013 [...] TIM WHEELER APRNIDI A 782.3 EDEMA 06/01/2013 SUMMER NAVA JEVON A V22.2 STATE INCIDENTAL 06/01/2013 XAVI GÓMEZ MD 493.10 INTRINSIC ASTHMA UNSPECIFIED 06/01/2013 XAVI GÓMEZ MD 782.3 EDEMA 06/01/2013 XAVI GÓMEZ MD V22.2 STATE INCIDENTAL 06/01/2013 CAMACHO DO, AVANI K 493.10 INTRINSIC ASTHMA UNSPECIFIED 06/01/2013 CAMACHO DO, AVANI K 782.3 EDEMA 06/01/2013 CAMACHO DO, AVANI K V22.2 STATE INCIDENTAL 06/01/2013 CAMACHO , AVANI K 493.10 INTRINSIC ASTHMA UNSPECIFIED 06/01/2013 [...] SUMMER NAVA JEVON A 654.20 PREVIOUS 06/29/2013 TMI WHEELER APRNIDI A 787.02 NAUSEA ALONE 06/29/2013 [...] CAMACHO DO V23.9 , HIGH-RISK (UNSPEC) 06/29/2013 KASHIF KNOX [...] UNSPECIFIED TO EPISODE OF CARE 06/29/2013 SUMMER SWITCHBOARD INSPECTORJEVON Lala 649.00 COMPL OF - TOBACCO USE 06/29/2013 SUMMER SWITCHBOARD INSPECTORJEVON Lala 654.20 PREVIOUS 06/29/2013 SUMMER SWITCHBOARD INSPECTORJEVON Lala 787.02 NAUSEA ALONE 06/29/2013 SUMMER SWITCHBOARD INSPECTORJEVON Lala V12.21 PERSONAL HISTORY OF GESTATIONAL DIABETES 06/29/2013 SUMMER SWITCHBOARD INSPECTORJEVON Lala V23.9 , HIGH-RISK (UNSPEC) 06/29/2013 XAVI [...] 06/29/2013 AVANI CAMACHO DO 654.20 PREVIOUS 06/29/2013 VAANI CAMACHO DO 787.02 NAUSEA ALONE 06/29/2013 AVANI [...] WHEELER APRN A V73.81 HPV SCREENING 07/27/2013 TIM WHEELER APRNIDI A V74.5 STD SCREEN 07/27/2013 SUMMERCRISTI NAVA JEVON A V76.2 CERVICAL CANCER SCREENING (PAP SMEAR) 07/27/2013 JEVON WHEELER APRN A V73.81 HPV SCREENING 07/27/2013 TIM WHEELER APRNIDI A V74.5 STD SCREEN 07/27/2013 JEVON [...] NAVA JEVON A V74.5 STD SCREEN 07/27/2013 JEVON WHEELER APRN V76.2 CERVICAL CANCER SCREENING (PAP SMEAR) 07/27/2013 [...] DELIVRY W/ OR W/O MENT ANT 12/22/2013 JAME BENITEZ DO Ot 660.01 OBSTRUC/FET MALPOS-DELIV 12/22/2013 JAME BENITEZ DO Ot V06.1 [id number], COMBINED [ 12/22/2013 JAME BENITEZ DO Ot V27.0 DELIVER-SINGLE LIVEBORN 02/18/2014 JEVON WHEELER SWITCHBOARD INSPECTOR Ot V72.42 02/18/2014 SUMMERJEVON Lala SWITCHBOARD INSPECTOR Ot V28.81 02/19/2014 SANDY BLANKENSHIP, NAY Driscoll Ot 041.49 OTHER AND UNSPECIFIED ESCHERICHIA COLI [ 02/19/2014 SANDY BLANKENSHIP, NAY Driscoll Ot 296.20 DEPRESS DISORDER-UNSPEC 02/19/2014 SANDY BLANKENSHIP, NAY Driscoll Ot 305.1 TOBACCO USE DISORDER 02/19/2014 SANDY BLANKENSHIP, NAY Driscoll Ot 305.70 AMPHETAMINE ABUSE-UNSPEC 02/19/2014 NAY DELGADO MD Ot 309.81 POSTTRAUMATIC STRESS DISORDER 02/19/2014 SANDY BLANKENSHIP, NAY Driscoll Ot 590.10 AC PYELONEPHRITIS NOS 02/19/2014 NAY DELGADO MD Ot 041.49 02/19/2014 NAY DELGADO MD Ot 296.20 02/19/2014 SANDY BLANKENSHIP, NAY Driscoll Ot 305.1 02/19/2014 NAY DELGADO MD Ot [...] W/O PSYCHOTIC BEHAVIOR 03/24/2014 JEVON WHEELER APRN 296.33 MO DEPRESSIVE RECURRENT SEVERE W/O PSYCHOTIC [...] AYALA MD V72.42 TEST POSITIVE RESULT 04/05/2014 JEVON WHEELER APRN A V72.42 TEST POSITIVE RESULT 04/05/2014 SUMMER NAVA JEVON A V72.42 TEST POSITIVE RESULT 04/05/2014 [...] CAMACHO DO 493.00 EXTRINSIC ASTHMA UNSPECIFIED 04/19/2014 JEVON WHEELER A SWITCHBOARD INSPECTOR Ot V72.42 04/19/2014 SUMMER JEVON A SWITCHBOARD INSPECTOR Ot V28.81 05/05/2014 TIM WHEELER APRNIDI A V23.41 , HIGH RISK W/ HX OF PRE-TERM LABOR 05/05/2014 JEVON WHEELER APRN V23.41 , HIGH RISK W/ HX OF [...] GÓMEZ MD Ot V28.89 09/24/2014 XAVI GÓMEZ MD, Ot 648.93 OTH CURR COND-ANTEPARTUM 09/24/2014 XAVI GÓMEZ MD Ot 789.00 ABDOMINAL PAIN, UNSPECIFIED SITE 09/25/2014 AVANI CAMACHO DO Ot 648.93 OTH CURR COND-ANTEPARTUM 09/25/2014 AVANI CAMACHO DO Ot 787.02 NAUSEA ALONE 09/25/2014 AVANI CAMACHO DO Ot 789.00 ABDOMINAL PAIN, UNSPECIFIED SITE 09/28/2014 XAVI GÓMEZ MD Ot 655.73 DECR MOVEMNT ANTEPARTUM CONDITION 10/02/2014 XAVI GÓMEZ MD Ot 648.83 10/04/2014 JEVON WHEELER APRN Ot V72.42 10/04/2014 JEVON WHEELER APRN Ot V28.81 10/04/2014 SILAS AYALA MD Ot V22.1 10/04/2014 XAVI GÓMEZ MD Ot V28.89 10/04/2014 XAVI GÓMEZ MD Ot 648.83 10/17/2014 XAVI GÓMEZ MD Ot 621.8 DISORDERS OF UTERUS NEC 10/17/2014 XAVI GÓMEZ MD Ot 648.93 OTH CURR COND-ANTEPARTUM 10/18/2014 XAVI GÓMEZ MD Ot 648.93 10/18/2014 XAVI GÓMEZ MD Ot 789.01 10/18/2014 XAVI GÓMEZ MD, Ot V23.41 11/04/2014 XAVI GÓMEZ MD Ot 621.8 DISORDERS OF UTERUS NEC 11/04/2014 XAVI GÓMEZ MD Ot 648.93 OTH CURR COND-ANTEPARTUM 11/04/2014 XAVI GÓMEZ MD Ot 654.23 PREV DELIVERY, ANTEPARTUM COND 11/06/2014 SUMMERTIMJEVON A SWITCHBOARD INSPECTOR Ot V72.42 11/06/2014 SUMMER JEVON A SWITCHBOARD INSPECTOR Ot V28.81 11/06/2014 SILAS AYALA MD Ot [...] MULTIPARITY-DELIV 11/07/2014 XAVI GÓMEZ MD Ot V06.1 [id number], COMBINED [ 11/07/2014 XAVI GÓMEZ MD Ot [...] GÓMEZ MD Ot 654.21 12/01/2014 XAVI GÓMEZ MD, Ot 656.61 12/01/2014 XAVI GÓMEZ MD Ot [...] SUPERVIS OTH NORMAL PREG 07/31/2016 XAVI GÓMEZ MD Ot V28.89 OTHER SPECIFIED SCREENING 07/31/2016 XAVI GÓMEZ MD Ot 648.83 ABN GLUCOSE-ANTEPARTUM 07/31/2016 XAVI GÓMEZ MD, Ot 648.93 OTH CURR COND-ANTEPARTUM 07/31/2016 XAVI GÓMEZ MD Ot 789.01 ABDOMINAL PAIN, RIGHT UPPER QUADRANT 07/31/2016 RICO MD, XAVI J Ot V23.41 PREG W HISTORY OF PRE-TERM LABOR 10/02/2016 KEISHA SU Ot E11.649 TYPE 2 DIABETES MELLITUS WITH HYPOGLYCEM 10/02/2016 KEISHA SU Ot F17.210 NICOTINE DEPENDENCE, CIGARETTES, UNCOMPL 10/02/2016 KEISHA SU Ot F32.9 MAJOR DEPRESSIVE DISORDER, SINGLE EPISOD 10/02/2016 KEISHA SU Ot F41.9 ANXIETY DISORDER, UNSPECIFIED 10/02/2016 KEISHA SU Ot F43.10 POST-TRAUMATIC STRESS DISORDER, UNSPECIF 10/02/2016 KEISHA SU Ot J45.909 UNSPECIFIED ASTHMA, UNCOMPLICATED 10/02/2016 KEISHA SU Ot M54.16 RADICULOPATHY, LUMBAR REGION 10/02/2016 KEISHA SU Ot M54.5 LOW BACK PAIN 10/02/2016 KIESHA SU Ot Z85.41 PERSONAL HISTORY OF MALIGNANT NEOPLASM O 10/04/2016 JEVON WHEELER APRN Ot V72.42 EXAMINATION OR TEST, POSITIVE 10/04/2016 JEVON WHEELER APRN Ot V28.81 ENCOUNTER FOR ANATOMIC SURVEY 10/04/2016 SILAS AYALA MD Ot V22.1 SUPERVIS OTH NORMAL PREG 10/04/2016 XAVI GÓMEZ MD Ot V28.89 OTHER SPECIFIED SCREENING 10/04/2016 XAVI GÓMEZ MD Ot 648.83 ABN GLUCOSE-ANTEPARTUM 10/04/2016 XAVI GÓMEZ MD Ot 648.93 OTH CURR COND-ANTEPARTUM 10/04/2016 XAVI GÓMEZ MD Ot 789.01 ABDOMINAL PAIN, RIGHT UPPER QUADRANT 10/04/2016 XAVI GÓMEZ MD Ot V23.41 PREG W HISTORY OF PRE-TERM LABOR 11/18/2016 JEVON WHEELER APRN Ot V72.42 EXAMINATION OR TEST, POSITIVE 11/18/2016 JEVON WHEELER APRN Ot V28.81 ENCOUNTER FOR ANATOMIC SURVEY 11/18/2016 SILAS AYALA MD Ot V22.1 SUPERVIS OTH NORMAL PREG 11/18/2016 XAVI GÓMEZ MD Ot V28.89 OTHER SPECIFIED SCREENING 11/18/2016 XAVI GÓMEZ MD Ot 648.83 ABN GLUCOSE-ANTEPARTUM 11/18/2016 XAVI GÓMEZ MD Ot 648.93 OTH CURR COND-ANTEPARTUM 11/18/2016 XAVI GÓMEZ MD Ot 789.01 ABDOMINAL PAIN, RIGHT UPPER QUADRANT 11/18/2016 XAVI GÓMEZ MD Ot V23.41 PREG W HISTORY OF PRE-TERM LABOR 11/19/2016 MARILEE ESALS MD Ot E11.9 TYPE 2 DIABETES MELLITUS WITHOUT COMPLIC 11/19/2016 MARILEE SEALS MD Ot F17.210 NICOTINE DEPENDENCE, CIGARETTES, UNCOMPL 11/19/2016 MARILEE SEALS MD Ot F32.9 MAJOR DEPRESSIVE DISORDER, SINGLE EPISOD 11/19/2016 MARILEE SEALS MD Ot F41.9 ANXIETY DISORDER, UNSPECIFIED 11/19/2016 MARILEE SEALS MD Ot F43.10 POST-TRAUMATIC STRESS DISORDER, UNSPECIF 11/19/2016 MARILEE SEALS MD Ot H60.91 UNSPECIFIED OTITIS EXTERNA, RIGHT EAR 11/19/2016 MARILEE SEALS MD Ot H65.91 UNSPECIFIED NONSUPPURATIVE OTITIS MEDIA, 11/19/2016 MARILEE SEALS MD Ot H92.01 OTALGIA, RIGHT EAR 11/19/2016 MARILEE SEALS MD Ot J45.909 UNSPECIFIED ASTHMA, UNCOMPLICATED 11/19/2016 MARILEE SEALS MD Ot K21.9 GASTRO-ESOPHAGEAL REFLUX DISEASE WITHOUT 11/19/2016 MARILEE SEALS MD Ot Z82.49 FAMILY HX OF ISCHEM HEART DIS AND OTH DI 11/19/2016 MARILEE SEALS MD Ot Z86.19 PERSONAL HISTORY OF OTHER INFECTIOUS AND 11/19/2016 MARILEE SEALS MD Ot Z87.440 PERSONAL HISTORY OF URINARY (TRACT) INFE 11/19/2016 MARILEE SEALS MD Ot Z87.59 PERSONAL HISTORY OF COMP OF PREG, CHLDBR Procedures Code Description [place] [address] URINE TEST (IN-HOUSE) 01/13/2013 69630 US OB - EARLY <14 WEEKS 01/13/2013 91232 ROUTINE VENIPUNCTURE 01/21/2013 47266 HCG QUANTITATIVE 01/21/2013 17527 ROUTINE VENIPUNCTURE 01/23/2013 67601 HCG QUANTITATIVE 01/23/2013 81788 ROUTINE VENIPUNCTURE 01/26/2013 72472 HCG QUANTITATIVE 01/26/2013 69934 ROUTINE VENIPUNCTURE 01/28/2013 83596 HCG QUANTITATIVE 01/28/2013 64110 PSYCH DIAGNOSTIC EVALUATION 02/04/2013 69664 ROUTINE VENIPUNCTURE 02/09/2013 19936 PSYTX PT&/FAMILY 45 MINUTES 02/09/2013 70501 HCG QUANTITATIVE 02/09/2013 32185 ROUTINE VENIPUNCTURE 02/25/2013 65590 CMP 02/25/2013 24671 CBC 02/25/2013 08630 PSYTX PT&/FAMILY 45 MINUTES 02/25/2013 99969 TEST, URINE (IN-HOUSE) 06/01/2013 ELLEN BOYD 06/22/2013 15831 ROUTINE VENIPUNCTURE 06/29/2013 40221 UA OB DIP 2013 91542 URINE DRUG SCREEN (IN-HOUSE) 06/29/2013 53158 SYPHILLIS-[facility] 06/29/2013 37389 HIV ([facility]) 06/29/2013 35491 ANTIBODY SCREEN (order) 06/29/2013 00697 HEP B SURFACE ANTIGEN ([facility]) 06/29/2013 26371 CBC 06/29/2013 06128 A1C ([facility]) 2013 58874 TSH 06/29/2013 4539262 ANTIBODY SCREEN (RESULT ONLY) 06/30/2013 99766 BLOOD TYPE/Rh FACTOR 06/30/2013 88874 RUBELLA ANTIBODY, IGG 06/30/2013 51820 CULTURE URINE 61031 UA W/ CULTURE IF INDICATED 07/20/2013 06748 US OB - EARLY <14 WEEKS 07/27/2013 75588 GC/CHLAM PROBE ([facility]) 07/27/2013 64302 PAP SMEAR 2013 Q0091 PAP SMEAR OBTAIN SMEAR 07/27/2013 78126 UA OB DIP 2013 92264 TRICHOMONAS (IN-HOUSE) 07/27/2013 33802 CULTURE UROGENITAL 07/28/2013 74.1 LOW CERVICAL 12/21/2013 85597 PSYCH DIAGNOSTIC EVALUATION 03/25/2014 66630 PSYCHO TESTING 1 HR W COMP 04/05/2014 61092 TEST, URINE (IN-HOUSE) 04/05/2014 88973 US OB - EARLY <14 WEEKS 04/14/2014 57884 CULTURE URINE 10/2014 97775 UA LONG DIP 04/14 28069 THERAPUTIC INJ SQ/IM 07/14/2014 20320 UA OB DIP 2014 93573 THERAPUTIC INJ SQ/IM 07/20/2014 24496 THERAPUTIC INJ SQ/IM 07/20/2014 96573 US OB - COMPLETE >14 WEEKS 07/21/2014 [id number] THERAPUTIC INJ SQ/IM 07/28/2014 74.1 LOW CERVICAL 11/06/2014 Results Encounters ACCT No. Visit Date/Time Discharge Status Pt. Type Provider Facility Loc./Unit Complaint [id number] 07/28/2014 11:51:00 07/28/2014 23: 59:59 CLS Outpatient AVANI CAMACHO DO [id number] 07/20/2014 14:01:00 07/20/2014 23: 59:59 CLS Outpatient AVANI CAMACHO DO [id number] 07/14/2014 14:09:00 07/14/2014 23: 59:59 CLS Outpatient XAVI GÓMEZ MD [id number] 06/17/2014 11:03:00 06/17/2014 23: 59:59 CLS Outpatient JEVON WHEELER APRN [id number] 05/05/2014 17:09:00 05/05/2014 23: 59:59 CLS Outpatient JEVON WHEELER APRN [id number] 04/14/2014 08:39:00 04/14/2014 23: 59:59 CLS Outpatient LUCY BLANKENSHIP, SILAS Lala [id number] 04/06/2014 14:54:00 04/06/2014 23: 59:59 CLS Outpatient KASHIF KNOX DDS [id number] 04/05/2014 13:17:00 04/05/2014 23: 59:59 CLS Outpatient AVANI CAMACHO DO [id number] 03/24/2014 10:50:00 03/24/2014 23: 59:59 CLS Outpatient WADE EDUARDO PHD [id number] 08/13/2013 13:33:00 08/13/2013 23: 59:59 CLS Outpatient AVANI CAMACHO DO [id number] 07/27/2013 13:51:00 07/27/2013 23: 59:59 CLS Outpatient JEVON WHEELER APRN [id number] 07/20/2013 15:55:00 07/20/2013 23: 59:59 CLS Outpatient JEVON WHEELER APRN [id number] 07/20/2013 15:55:00 07/20/2013 23: 59:59 CLS Outpatient JEVON WHEELER APRN [id number] 06/29/2013 10:16:00 06/29/2013 23: 59:59 CLS Outpatient JEVON WHEELER APRN [id number] 06/22/2013 10:14:00 06/22/2013 23: 59:59 CLS Outpatient AVANI CAMACHO DO [id number] 06/01/2013 16:37:00 06/01/2013 23: 59:59 CLS Outpatient AAVNI CAMACHO DO [id number] 05/06/2013 13:06:00 05/06/2013 23: 59:59 CLS Outpatient DEJA ANDREA APRN Magdi [id number] 02/25/2013 11:51:00 02/25/2013 23: 59:59 CLS Outpatient SILAS AYALA MD [id number] 02/25/2013 11:51:00 02/25/2013 23: 59:59 CLS Outpatient SILAS AYALA MD [id number] 02/09/2013 10:43:00 02/09/2013 23: 59:59 CLS Outpatient JEVON WHEELER APRN Kaity [id number] 02/06/2013 14:03:00 02/06/2013 23: 59:59 CLS Outpatient WADE EDUARDO PHD [id number] 02/03/2013 08:09:00 02/03/2013 23: 59:59 CLS Outpatient WADE EDUARDO PHD [id number] 01/28/2013 09:49:00 01/28/2013 23: 59:59 CLS Outpatient AVANI CAMACHO DO [id number] 01/26/2013 10:22:00 01/26/2013 23: 59:59 CLS Outpatient AVANI CAMACHO DO [id number] 01/23/2013 10:13:00 01/23/2013 23: 59:59 CLS Outpatient JEVON WHEELER APRN Kaity [id number] 01/21/2013 10:14:00 01/21/2013 23: 59:59 CLS Outpatient JEVON WHEELER APRN [id number] 01/13/2013 11:15:00 01/13/2013 23: 59:59 CLS Outpatient JEVON WHEELER APRN [id number] 12/01/2016 18:30:00 2016 19:08:00 DIS Emergency MARILEE SEALS MD [facility] ER R EAR PAIN [id number] 11/18/2016 23:35:00 2016 00:44:00 DIS Emergency MARILEE SEALS MD [facility] ER HEAD EAR PAIN [id number] 10/02/2016 12:10:00 2016 13:16:00 DIS Emergency KEISHA SU [facility] ER BACK PAIN [id number] 07/30/2016 18:17:00 2016 19:52:00 DIS Emergency SUKUMAR SHEPARD MD [facility] ER L HAND LACERATION [id number] 11/05/2014 20:46:00 2014 14:45:00 DIS Inpatient XAVI GÓMEZ MD [facility] LDRP CTXS [id number] 11/04/2014 15:59:00 2014 16:40:00 DIS Outpatient XAVI GÓMEZ MD [facility] WSo LOWER ABD PAIN [id number] 10/17/2014 14:05:00 2014 15:37:00 DIS Outpatient XAVI GÓMEZ MD [facility] WSo CONTRACTIONS,NAUSEA [id number] 10/04/2014 08:08:00 2014 23:59:59 CLS Outpatient XAVI GÓMEZ MD [facility] RAD RUQ PAIN,HIGH RISK RREGNANCY DUE TO HX OF [id number] 09/28/2014 14:02:00 2014 18:10:00 DIS Outpatient XAVI GÓMEZ MD [facility] WSo ABD PRESSURE;DECREASED MOVEMENT [id number] 09/25/2014 19:57:00 2014 22:00:00 DIS Outpatient CAMACHO AVANI Coates [facility] WSo ABD PAIN,NAUSEA [id number] 09/24/2014 18:23:00 2014 23:00:00 DIS Outpatient XAVI GÓMEZ MD [facility] WSo CRAMPING FOR 4 DAYS [id number] 09/20/2014 10:31:00 2014 23:59:59 CLS Outpatient XAVI GÓMEZ MD [facility] LAB ABN GLUCOSE TOLERANCE IN [id number] 07/20/2014 12:23:00 2014 23:59:59 CLS Outpatient XAVI GÓMEZ MD [facility] RAD SURVEY [id number] 04/19/2014 11:21:00 2014 23:59:59 CLS Outpatient SILAS AYALA MD [facility] RAD DATING, UNKNOWN LMP [id number] 04/12/2014 13:18:00 2014 15:54:00 DIS Emergency KEISHA SU [facility] ER COUGH/CHEST CONGESTION [id number] 02/18/2014 11:48:00 2013 16:30:00 DIS Inpatient NAY DELGADO MD [facility] 4TH PYELONEPHRITIS [id number] 12/21/2013 14:55:00 2013 20:45:00 DIS Inpatient JAME BENITEZ DO [facility] LDRP LABOR [id number] 09/30/2013 12:28:00 2013 15:20:00 DIS Outpatient LILIANA HUFFMAN DO S [facility] WSo PRESSURE [id number] 08/06/2013 10:04:00 2013 23:59:59 CLS Outpatient JEVON WHEELER APRN [facility] RAD DATING [id number] 07/26/2013 07:13:00 2013 08:05:00 DIS Emergency TANISHA BUSBY MD [facility] ER L EAR PAIN [id number] 07/19/2013 16:47:00 2013 20:14:00 DIS Emergency SUKUMAR SHEPARD MD [facility] ER CRAMPS; 11 WKS [id number] 07/03/2013 22:41:00 2013 23:58:00 DIS Emergency AGA LUGO MD [facility] ER VOMITING, 10 WKS PREG [id number] 06/21/2013 17:15:00 2013 21:09:00 DIS Emergency SUKUMAR SHEPARD MD [facility] ER CRAMPING [id number] 05/07/2013 11:38:00 2013 15:35:00 DIS Emergency TANISHA BUSBY MD [facility] ER LEFT HAND PAIN/SWELLING [id number] 01/31/2013 11:14:00 2012 15:00:00 DIS Emergency SUKUMAR SHEPARD MD [facility] ER 8 WKS; SPOTTING [id number] 01/19/2013 10:12:00 2012 23:59:59 CLS Outpatient JEVON WHEELER SWITCHBOARD INSPECTOR [facility] RAD DATING [id number] 12/23/2012 15:52:00 2012 18:35:00 DIS Emergency JOSÉ MANUEL COCHRAN SWITCHBOARD INSPECTOR [facility] ER NAUSEA/VOMITTING [id number] 12/09/2012 15:13:00 2012 16:15:00 DIS Emergency JOSÉ MANUEL COCHRAN SWITCHBOARD INSPECTOR [facility] ER R EAR PAIN [id number] 09/21/2012 09:20:00 2012 13:28:00 DIS Emergency TANISHA BUSBY MD [facility] ER ABD CRAMPING BACK PAIN POSSIBLE [id number] 08/07/2012 14:32:00 2012 23:59:59 CLS Outpatient [id number] 04/27/2012 09:03:00 Document Registration [id number] 12/24/2011 09:44:00 Document Registration [id number] 09/28/2011 09:23:00 Document Registration [id number] 09/02/2011 09:52:00 Document Registration [id number] 07/21/2011 09:47:00 Document Registration [id number] 11/24/2010 17:43:00 Document Registration [id number] 10/21/2010 01:54:00 Document Registration [id number] 06/10/2010 12:24:00 Document Registration [id number] 06/04/2010 03:27:00 Document Registration
== END 2016-12-01 19:08 | disposition home or self-care (01) ==
LOC: EDUNIT# 18:29 → ER 18:30
DX: H60.91 Unspecified otitis externa, right ear (principal); K21.9 Gastro-esophageal reflux disease without esophagitis; F41.9 Anxiety disorder, unspecified; F43.10 Post-traumatic stress disorder, unspecified; F32.9 Major depressive disorder, single episode, unspecified; F60.9 Personality disorder, unspecified; J45.909 Unspecified asthma, uncomplicated; F12.90 Cannabis use, unspecified, uncomplicated; F15.90 Other stimulant use, unspecified, uncomplicated; F17.210 Nicotine dependence, cigarettes, uncomplicated; Z85.41 Personal history of malignant neoplasm of cervix uteri; Z87.440 Personal history of urinary (tract) infections; Z96.22 Myringotomy tube(s) status; Z87.59 Personal history of other complications of pregnancy, childbirth and the puerperium; Z98.890 Other specified postprocedural states; Z80.0 Family history of malignant neoplasm of digestive organs
CPT/HCPCS: 99284

== ENCOUNTER 2016-12-09 10:35 | Emergency (ER) | payer SELFPAY ==
[~2016-12-09] VITALS: Ht 157.5 cm; Wt 86.2 kg
--- OUTSIDE RECORDS SUMMARY | 2016-12-09 10:39 | XMS REPORT | Continuity of Care Document ---
Author Author [employer] Organization [facility] Address Unknown Phone Unavailable Care Team Providers Care Bag End Sewer Name Role Phone [employer] Unavailable Unavailable Problems Medications Allergies, Adverse Reactions, Alerts Immunizations Results Vital Signs Vital Sign Value Date Comments Source Systolic Blood Pressure Cuff Monitored <content ID=' [id number]'>118</content>/<content ID='[id number]'>74</content> mm[Hg ] 12/31/2013 [facility] Temperature Route Oral
</br>(12/31/2013 16:54:00) <sup> </sup> 12/31/2013 [facility] Temperature Celsius 36.7 Kerry 12/31/2013 [facility] Heart Rate 74 bpm 12/31/2013 [facility] Respiratory Rate 18 BR/min [facility] Heart Rate 92 bpm 12/25/2013 [facility] Respiratory Rate 18 BR/min [facility] Encounters Location Location Details Encounter Type Encounter Number Reason For Visit Attending Provider ADM Date DC Date Status Source [facility] Non Billable [id number] 12/25/2013 12/25/2013 [facility] CLI [id number] Incision Check Rex Prasad 12/25/2013 12/25/2013 Active [facility] CLI [id number] Incision Check Berry Eli 12/31/2013 12/31/2013 [facility] Procedures Plan of Care Social History Assessment and Plan Family History Value Date Source Advance Directives Order Name Results Value Date Source
--- OUTSIDE RECORDS SUMMARY | 2016-12-09 10:40 | XMS REPORT ---
Author Author RHYS SERRA [facility] Address [address] [place] [address] Care Team Providers Care Lap Checker Name Role Phone RHYS SERRA Unavailable PROBLEMS Type Condition ICD9-CM Code IMR11-YA Code Onset Dates Condition Status SNOMED Code Problem H/O intrinsic asthma Z87.09 Active 461567976 Problem Asthma, extrinsic J45.909 Active 597777481 Problem Screening for diabetes mellitus Z13.1 Active 864668357 Problem Major depressive disorder, recurrent severe without psychotic features F33.2 Active 276146778226 Problem Other specified intestinal infections A08.8 Active 248703226 Problem H/O carpal tunnel syndrome Z86.69 Active 007459213 Problem Carpal tunnel syndrome, right upper limb G56.01 Active 76865446 Problem Carpal tunnel syndrome, left upper limb G56.02 Active 06505574 Problem History of gestational diabetes Z86.32 Active 357870249 Problem Previous section Z98.89 Active 822170555 Problem Edema, unspecified R60.9 Active 531133770 Problem PTSD (post-traumatic stress disorder) F43.10 Active 15138373 ALLERGIES Substance Reaction Event Type Date Status Cromolyn Sodium eye swelling Drug Allergy Apr, Active SOCIAL HISTORY No smoking Hx information available PLAN OF CARE VITAL SIGNS MEDICATIONS Unknown Medications RESULTS No Results PROCEDURES No Known procedures IMMUNIZATIONS No Known Immunizations
[2016-12-09] MEDS ORDERED: LIDOCAINE 2% 20 ML (XYLOCAINE) VIAL ONE (11:21)
[2016-12-09] MEDS ORDERED: LIDOCAINE 2% 20 ML (XYLOCAINE) VIAL INJ ONE (11:30)
--- NOTE | 2016-12-09 11:44 | ED Upper Extremity ---
General Chief Complaint: Laceration Stated Complaint: L HAND THUMB LAC Nursing Triage Note: ADM TO ED WITH LACERATION TO L THUMB REPORTS CUT ON BOX KNIFE. Nursing Sepsis Screen: No Definite Risk Source: patient Exam Limitations: no limitations History of Present Illness Time seen by provider: 11:41 Initial Comments To ER with laceration to the volar side of the left thumb from a box knife while cutting boxes at home. She has had a tetanus shot within the past 4 years Onset: just prior to arrival Severity: moderate Pain/Injury Location: left thumb Modifying Factors: Worse With Movement Allergies and Home Medications Allergies Coded Allergies: Dihydroxyacetone (Verified Allergy, Unknown, 09/30/13) Shellfish (Unverified Allergy, Unknown, 09/30/13) Uncoded Allergies: BEES (Allergy, Unknown, 09/30/13) SEAFOOD (Allergy, Unknown, 09/30/13) Home Medications Amoxicillin 500 Mg Capsule, 500 MG PO TID for 10 Days, #30 Ref 0 Prescribed by: MARILEE SEALS on 12/01/161851 Fluticasone Propionate 9.9 Ml [place].susp, 2 PUFF NS BID for 14 Days, #1 Ref 0 Prescribed by: MARILEE SEALS on 11/19/16 0036 Neomycin/Polymyxin B Sulf/Hc 10 Ml Drops.susp, 2 DROPS OT TID for 10 Days, #1 Ref 0 Prescribed by: MARILEE SEALS on 11/19/16 0036 Prednisone 20 Mg Tab, 20 MG PO DAILY for 6 Days, #6 Ref 0 Prescribed by: MARILEE SEALS on 12/01/161851 Constitutional: see HPI EENTM: see HPI Respiratory: no symptoms reported Cardiovascular: no symptoms reported Genitourinary: no symptoms reported Musculoskeletal: see HPI Skin: no symptoms reported Psychiatric/Neurological: No Symptoms Reported Past Sorxkgv-Ttjlfk-Nzuqos Hx Patient Social History Alcohol Use: Denies Use Recreational 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) Smoking Status: Current Everyday Smoker Type Used: Cigarettes 2nd Hand Smoke Exposure: Yes Recent Foreign Travel: No Contact w/Someone Who Travel: No Recent Infectious Disease Expo: No Recent Hopitalizations: No Immunizations Up To Date Tetanus Booster (TDap): Less than 5yrs PED Vaccines UTD: No Seasonal Allergies Seasonal Allergies: Yes Surgeries History of Surgeries: Yes (TUBES IN EARS, CERVICAL, C SECTION TIMES4) Surgeries: Section Respiratory History of Respiratory Disorde: Yes Respiratory Disorders: Asthma Cardiovascular History of Cardiac Disorders: No Neurological History of Neurological Disord: Yes (MINI SEIZURES) Reproductive System Hx Reproductive Disorders: Yes (CERVICAL SURG) 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 Reproductive Disorders: Denies Genitourinary Genitourinary Disorders: UTI-Chronic Gastrointestinal History of Gastrointestinal Di: Yes Gastrointestinal Disorders: Gastroesophageal Reflux, Ulcer Musculoskeletal History of Musculoskeletal Dis: No Endocrine History of Endocrine Disorders: Yes ("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, Non-Insulin dep HEENT Loss of Vision: Denies Hearing Impairment: Denies Cancer History of Cancer: Yes Cancer: Cervical Psychosocial History of Psychiatric Problem: Yes Behavioral Health Disorders: Anxiety, PTSD, Personality Disorder, Depression Integumentary History of Skin or Integumenta: Yes (SHINGLES) Skin/Integumentary Disorders: Recent Skin Changes Blood Transfusions History of Blood Disorders: Yes (ANEMIA) Adverse Reaction to a Blood Tr: No Family Medical History Significant Family History: No Pertinent Family Hx Family Medial History: Alcoholism 19 MOTHER Cardiovascular disease 19 MOTHER Colon cancer Completed stroke 19 FATHER Drug abuse 19 MOTHER Myocardial infarction 19 FATHER (FATHER, [place] ) OVERDOSE MOM No Family History of: AIDS Abdominal aortic aneurysm Saurav's disease Alzheimer's disease Aphasia Arthritis Asthma Cancer of mouth Cataracts Congenital disease Congenital heart disease Coronary thrombosis Cystic fibrosis Deafness or hearing loss Dementia Diabetes mellitus Dysphasia Fibrocystic disease of breast Gastroenteritis Glaucoma Headache disorder Hypercholesterolemia Hypertension Kidney disease Neoplasm Not obtainable due to adoption Osteoporosis Parkinson's disease Prostate cancer Psychosocial problem Respiratory disorder Seizure disorder Severe allergy Thyroid disease Tuberculosis Visual disorder Physical Exam Vital Signs Vital Sign - Last 12Hours 12/09/16 11:14 Temp 97.1 Pulse 110 Resp 18 B/P (MAP) 126/86 Pulse Ox 99 O2 Delivery Room Air Capillary Refill : Less Than 3 Seconds General Appearance: WD/WN, no apparent distress HEENT: PERRL/EOMI, normal ENT inspection Neck: non-tender, full range of motion Respiratory: normal breath sounds, no respiratory distress, no accessory muscle use Gastrointestinal: normal bowel sounds, non tender, soft Wrist: Yes non-tender Hand: Left, laceration (1 cm laceration to the volar side of the base of the left thumb. She maintains flexion ability.) Neurologic/Psychiatric: alert, normal mood/affect, oriented x 3 Skin: normal color, warm/dry Laceration Repair : Wound Location: Upper Extremities Wound Length (cm): 1 Wound's Depth, Shape: linear Wound Explored: clean Anesthesia: 1% Lidocaine Volume Anesthetic (ccs): 1 Suture: Ethlion Suture Size: 5-0 Number of Sutures: 5 Layer Closure?: 1 Number Deep Layer Sutures: 0 Progress Anesthetized with 1 mL of 2 percent lidocaine without epinephrine. Wound then scrubbed with chlorhexidine/saline solution and irrigated with the same. Wound then closed with 5 simple interrupted sutures size 5-0 Ethilon. Progress/Results/Core Measures Results/Orders My Orders Orders - JOSÉ MANUEL COCHRAN APRN Lidocaine 2% Injection 20 Ml (Xylocaine (12/09/16 11:30) Lidocaine 2% Injection 20 Ml (Xylocaine (12/09/16 11:21) Vital Signs/I&O Vital Sign - Last 12Hours 12/09/16 11:14 Temp 97.1 Pulse 110 Resp 18 B/P (MAP) 126/86 Pulse Ox 99 O2 Delivery Room Air Blood Pressure Mean: 99 Departure Communication (Admissions) Progress Notes She is currently on amoxicillin for ear infection she states. Impression Impression: Primary Impression: Finger laceration Disposition: HOME, SELF-CARE Condition: Stable Departure-Patient Inst. Decision time for Depature: 11:43 Referrals: [facility] (PCP/Family) Primary Care Physician Patient Instructions: Laceration Repair With Stitches (DC) Add. Discharge Instructions: 1. Return to ER to have the stitches removed in 10 days which would be next Saturday the . 2. Return to ER before then for any sign of infection such as pus like drainage , fevers, worsening swelling 3. Keep the hand elevated for the rest of today to help with a throbbing and swelling sensation. Tylenol and Motrin for pain 4. You may shower allowing water run over the starting tonight but do not soak it in water such as a hot tub, dish sink, bath tub until stitches have been removed All discharge instructions reviewed with patient and/or family. Voiced understanding. JOSÉ MANUEL COCHRAN APRN Dec 09, 2016 11:44
[2016-12-09 11:51] VITALS: BP 126/86
== END 2016-12-09 11:52 | disposition home or self-care (01) ==
LOC: EDUNIT# 10:35 → ER 10:36
DX: S61.012A Laceration without foreign body of left thumb without damage to nail, initial encounter (principal); F41.9 Anxiety disorder, unspecified; F43.10 Post-traumatic stress disorder, unspecified; F60.9 Personality disorder, unspecified; K21.9 Gastro-esophageal reflux disease without esophagitis; J45.909 Unspecified asthma, uncomplicated; E11.9 Type 2 diabetes mellitus without complications; F17.210 Nicotine dependence, cigarettes, uncomplicated; Z96.22 Myringotomy tube(s) status; Z87.59 Personal history of other complications of pregnancy, childbirth and the puerperium; Z87.11 Personal history of peptic ulcer disease; Z87.2 Personal history of diseases of the skin and subcutaneous tissue; Z82.49 Family history of ischemic heart disease and other diseases of the circulatory system; Z80.0 Family history of malignant neoplasm of digestive organs; W26.0XXA Contact with knife, initial encounter; Y92.001 Dining room of unspecified non-institutional (private) residence as the place of occurrence of the external cause
CPT/HCPCS: 12011

== ENCOUNTER 2016-12-20 15:40 | Emergency (ER) | payer SELFPAY ==
[~2016-12-20] VITALS: Ht 157.5 cm; Wt 86.2 kg
--- OUTSIDE RECORDS SUMMARY | 2016-12-20 15:47 | XMS REPORT | Continuity of Care Document ---
Author Author [employer] Organization [facility] Address Unknown Phone Unavailable Care Team Providers Care Glue Drier Operator Name Role Phone [employer] Unavailable Unavailable Problems Medications Allergies, Adverse Reactions, Alerts Immunizations Results Vital Signs Vital Sign Value Date Comments Source Systolic Blood Pressure Cuff Monitored <content ID=' [id number]'>118</content>/<content ID='[id number]'>74</content> mm[Hg ] 12/31/2013 [facility] Temperature Route Oral
</br>(12/31/2013 16:54:00) <sup> </sup> 12/31/2013 [facility] Temperature Celsius 36.7 Kerry 12/31/2013 [facility] Heart Rate 74 bpm 12/31/2013 [facility] Respiratory Rate 18 BR/min [facility] Heart Rate 92 bpm 12/25/2013 [facility] Respiratory Rate 18 BR/min [facility] Encounters Location Location Details Encounter Type Encounter Number Reason For Visit Attending Provider ADM Date DC Date Status Source [facility] Non Billable [id number] 12/25/2013 12/25/2013 [facility] CLI [id number] Incision Check Rex Prasad 12/25/2013 12/25/2013 Active [facility] CLI [id number] Incision Check Berry Eli 12/31/2013 12/31/2013 [facility] Procedures Plan of Care Social History Assessment and Plan Family History Value Date Source Advance Directives Order Name Results Value Date Source
[2016-12-20 16:06] VITALS: BP 123/64
== END 2016-12-20 16:06 | disposition home or self-care (01) ==
LOC: EDUNIT# 15:40 → ER 15:41
DX: S61.012D Laceration without foreign body of left thumb without damage to nail, subsequent encounter (principal); F17.210 Nicotine dependence, cigarettes, uncomplicated; X58.XXXD Exposure to other specified factors, subsequent encounter

== ENCOUNTER 2017-01-03 14:02 | Emergency (ER) | payer SELFPAY ==
[~2017-01-03] VITALS: Ht 157.5 cm; Wt 88.5 kg
--- OUTSIDE RECORDS SUMMARY | 2017-01-03 14:08 | XMS REPORT | Continuity of Care Document ---
Author Author [employer] Organization [facility] Address Unknown Phone Unavailable Care Team Providers Care Manager Group Name Role Phone [employer] Unavailable Unavailable Problems Medications Allergies, Adverse Reactions, Alerts Immunizations Results Vital Signs Vital Sign Value Date Comments Source Systolic Blood Pressure Cuff Monitored <content ID=' [id number]'>118</content>/<content ID='[id number]'>74</content> mm[Hg ] 12/31/2013 [facility] Temperature Route Oral
</br>(12/31/2013 16:54:00) <sup> </sup> 12/31/2013 [facility] Temperature Celsius 36.7 Kerry 12/31/2013 [facility] Heart Rate 74 bpm 12/31/2013 [facility] Respiratory Rate 18 BR/min [facility] Heart Rate 92 bpm 12/25/2013 [facility] Respiratory Rate 18 BR/min [facility] Encounters Location Location Details Encounter Type Encounter Number Reason For Visit Attending Provider ADM Date DC Date Status Source [facility] Non Billable [id number] 12/25/2013 12/25/2013 [facility] CLI [id number] Incision Check Rex Prasad 12/25/2013 12/25/2013 Active [facility] CLI [id number] Incision Check Berry Eli 12/31/2013 12/31/2013 [facility] Procedures Plan of Care Social History Assessment and Plan Family History Value Date Source Advance Directives Order Name Results Value Date Source
--- OUTSIDE RECORDS SUMMARY | 2017-01-03 14:13 | XMS REPORT | Continuity of Care Document ---
Author Author [facility] Ctr of [facility] Address Unknown Phone Unavailable Allergies Active Description Code Type Severity Reaction Onset Reported/Identified Relationship to Patient Clinical Status Yes Cromolyn Drug Allergy N/A N/A 02/17/2009 Yes BEES BEES Unknown N/A 09/30/2013 Yes Dihydroxyacetone [id number] Drug Allergy Unknown N/A 09/30/2013 Yes SEAFOOD SEAFOOD Unknown N/A 09/30/2013 Yes Shellfish [id number] Drug Allergy Unknown N/A 09/30/2013 Medications Problems [...] 372.14 OTHER CHRONIC ALLERGIC CONJUNCTIVITIS 02/05/2009 SUMMER HAND III CUTTER, JEVON A 372.14 OTHER CHRONIC ALLERGIC CONJUNCTIVITIS 02/05/2009 SUMMER HAND III CUTTER, JEVON A 372.14 OTHER CHRONIC ALLERGIC CONJUNCTIVITIS 02/05/2009 SUMMER HAND III CUTTER, JEVON A 372.14 OTHER CHRONIC ALLERGIC CONJUNCTIVITIS 02/05/2009 CAMACHO DO, AVANI K 372.14 OTHER CHRONIC ALLERGIC CONJUNCTIVITIS 02/05/2009 JAYCE REVELES, WADE Briceno 372.14 OTHER CHRONIC ALLERGIC CONJUNCTIVITIS 02/05/2009 CAMACHO DO, AVANI K 372.14 OTHER CHRONIC ALLERGIC CONJUNCTIVITIS 02/05/2009 ABILIO LUNAS, KASHIF Lawrence 372.14 OTHER CHRONIC ALLERGIC CONJUNCTIVITIS 02/05/2009 LUCY BLANKENSHIP, SILAS N 372.14 OTHER CHRONIC ALLERGIC CONJUNCTIVITIS 02/05/2009 SUMMER HAND III CUTTER, JEVON A 372.14 OTHER CHRONIC ALLERGIC CONJUNCTIVITIS 02/05/2009 SUMMER HAND III CUTTER, JEVON A 372.14 OTHER CHRONIC ALLERGIC CONJUNCTIVITIS 02/05/2009 XAVI GÓMEZ MD 372.14 OTHER CHRONIC ALLERGIC CONJUNCTIVITIS 02/05/2009 CAMACHO DO, AVANI K 372.14 OTHER CHRONIC ALLERGIC CONJUNCTIVITIS 02/05/2009 CAMACHO DO, AVANI K 372.14 OTHER CHRONIC ALLERGIC CONJUNCTIVITIS 02/14/2009 SUMMER HAND III CUTTER, JEVON A 461.9 ACUTE SINUSITIS, UNSPECIFIED 02/14/2009 SUMMER HAND III CUTTER, JEVON A 461.9 ACUTE SINUSITIS, UNSPECIFIED 02/14/2009 SUMMER HAND III CUTTER, JEVON A 461.9 ACUTE SINUSITIS, UNSPECIFIED 02/14/2009 JANICE DO AVANI K 461.9 ACUTE SINUSITIS, UNSPECIFIED 02/14/2009 CAMACHO DO AVANI K 461.9 ACUTE SINUSITIS, UNSPECIFIED 02/14/2009 JAYCE REVELES, WADE A 461.9 ACUTE SINUSITIS, UNSPECIFIED 02/14/2009 JAYCE REVELES, WADE A 461.9 ACUTE SINUSITIS, UNSPECIFIED 02/14/2009 SUMMER HAND III CUTTER, JEVON A 461.9 ACUTE SINUSITIS, UNSPECIFIED 02/14/2009 LUCY BLANKENSHIP, SILAS Lala 461.9 ACUTE SINUSITIS, UNSPECIFIED 02/14/2009 SILAS AYALA MD 461.9 ACUTE SINUSITIS, UNSPECIFIED 02/14/2009 ZULLY HAND III CUTTER, DEJA S 461.9 ACUTE SINUSITIS, UNSPECIFIED 02/14/2009 CAMACHO DO, AVANI K 461.9 ACUTE SINUSITIS, UNSPECIFIED 02/14/2009 CAMACHO DO, AVANI K 461.9 ACUTE SINUSITIS, UNSPECIFIED 02/14/2009 SUMMER HAND III CUTTER, JEVON A 461.9 ACUTE SINUSITIS, UNSPECIFIED 02/14/2009 SUMMER HAND III CUTTER, JEVON A 461.9 ACUTE SINUSITIS, UNSPECIFIED 02/14/2009 SUMMER HAND III CUTTER, JEVON A 461.9 ACUTE SINUSITIS, UNSPECIFIED 02/14/2009 SUMMER HAND III CUTTER, JEVON A 461.9 ACUTE SINUSITIS, UNSPECIFIED 02/14/2009 CAMACHO DO, AVANI K 461.9 ACUTE SINUSITIS, UNSPECIFIED 02/14/2009 JAYCE REVELES, WADE Briceno 461.9 ACUTE SINUSITIS, UNSPECIFIED 02/14/2009 CAMACHO DO, AVANI K 461.9 ACUTE SINUSITIS, UNSPECIFIED 02/14/2009 ABILIO DDS, KASHIF J 461.9 ACUTE SINUSITIS, UNSPECIFIED 02/14/2009 LUCY BLANKENSHIP, SILAS Lala 461.9 ACUTE SINUSITIS, UNSPECIFIED 02/14/2009 SUMMER HAND III CUTTER, JEVON A 461.9 ACUTE SINUSITIS, UNSPECIFIED 02/14/2009 SUMMER HAND III CUTTER, JEVON A 461.9 ACUTE SINUSITIS, UNSPECIFIED 02/14/2009 RICO BLANKENSHIP, XAVI Lawrence 461.9 ACUTE SINUSITIS, UNSPECIFIED 02/14/2009 CAMACHO DO, AVANI K 461.9 ACUTE SINUSITIS, UNSPECIFIED 02/14/2009 CAMACHO DO, AVANI K 461.9 ACUTE SINUSITIS, UNSPECIFIED 11/21/2009 SUMMER HAND III CUTTER, JEVON A 354.2 LESION OF ULNAR NERVE 11/21/2009 SUMMER HAND III CUTTER, JEVON A 354.2 LESION OF ULNAR NERVE 11/21/2009 SUMMER HAND III CUTTER, JEVON A 354.2 LESION OF ULNAR NERVE [...] Ot 599.0 11/24/2010 Ot 789.00 06/11/2011 SUMMER HAND III CUTTER, JEVON A 008.8 GASTROENTERITIS, VIRAL 06/11/2011 SUMMER HAND III CUTTER, JEVON A 008.8 GASTROENTERITIS, VIRAL 06/11/2011 SUMMER HAND III CUTTER, JEVON A 008.8 GASTROENTERITIS, VIRAL 06/11/2011 CAMACHO DO, AVANI K 008.8 GASTROENTERITIS, VIRAL 06/11/2011 CAMACHO DO, AVANI K 008.8 GASTROENTERITIS, VIRAL 06/11/2011 JAYCE PHD, WADE A 008.8 GASTROENTERITIS, VIRAL 06/11/2011 JAYCE REVELES, WADE A 008.8 GASTROENTERITIS, VIRAL 06/11/2011 SUMMER HAND III CUTTER, JEVON A 008.8 GASTROENTERITIS, VIRAL 06/11/2011 LUCY BLANKENSHIP, SILAS Lala 008.8 GASTROENTERITIS, VIRAL 06/11/2011 LUCY BLANKENSHIP, SILAS Lala 008.8 GASTROENTERITIS, VIRAL 06/11/2011 DEJA ANDREA APRN 008.8 GASTROENTERITIS, VIRAL 06/11/2011 CAMACHO DO AVANI K 008.8 GASTROENTERITIS, VIRAL 06/11/2011 CAMACHO DO AVANI K 008.8 GASTROENTERITIS, VIRAL 06/11/2011 SUMMER HAND III CUTTER, JEVON A 008.8 GASTROENTERITIS, VIRAL 06/11/2011 SUMMER HAND III CUTTER, JEVON A 008.8 GASTROENTERITIS, VIRAL 06/11/2011 SUMMER HAND III CUTTER, JEVON A 008.8 GASTROENTERITIS, VIRAL 06/11/2011 SUMMER HAND III CUTTER, JEVON A 008.8 GASTROENTERITIS, VIRAL 06/11/2011 CAMACHO [...] K V72.42 TEST POSITIVE RESULT 01/13/2013 SUMMER HAND III CUTTER, JEVON A V72.42 TEST POSITIVE RESULT 01/13/2013 SUMMER HAND III CUTTER, JEVON A V72.42 TEST POSITIVE RESULT 01/13/2013 SUMMER HAND III CUTTER, JEVON A V72.42 TEST POSITIVE RESULT 01/13/2013 SUMMER HAND III CUTTER, JEVON A V72.42 TEST POSITIVE RESULT 01/13/2013 CAMACHO DO, AVANI K V72.42 TEST POSITIVE RESULT 01/13/2013 WADE EDUARDO PHD V72.42 TEST POSITIVE RESULT 01/13/2013 CAMACHO DO, AVANI K V72.42 TEST POSITIVE RESULT 01/13/2013 ABILIO LUNAS, KASHIF J V72.42 TEST POSITIVE RESULT 01/13/2013 SILAS AYALA MD V72.42 TEST POSITIVE RESULT 01/13/2013 SUMMER HAND III CUTTER, JEVON A V72.42 TEST POSITIVE RESULT 01/13/2013 SUMMER HAND III CUTTER, JEVON A V72.42 TEST POSITIVE RESULT 01/13/2013 [...] AYALA MD 632 , MISSED 01/26/2013 ZULLY HAND III CUTTERHENRYDEJA Magdi 632 , MISSED 01/26/2013 CAMACHO DO, AVANI K 632 , MISSED 01/26/2013 CAMACHO DO, AVANI K 632 , MISSED 01/26/2013 SUMMER HAND III CUTTER, JEVON A 632 , MISSED 01/26/2013 SUMMER HAND III CUTTER, JEVON A 632 , MISSED 01/26/2013 SUMMER HAND III CUTTER, JEVON A 632 , MISSED 01/26/2013 SUMMER HAND III CUTTER, JEVON A 632 , MISSED 01/26/2013 CAMACHO DO, AVANI K 632 , MISSED 01/26/2013 JAYCE REVELES, WAED Briceno 632 , MISSED 01/26/2013 CAMACHO DO, AVANI K 632 , MISSED 01/26/2013 ABILIO LUNAS, KASHIF J 632 , MISSED 01/26/2013 SILAS AYALA MD 632 , MISSED 01/26/2013 SUMMER HAND III CUTTER, JEVON A 632 , MISSED 01/26/2013 SUMMER HAND III CUTTER, JEVON A 632 , MISSED 01/26/2013 RICO [...] MD N 309.81 AN PTSD 02/03/2013 ZULLY HAND III CUTTER, EDJA S 296.32 MO DEPRESSIVE RECURRENT MODERATE 02/03/2013 ZULLY LONGORIAN, DEJA S 309.81 AN PTSD 02/03/2013 CAMACHO DO AVANI K 296.32 MO DEPRESSIVE RECURRENT MODERATE 02/03/2013 CAMACHO DO AVANI K 309.81 AN PTSD 02/03/2013 CAMACHO DO AVANI K 296.32 MO DEPRESSIVE RECURRENT MODERATE 02/03/2013 CAMACHO DO AVANI K 309.81 AN PTSD 02/03/2013 SUMMER HAND III CUTTER, JEVON A 296.32 MO DEPRESSIVE RECURRENT MODERATE 02/03/2013 SUMMER HAND III CUTTER, JEVON A 309.81 AN PTSD 02/03/2013 SUMMER HAND III CUTTER, JEVON A 296.32 MO DEPRESSIVE RECURRENT MODERATE 02/03/2013 SUMMER HAND III CUTTER, JEVON A 309.81 AN PTSD 02/03/2013 SUMMER HAND III CUTTER, JEVON A 296.32 MO DEPRESSIVE RECURRENT MODERATE 02/03/2013 SUMMER HAND III CUTTER, JEVON A 309.81 AN PTSD 02/03/2013 SUMMER HAND III CUTTER, JEVON A 296.32 MO DEPRESSIVE RECURRENT MODERATE 02/03/2013 SUMMER HAND III CUTTER, JEVON A 309.81 AN PTSD 02/03/2013 JANICE [...] MD N 309.81 AN PTSD 02/03/2013 SUMMER HAND III CUTTER, JEVON A 296.32 MO DEPRESSIVE RECURRENT MODERATE 02/03/2013 SUMMER HAND III CUTTER, JEVON A 309.81 AN PTSD 02/03/2013 SUMMER HAND III CUTTER, JEVON A 296.32 MO DEPRESSIVE RECURRENT MODERATE 02/03/2013 SUMMER HAND III CUTTER, JEVON A 309.81 AN PTSD 02/03/2013 XAVI [...] K 698.9 UNSPECIFIED PRURITIC DISORDER 02/25/2013 SUMMER HAND III CUTTER, JEOVN A 698.9 UNSPECIFIED PRURITIC DISORDER 02/25/2013 SUMMER HAND III CUTTER, JEVON A 698.9 UNSPECIFIED PRURITIC DISORDER 02/25/2013 SUMMER HAND III CUTTER, JEVON A 698.9 UNSPECIFIED PRURITIC DISORDER 02/25/2013 SUMMER HAND III CUTTER, JEVON A 698.9 UNSPECIFIED PRURITIC DISORDER 02/25/2013 CAMACHO DO, AVANI K 698.9 UNSPECIFIED PRURITIC DISORDER 02/25/2013 JAYCE REVELES, WADE A 698.9 UNSPECIFIED PRURITIC DISORDER 02/25/2013 CAMACHO DO, AVANI K 698.9 UNSPECIFIED PRURITIC DISORDER 02/25/2013 ABILIO LUNAS, KASHIF J 698.9 UNSPECIFIED PRURITIC DISORDER 02/25/2013 SILAS AYALA MD N 698.9 UNSPECIFIED PRURITIC DISORDER 02/25/2013 SUMMER HAND III CUTTER, JEVON A 698.9 UNSPECIFIED PRURITIC DISORDER 02/25/2013 SUMMER HAND III CUTTER, JEVON A 698.9 UNSPECIFIED PRURITIC DISORDER 02/25/2013 [...] AVANI K V22.2 STATE INCIDENTAL 06/01/2013 SUMMER HAND III CUTTER, JVEON A 493.10 INTRINSIC ASTHMA UNSPECIFIED 06/01/2013 SUMMER HAND III CUTTER, JEVON A 782.3 EDEMA 06/01/2013 SUMMER HAND III CUTTER, JEVON A V22.2 STATE INCIDENTAL 06/01/2013 SUMMER HAND III CUTTER, JEVON A 493.10 INTRINSIC ASTHMA UNSPECIFIED 06/01/2013 SUMMER HAND III CUTTER, JEVON A 782.3 EDEMA 06/01/2013 SUMMER HAND III CUTTER, JEVON A V22.2 STATE INCIDENTAL 06/01/2013 SUMMER HAND III CUTTER, JEVON A 493.10 INTRINSIC ASTHMA UNSPECIFIED 06/01/2013 SUMMER HAND III CUTTER, JEVON A 782.3 EDEMA 06/01/2013 SUMMER HAND III CUTTER, JEVON A V22.2 STATE INCIDENTAL 06/01/2013 SUMMER HAND III CUTTER, JEVON A 493.10 INTRINSIC ASTHMA UNSPECIFIED 06/01/2013 SUMMER HAND III CUTTER, JEVON A 782.3 EDEMA 06/01/2013 SUMMER HAND III CUTTER, JEVON A V22.2 STATE INCIDENTAL 06/01/2013 CAMACHO [...] AVANI K 493.10 INTRINSIC ASTHMA UNSPECIFIED 06/01/2013 CMAACHO DO, AVANI K 782.3 EDEMA 06/01/2013 CAMACHO [...] UNSPECIFIED TO EPISODE OF CARE 06/29/2013 SUMMER HAND III CUTTERJEVON Lala 649.00 COMPL OF - TOBACCO USE 06/29/2013 SUMMER HAND III CUTTERJEVON Lala 654.20 PREVIOUS 06/29/2013 SUMMER HAND III CUTTERJEVON Lala 787.02 NAUSEA ALONE 06/29/2013 SUMMER HAND III CUTTERJEVON Lala V12.21 PERSONAL HISTORY OF GESTATIONAL DIABETES 06/29/2013 SUMMER HAND III CUTTERJEVON Lala V23.9 , HIGH-RISK (UNSPEC) 06/29/2013 XAVI [...] V76.2 CERVICAL CANCER SCREENING (PAP SMEAR) 07/27/2013 SILSA AYALA MD V73.81 HPV SCREENING 07/27/2013 SILAS [...] V73.81 HPV SCREENING 07/27/2013 RICO BLANKENSHIP, XAVI aLwrence V74.5 STD SCREEN 07/27/2013 XAVI GÓMEZ MD [...] JAME BENITEZ DO Ot 648.81 ABN GLUCOSE INRU-DELIV 12/22/2013 JAME BENITEZ DO Ot 652.21 BREECH PRESENTAT-DELIVER 12/22/2013 JAME BENITEZ DO Ot 654.21 PREV DELIVRY W/ OR W/O MENT ANT 12/22/2013 JAME BENITEZ DO Ot 660.01 OBSTRUC/FET MALPOS-DELIV 12/22/2013 JAME BENITEZ DO Ot V06.1 [id number], COMBINED [ 12/22/2013 JAME BENITEZ DO Ot V27.0 DELIVER-SINGLE LIVEBORN 02/18/2014 JEVON WHEELER HAND III CUTTER Ot V72.42 02/18/2014 SUMMERJEVON Lala HAND III CUTTER Ot V28.81 02/19/2014 SANDY BLANKENSHIP, NAY Driscoll [...] CAMACHO DO V72.42 TEST POSITIVE RESULT 04/05/2014 AVNAI CAMACHO DO V72.42 TEST POSITIVE RESULT 04/12/2014 [...] EXTRINSIC ASTHMA UNSPECIFIED 04/19/2014 JEVON WHEELER A HAND III CUTTER Ot V72.42 04/19/2014 SUMMER JEVON A HAND III CUTTER Ot V28.81 05/05/2014 TIM WHEELER APRNIDI A [...] XAVI GÓMEZ MD Ot V28.89 10/04/2014 XAVI ÓGMEZ MD Ot 648.83 10/17/2014 XAVI GÓMEZ MD [...] PREV DELIVERY, ANTEPARTUM COND 11/06/2014 SUMMERTIMJEVON A HAND III CUTTER Ot V72.42 11/06/2014 SUMMER JEVON A HAND III CUTTER Ot V28.81 11/06/2014 SILAS AYALA MD Ot [...] MULTIPARITY-DELIV 11/07/2014 XAVI GÓMEZ MD Ot V06.1 [id number], COMBINED [ 11/07/2014 XAVI GÓMEZ MD Ot V27.0 DELIVER-SINGLE LIVEBORN 12/01/2014 XAVI GÓMEZ MD Ot 079.4 12/01/2014 XAVI GÓMEZ MD Ot 285.9 12/01/2014 XAVI GÓMEZ MD Ot 301.9 12/01/2014 XAVI GÓMEZ MD Ot 305.73 12/01/2014 XAVI GÓMEZ MD Ot 309.81 12/01/2014 XAVI GÓMEZ MD Ot 311 12/01/2014 XAVI GÓMEZ MD Ot 493.90 12/01/2014 XAVI GMÓEZ MD Ot 530.81 12/01/2014 XAVI GÓMEZ MD [...] SU Ot M54.5 LOW BACK PAIN 10/02/2016 KEISHA SU Ot Z85.41 PERSONAL HISTORY OF MALIGNANT [...] Ot V72.42 EXAMINATION OR TEST, POSITIVE 11/18/2016 JEOVN WHEELER APRN Ot V28.81 ENCOUNTER FOR ANATOMIC [...] W HISTORY OF PRE-TERM LABOR 11/19/2016 MARILEE SEALS MD Ot E11.9 TYPE 2 DIABETES MELLITUS [...] PERSONAL HISTORY OF COMP OF PREG, CHLDBR 12/01/2016 MARILEE SEALS MD Ot F12.90 CANNABIS USE, UNSPECIFIED, UNCOMPLICATED 12/01/2016 MARILEE SEALS MD Ot F15.90 OTHER STIMULANT USE, UNSPECIFIED, UNCOMP 12/01/2016 MARILEE SEALS MD Ot F17.210 NICOTINE DEPENDENCE, CIGARETTES, UNCOMPL 12/01/2016 MARILEE SEALS MD Ot F32.9 MAJOR DEPRESSIVE DISORDER, SINGLE EPISOD 12/01/2016 MARILEE SEALS MD Ot F41.9 ANXIETY DISORDER, UNSPECIFIED 12/01/2016 MARILEE SEALS MD Ot F43.10 POST-TRAUMATIC STRESS DISORDER, UNSPECIF 12/01/2016 MARILEE SEALS MD Ot F60.9 PERSONALITY DISORDER, UNSPECIFIED 12/01/2016 MARILEE SEALS MD Ot H60.91 UNSPECIFIED OTITIS EXTERNA, RIGHT EAR 12/01/2016 MARILEE SEALS MD Ot H92.01 OTALGIA, RIGHT EAR 12/01/2016 MARILEE SEALS MD Ot J45.909 UNSPECIFIED ASTHMA, UNCOMPLICATED 12/01/2016 MARILEE SEALS MD Ot K21.9 GASTRO-ESOPHAGEAL REFLUX DISEASE WITHOUT 12/01/2016 MARILEE SEALS MD Ot Z80.0 FAMILY HISTORY OF MALIGNANT NEOPLASM OF 12/01/2016 MARILEE SEALS MD Ot Z85.41 PERSONAL HISTORY OF MALIGNANT NEOPLASM O 12/01/2016 MARILEE SEALS MD Ot Z87.440 PERSONAL HISTORY OF URINARY (TRACT) INFE 12/01/2016 MARILEE SEALS MD Ot Z87.59 PERSONAL HISTORY OF COMP OF PREG, CHLDBR 12/01/2016 MARILEE SEALS MD Ot Z96.22 MYRINGOTOMY TUBE(S) STATUS 12/01/2016 MARILEE SEALS MD Ot Z98.890 OTHER SPECIFIED POSTPROCEDURAL STATES 12/02/2016 MARILEE SEALS MD Ot F12.90 CANNABIS USE, UNSPECIFIED, UNCOMPLICATED 12/02/2016 MARILEE SEALS MD Ot F15.90 OTHER STIMULANT USE, UNSPECIFIED, UNCOMP 12/02/2016 MARILEE SEALS MD Ot F17.210 NICOTINE DEPENDENCE, CIGARETTES, UNCOMPL 12/02/2016 MARILEE SEALS MD Ot F32.9 MAJOR DEPRESSIVE DISORDER, SINGLE EPISOD 12/02/2016 MARILEE SEALS MD Ot F41.9 ANXIETY DISORDER, UNSPECIFIED 12/02/2016 MARILEE SEASL MD Ot F43.10 POST-TRAUMATIC STRESS DISORDER, UNSPECIF 12/02/2016 MARILEE SEALS MD Ot F60.9 PERSONALITY DISORDER, UNSPECIFIED 12/02/2016 MARILEE SEALS MD Ot H60.91 UNSPECIFIED OTITIS EXTERNA, RIGHT EAR 12/02/2016 MARILEE SEALS MD Ot H92.01 OTALGIA, RIGHT EAR 12/02/2016 MARILEE SEALS MD Ot J45.909 UNSPECIFIED ASTHMA, UNCOMPLICATED 12/02/2016 MARILEE SEALS MD Ot K21.9 GASTRO-ESOPHAGEAL REFLUX DISEASE WITHOUT 12/02/2016 MARILEE SEALS MD Ot Z80.0 FAMILY HISTORY OF MALIGNANT NEOPLASM OF 12/02/2016 MARILEE SEALS MD Ot Z85.41 PERSONAL HISTORY OF MALIGNANT NEOPLASM O 12/02/2016 MARILEE SEALS MD Ot Z87.440 PERSONAL HISTORY OF URINARY (TRACT) INFE 12/02/2016 MARILEE SEALS MD Ot Z87.59 PERSONAL HISTORY OF COMP OF PREG, CHLDBR 12/02/2016 MARILEE SEALS MD Ot Z96.22 MYRINGOTOMY TUBE(S) STATUS 12/02/2016 MARILEE SEALS MD Ot Z98.890 OTHER SPECIFIED POSTPROCEDURAL STATES 12/09/2016 JOSÉ MANUEL COCHRAN APRN Ot E11.9 TYPE 2 DIABETES MELLITUS WITHOUT COMPLIC 12/09/2016 JOSÉ MANUEL COCHRAN APRN Ot F17.210 NICOTINE DEPENDENCE, CIGARETTES, UNCOMPL 12/09/2016 JOSÉ MANUEL COCHRAN APRN Ot F41.9 ANXIETY DISORDER, UNSPECIFIED 12/09/2016 JOSÉ MANUEL COCHRAN APRN Ot F43.10 POST-TRAUMATIC STRESS DISORDER, UNSPECIF 12/09/2016 JOSÉ MANUEL COCHRAN APRN Ot F60.9 PERSONALITY DISORDER, UNSPECIFIED 12/09/2016 JOSÉ MANUEL COCHRAN APRN Ot J45.909 UNSPECIFIED ASTHMA, UNCOMPLICATED 12/09/2016 JOSÉ MANUEL COCHRAN APRN Ot K21.9 GASTRO-ESOPHAGEAL REFLUX DISEASE WITHOUT 12/09/2016 JOSÉ MANUEL COCHRAN APRN Ot S61.012A LACERATION W/O FB OF LEFT THUMB W/O CHARO 12/09/2016 JOSÉ MANUEL COCHRAN APRN Ot W26.0XXA CONTACT WITH KNIFE, INITIAL ENCOUNTER 12/09/2016 JOSÉ MANUEL COCHRAN APRN Ot Y92.001 DINING ROOM OF [facility] 12/09/2016 JOSÉ MANUEL COCHRAN APRN Ot Z80.0 FAMILY HISTORY OF MALIGNANT NEOPLASM OF 12/09/2016 JOSÉ MANUEL COCHRAN APRN Ot Z82.49 FAMILY HX OF ISCHEM HEART DIS AND OTH DI 12/09/2016 JOSÉ MANUEL COCHRAN APRN Ot Z87.11 PERSONAL HISTORY OF PEPTIC ULCER DISEASE 12/09/2016 JOSÉ MANUEL COCHRAN APRN Ot Z87.2 PERSONAL HISTORY OF DISEASES OF THE SKIN 12/09/2016 JOSÉ MANUEL COCHRAN APRN Ot Z87.59 PERSONAL HISTORY OF COMP OF PREG, CHLDBR 12/09/2016 JOSÉ MANUEL COCHRAN APRN Ot Z96.22 MYRINGOTOMY TUBE(S) STATUS 12/11/2016 JOSÉ MANUEL COCHRAN APRN Ot E11.9 TYPE 2 DIABETES MELLITUS WITHOUT COMPLIC 12/11/2016 JOSÉ MANUEL COCHRAN APRN Ot F17.210 NICOTINE DEPENDENCE, CIGARETTES, UNCOMPL 12/11/2016 JOSÉ MANUEL COCHRAN APRN Ot F41.9 ANXIETY DISORDER, UNSPECIFIED 12/11/2016 JOSÉ MANUEL COCHRAN APRN Ot F43.10 POST-TRAUMATIC STRESS DISORDER, UNSPECIF 12/11/2016 JOSÉ MANUEL COCHRAN APRN Ot F60.9 PERSONALITY DISORDER, UNSPECIFIED 12/11/2016 JOSÉ MANUEL COCHRAN APRN Ot J45.909 UNSPECIFIED ASTHMA, UNCOMPLICATED 12/11/2016 JOSÉ MANUEL COCHRAN APRN Ot K21.9 GASTRO-ESOPHAGEAL REFLUX DISEASE WITHOUT 12/11/2016 JOSÉ MANUEL COCHRAN APRN Ot S61.012A LACERATION W/O FB OF LEFT THUMB W/O CHARO 12/11/2016 JOSÉ MANUEL COCHRAN APRN Ot W26.0XXA CONTACT WITH KNIFE, INITIAL ENCOUNTER 12/11/2016 JOSÉ MANUEL COCHRAN APRN Ot Y92.001 DINING ROOM OF [facility] 12/11/2016 JOSÉ MANUEL COCHRAN APRN Ot Z80.0 FAMILY HISTORY OF MALIGNANT NEOPLASM OF 12/11/2016 JOSÉ MANUEL COCHRAN APRN Ot Z82.49 FAMILY HX OF ISCHEM HEART DIS AND OTH DI 12/11/2016 JOSÉ MANUEL COCHRAN APRN Ot Z87.11 PERSONAL HISTORY OF PEPTIC ULCER DISEASE 12/11/2016 JOSÉ MANUEL COCHRAN APRN Ot Z87.2 PERSONAL HISTORY OF DISEASES OF THE SKIN 12/11/2016 JOSÉ MANUEL COCHRAN APRN Ot Z87.59 PERSONAL HISTORY OF COMP OF PREG, CHLDBR 12/11/2016 JOSÉ MANUEL COCHRAN APRN Ot Z96.22 MYRINGOTOMY TUBE(S) STATUS Procedures Code Description [place] [address] URINE TEST (IN-HOUSE) 01/13/2013 72447 US OB - EARLY <14 WEEKS 01/13/2013 98304 ROUTINE VENIPUNCTURE 01/21/2013 33500 HCG QUANTITATIVE 01/21/2013 96325 ROUTINE VENIPUNCTURE 01/23/2013 20165 HCG QUANTITATIVE 01/23/2013 76222 ROUTINE VENIPUNCTURE 01/26/2013 44254 HCG QUANTITATIVE 01/26/2013 68412 ROUTINE VENIPUNCTURE 01/28/2013 47908 HCG QUANTITATIVE 01/28/2013 56231 PSYCH DIAGNOSTIC EVALUATION 02/04/2013 13748 ROUTINE VENIPUNCTURE 02/09/2013 95832 PSYTX PT&/FAMILY 45 MINUTES 02/09/2013 78685 HCG QUANTITATIVE 02/09/2013 04632 ROUTINE VENIPUNCTURE 02/25/2013 52600 CMP 02/25/2013 02784 CBC 02/25/2013 98911 PSYTX PT&/FAMILY 45 MINUTES 02/25/2013 12260 TEST, URINE (IN-HOUSE) 06/01/2013 ELLEN BOYD 06/22/2013 52292 ROUTINE VENIPUNCTURE 06/29/2013 92455 UA OB DIP 2013 77120 URINE DRUG SCREEN (IN-HOUSE) 06/29/2013 39400 SYPHILLIS-STATE LAB 06/29/2013 15758 HIV (STATE LAB) 06/29/2013 72438 ANTIBODY SCREEN (order) 06/29/2013 98987 HEP B SURFACE ANTIGEN (STATE) 06/29/2013 06149 CBC 06/29/2013 46524 A1C (RML) 2013 99008 TSH 06/29/2013 5750151 ANTIBODY SCREEN (RESULT ONLY) 06/30/2013 03795 BLOOD TYPE/Rh FACTOR 06/30/2013 34270 RUBELLA ANTIBODY, IGG 06/30/2013 27682 CULTURE URINE 57649 UA W/ CULTURE IF INDICATED 07/20/2013 05378 US OB - EARLY <14 WEEKS 07/27/2013 33339 GC/CHLAM PROBE (STATE) 07/27/2013 77519 PAP SMEAR 2013 Q0091 PAP SMEAR OBTAIN SMEAR 07/27/2013 25239 UA OB DIP 2013 65335 TRICHOMONAS (IN-HOUSE) 07/27/2013 48389 CULTURE UROGENITAL 07/28/2013 74.1 LOW CERVICAL 12/21/2013 05774 PSYCH DIAGNOSTIC EVALUATION 03/25/2014 28890 PSYCHO TESTING 1 HR W COMP 04/05/2014 46190 TEST, URINE (IN-HOUSE) 04/05/2014 00179 US OB - EARLY <14 WEEKS 04/14/2014 57017 CULTURE URINE 10/2014 02573 UA LONG DIP 04/14 84508 THERAPUTIC INJ SQ/IM 07/14/2014 16559 UA OB DIP 2014 06034 THERAPUTIC INJ SQ/IM 07/20/2014 05842 THERAPUTIC INJ SQ/IM 07/20/2014 55157 US OB - COMPLETE >14 WEEKS 07/21/2014 84345 THERAPUTIC INJ SQ/IM 07/28/2014 74.1 LOW CERVICAL 11/06/2014 Results Encounters ACCT No. Visit Date/Time Discharge Status Pt. Type Provider Facility Loc./Unit Complaint [id number] 07/28/2014 11:51:00 07/28/2014 23: 59:59 CLS Outpatient AVANI CAMACHO DO [id number] 07/20/2014 14:01:00 07/20/2014 23: 59:59 CLS Outpatient AVANI CAMACHO DO [id number] 07/14/2014 14:09:00 07/14/2014 23: 59:59 CLS Outpatient RICO BLANKENSHIP, XAVI Lawrence [id number] 06/17/2014 11:03:00 06/17/2014 23: 59:59 CLS Outpatient JEVON WHEELER APRN [id number] 05/05/2014 17:09:00 05/05/2014 23: 59:59 CLS Outpatient JEVON WHEELER APRN [id number] 04/14/2014 08:39:00 04/14/2014 23: 59:59 CLS Outpatient LUCY BLANKENSHIP, SILAS Lala [id number] 04/06/2014 14:54:00 04/06/2014 23: 59:59 CLS Outpatient KASHIF KNOX DDS [id number] 04/05/2014 13:17:00 04/05/2014 23: 59:59 CLS Outpatient AVANI CAMACHO DO [id number] 03/24/2014 10:50:00 03/24/2014 23: 59:59 CLS Outpatient WADE EDUARDO PHD [id number] 08/13/2013 13:33:00 08/13/2013 23: 59:59 CLS Outpatient AVANI CAMACHO DO [id number] 07/27/2013 13:51:00 07/27/2013 23: 59:59 CLS Outpatient [facility] JEVON A [id number] 07/20/2013 15:55:00 07/20/2013 23: 59:59 CLS Outpatient SUMMERDai NAVA JEVON A [id number] 07/20/2013 15:55:00 07/20/2013 23: 59:59 CLS Outpatient SUMMERDai NAVA JEVON A [id number] 06/29/2013 10:16:00 06/29/2013 23: 59:59 CLS Outpatient SUMMER APRNJEVON Kaity [id number] 06/22/2013 10:14:00 06/22/2013 23: 59:59 CLS Outpatient AVANI CAMACHO DO [id number] 06/01/2013 16:37:00 06/01/2013 23: 59:59 CLS Outpatient AVANI CAMACHO DO [id number] 05/06/2013 13:06:00 05/06/2013 23: 59:59 CLS Outpatient DEJA ANDREA APRN [id number] 02/25/2013 11:51:00 02/25/2013 23: 59:59 CLS Outpatient SILAS AYALA MD [id number] 02/25/2013 11:51:00 02/25/2013 23: 59:59 CLS Outpatient SILAS AYALA MD [id number] 02/09/2013 10:43:00 02/09/2013 23: 59:59 CLS Outpatient SUMMERJEVON Lala APRN [id number] 02/06/2013 14:03:00 02/06/2013 23: 59:59 CLS Outpatient WADE DEUARDO PHD [id number] 02/03/2013 08:09:00 02/03/2013 23: 59:59 CLS Outpatient WADE EDUARDO PHD [id number] 01/28/2013 09:49:00 01/28/2013 23: 59:59 CLS Outpatient AVANI CAMACHO DO [id number] 01/26/2013 10:22:00 01/26/2013 23: 59:59 CLS Outpatient AVNAI CAMACHO DO [id number] 01/23/2013 10:13:00 01/23/2013 23: 59:59 CLS Outpatient JEVON WHEELER APRN [id number] 01/21/2013 10:14:00 01/21/2013 23: 59:59 CLS Outpatient JEVON WHEELER APRN [id number] 01/13/2013 11:15:00 01/13/2013 23: 59:59 CLS Outpatient JEVON WHEELER APRN [id number] 12/20/2016 15:41:00 2016 16:06:00 DIS Emergency JOSÉ MANUEL COCHRAN APRN [facility] ER SUTURE REMOVAL [id number] 12/09/2016 10:36:00 2016 11:52:00 DIS Emergency JOSÉ MANUEL COCHRAN APRN [facility] ER L HAND THUMB LAC [id number] 12/01/2016 18:30:00 2016 19:08:00 DIS Emergency MARILEE SEALS MD [facility] ER R EAR PAIN [id number] 11/18/2016 23:35:00 2016 00:44:00 DIS Emergency MARILEE SEALS MD [facility] ER HEAD EAR PAIN [id number] 10/02/2016 12:10:00 2016 13:16:00 DIS Emergency KEISHA SU [facility] ER BACK PAIN [id number] 07/30/2016 18:17:00 2016 19:52:00 DIS Emergency SUKUMAR SHEPARD MD [facility] ER L HAND LACERATION [id number] 11/05/2014 20:46:00 2014 14:45:00 DIS Inpatient XAVI GÓMEZ MD [facility] LDRP CTXS [id number] 11/04/2014 15:59:00 2014 16:40:00 DIS Outpatient [facility]Z [facility] LOWER ABD PAIN [id number] 10/17/2014 14:05:00 2014 15:37:00 DIS Outpatient XAVI GÓMEZ MD [facility] WSo CONTRACTIONS,NAUSEA [id number] 10/04/2014 08:08:00 2014 23:59:59 CLS Outpatient XAVI GÓMEZ MD [facility] RAD RUQ PAIN,HIGH RISK RREGNANCY DUE TO HX OF [id number] 09/28/2014 14:02:00 2014 18:10:00 DIS Outpatient XAVI GÓMEZ MD [facility] ABD PRESSURE;DECREASED MOVEMENT [id number] 09/25/2014 19:57:00 2014 22:00:00 DIS Outpatient AVANI CAMACHO DO [facility] ABD PAIN,NAUSEA [id number] 09/24/2014 18:23:00 2014 23:00:00 DIS Outpatient XAVI GÓMEZ MD [facility] WSo CRAMPING FOR 4 DAYS [id number] 09/20/2014 10:31:00 2014 23:59:59 CLS Outpatient XAVI GÓMEZ MD [facility] LAB ABN GLUCOSE TOLERANCE IN [id number] 07/20/2014 12:23:00 2014 23:59:59 CLS Outpatient XAVI GÓMEZ MD [facility] RAD SURVEY [id number] 04/19/2014 11:21:00 2014 23:59:59 CLS Outpatient SILAS AYALA MD [facility] RAD DATING, UNKNOWN LMP [id number] 04/12/2014 13:18:00 2014 15:54:00 DIS Emergency KEISHA SU [facility] ER COUGH/CHEST CONGESTION [id number] 02/18/2014 11:48:00 2013 16:30:00 DIS Inpatient SANDY BLANKENSHIP, NAY Driscoll [facility] 4TH PYELONEPHRITIS [id number] 12/21/2013 14:55:00 2013 20:45:00 DIS Inpatient JAME BENITEZ DO [facility] LDRP LABOR [id number] 09/30/2013 12:28:00 2013 15:20:00 DIS Outpatient LILIANA HUFFMAN DO [facility] WSo PRESSURE [id number] 08/06/2013 10:04:00 2013 23:59:59 CLS Outpatient JEVON WHEELER APRN [facility] RAD DATING [id number] 07/26/2013 07:13:00 2013 08:05:00 DIS Emergency TANISHA BUSBY MD [facility] ER L EAR PAIN [id number] 07/19/2013 16:47:00 2013 20:14:00 DIS Emergency SUKUMAR SHEPARD MD [facility] ER CRAMPS; 11 WKS [id number] 07/03/2013 22:41:00 2013 23:58:00 DIS Emergency AGA LUGO MD [facility] ER VOMITING, 10 WKS PREG [id number] 06/21/2013 17:15:00 2013 21:09:00 DIS Emergency SUKUMAR SHEPARD MD [facility] ER CRAMPING [id number] 05/07/2013 11:38:00 2013 15:35:00 DIS Emergency TANISHA BUSBY MD [facility] ER LEFT HAND PAIN/SWELLING [id number] 01/31/2013 11:14:00 2012 15:00:00 DIS Emergency SUKUMAR SHEPARD MD [facility] ER 8 WKS; SPOTTING [id number] 01/19/2013 10:12:00 2012 23:59:59 CLS Outpatient JEVON WHEELER HAND III CUTTER [facility] RAD DATING [id number] 12/23/2012 15:52:00 2012 18:35:00 DIS Emergency JOSÉ MANUEL COCHRAN HAND III CUTTER [facility] ER NAUSEA/VOMITTING [id number] 12/09/2012 15:13:00 2012 16:15:00 DIS Emergency JOSÉ MANUEL COCHRAN HAND III CUTTER [facility] ER R EAR PAIN [id number] 09/21/2012 09:20:00 2012 13:28:00 DIS Emergency QI BLANKENSHIP, TANISHA Coates [facility] ER ABD CRAMPING BACK PAIN POSSIBLE [id number] 08/07/2012 14:32:00 2012 23:59:59 CLS Outpatient [id number] 04/27/2012 09:03:00 Document Registration [id number] 12/24/2011 09:44:00 Document Registration [id number] 09/28/2011 09:23:00 Document Registration [id number] 09/02/2011 09:52:00 Document Registration [id number] 07/21/2011 09:47:00 Document Registration [id number] 11/24/2010 17:43:00 Document Registration [id number] 10/21/2010 01:54:00 Document Registration [id number] 06/10/2010 12:24:00 Document Registration [id number] 06/04/2010 03:27:00 Document Registration
--- NOTE | 2017-01-03 14:31 | ED Cough/URI ---
General Chief Complaint: Cough/Cold/Flu Symptoms Stated Complaint: 102 FEVER,SOB Nursing Triage Note: C/O cough- green/brown mucous with SOB and CP. fever 99-102. no meds today. sx started 2 days ago Source: patient History of Present Illness Time seen by provider: 14:10 Initial Comments PT ARRIVES VIA POV C/O PRODUCTIVE COUGH X 2 DAYS--GREEN/BROWN SPUTUM C/O SHORTNESS OF BREATH AND STATES IT HURTS TO BREATHE HAS HAD CHILLS AND TEMP UP TO 102 THIS AM--TOOK IBUPROFEN LAST PM, BUT HAS NOT TAKEN ANYTHING FOR FEVER SINCE THEN HAS NOT TAKEN ANYTHING FOR SYMPTOMS OTHERWISE HAD ASTHMA CHILD, BUT NO PROBLEMS FOR YEARS NO KNOWN SICK CONTACTS PCP: [facility] [place] Allergies and Home Medications Allergies Coded Allergies: Shellfish (Unverified Allergy, Unknown, 01/03/17) dihydroxyacetone (Verified Allergy, Unknown, 09/30/13) Uncoded Allergies: BEES (Allergy, Unknown, 09/30/13) SEAFOOD (Allergy, Unknown, 09/30/13) Home Medications Albuterol Sulfate 1 Puff Puff, 2 PUFF IH Q4H, #1 Prescribed by: JAMSHID VERMA on 01/03/17 1546 Benzonatate 100 Mg Capsule, 1-2 TAB PO TID, #30 Prescribed by: JAMSHID VERMA on 01/03/17 1546 Doxycycline Monohydrate 100 Mg Capsule, 100 MG PO BID, #20 Prescribed by: JAMSHID VERMA on 01/03/17 1546 Guaifenesin/Dextromethorphan 1 Each Tbmp.12hr, 1 EACH PO BID for 10 Days, #20 Prescribed by: JAMSHID VERMA on 01/03/17 1546 Methylprednisolone 4 Mg Tab.ds.pk, 4 MG PO UD, #1 Prescribed by: JAMSHID VERMA on 01/03/17 1546 Constitutional: see HPI, chills, fever EENTM: nose congestion, throat pain (FROM COUGHING) Respiratory: see HPI, cough, phlegm, short of breath Cardiovascular: see HPI, chest pain (FROM COUGHING) Genitourinary: no symptoms reported LMP: Nov 28, 2016 (NO CONTROL) Musculoskeletal: no symptoms reported Skin: no symptoms reported Psychiatric/Neurological: No Symptoms Reported Hematologic/Lymphatic: No Symptoms Reported Immunological/Allergic: no symptoms reported Past Kvzneiy-Evwkjo-Ndiqbu Hx Patient Social History Alcohol Use: Past History (HISTORY OF ABUSE,NONE X 1 YEAR, PER PT ON 01/03/17) Recreational 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, AND THC--DENIES USE FOR OVER A YEAR, PER PT ON 01/03/17) Smoking Status: Current Everyday Smoker (1/2 PPD) Type Used: Cigarettes 2nd Hand Smoke Exposure: Yes Recent Foreign Travel: No Contact w/Someone Who Travel: No Recent Infectious Disease Expo: No Recent Hopitalizations: No Physical Abuse: No Sexual Abuse: No Mistreated: No Fear: No Immunizations Up To Date Tetanus Booster (TDap): Unknown PED Vaccines UTD: No Seasonal Allergies Seasonal Allergies: Yes Surgeries History of Surgeries: Yes (TUBES IN EARS, CERVICAL, C SECTION TIMES X 5) Surgeries: Section, Ear Surgery Respiratory History of Respiratory Disorde: Yes (ASTHMA CHILD) Respiratory Disorders: Asthma Cardiovascular History of Cardiac Disorders: No Neurological History of Neurological Disord: Yes (MINI SEIZURES) Reproductive System : No Last Menstrual Period: Nov 28, 2016 Hx Reproductive Disorders: Yes (CERVICAL SURG) 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 Reproductive Disorders: Denies Genitourinary History of Genitourinary Disor: Yes Genitourinary Disorders: UTI-Chronic Gastrointestinal History of Gastrointestinal Di: Yes Gastrointestinal Disorders: Gastroesophageal Reflux, Ulcer Musculoskeletal History of Musculoskeletal Dis: No Endocrine History of Endocrine Disorders: Yes ("HYPOGLYCEMIC" ; DM with ) Endocrine Disorders: Diabetes, Non-Insulin dep HEENT Loss of Vision: Denies Hearing Impairment: Denies Cancer History of Cancer: Yes Cancer: Cervical Psychosocial History of Psychiatric Problem: Yes Behavioral Health Disorders: Anxiety, PTSD, Personality Disorder, Depression Suicide Risk Score: 0 Integumentary History of Skin or Integumenta: Yes (SHINGLES) Skin/Integumentary Disorders: Recent Skin Changes Blood Transfusions History of Blood Disorders: Yes (ANEMIA) Adverse Reaction to a Blood Tr: No Family Medical History Significant Family History: No Pertinent Family Hx Family Medial History: Alcoholism 19 MOTHER Cardiovascular disease 19 MOTHER Colon cancer Completed stroke 19 FATHER Drug abuse 19 MOTHER Myocardial infarction 19 FATHER (FATHER, [place] ) OVERDOSE MOM No Family History of: AIDS Abdominal aortic aneurysm [place]'s disease Alzheimer's disease Aphasia Arthritis Asthma Cancer of mouth Cataracts Congenital disease Congenital heart disease Coronary thrombosis Cystic fibrosis Deafness or hearing loss Dementia Diabetes mellitus Dysphasia Fibrocystic disease of breast Gastroenteritis Glaucoma Headache disorder Hypercholesterolemia Hypertension Kidney disease Neoplasm Not obtainable due to adoption Osteoporosis Parkinson's disease Prostate cancer Psychosocial problem Respiratory disorder Seizure disorder Severe allergy Thyroid disease Tuberculosis Visual disorder Physical Exam Vital Signs Vital Sign - Last 12Hours 01/03/17 14:09 Temp 99.0 Pulse 102 Resp 22 B/P (MAP) 109/84 Pulse Ox 97 Capillary Refill : Less Than 3 Seconds General Appearance: no apparent distress, other (ANXIOUS, SOMEWHAT DRAMATIC, CONSTANT MOVEMENTS) HEENT: PERRL/EOMI, other (NASAL MUCOSAL EDEMA. NO SINUS TENDERNESS) Neck: normal inspection Respiratory: normal breath sounds, no respiratory distress, no accessory muscle use Cardiovascular: normal peripheral pulses, regular rate, rhythm, no edema, no JVD, no murmur Gastrointestinal: normal bowel sounds, non tender, soft Extremities: normal inspection, no pedal edema, no calf tenderness, normal capillary refill Neurologic/Psychiatric: institutional cook II-XII nml as tested, no motor/sensory deficits, alert, normal mood/affect, oriented x 3 Skin: normal color, warm/dry, other (MULTIPLE SORES/SCABS/ SCARS TO FACE, ARMS , CHEST) Focused Exam Evaluation Lactate Level Laboratory Tests 01/03/17 15:22: Lactic Acid Level 1.49 Lactic Acid Level Laboratory Tests Test 01/03/17 15:22 Lactic Acid Level 1.49 MMOL/L (0.50-2.00) Laceration Repair : Suture Size: 5-0 Progress/Results/Core Measures Results/Orders Lab Results Laboratory Tests Test 01/03/17 14:10 01/03/17 14:30 01/03/17 15:22 Range/Units Urine Test NEGATIVE NEGATIVE Urine Opiates Screen NEGATIVE NEGATIVE Urine Oxycodone Screen NEGATIVE NEGATIVE Urine Methadone Screen NEGATIVE NEGATIVE Urine Propoxyphene Screen NEGATIVE NEGATIVE Urine Barbiturates Screen NEGATIVE NEGATIVE Ur Tricyclic Antidepressants Screen NEGATIVE NEGATIVE Urine Phencyclidine Screen NEGATIVE NEGATIVE Urine Amphetamines Screen POSITIVE H NEGATIVE Urine Methamphetamines Screen POSITIVE H NEGATIVE Urine Benzodiazepines Screen NEGATIVE NEGATIVE Urine Cocaine Screen NEGATIVE NEGATIVE Urine Cannabinoids Screen NEGATIVE NEGATIVE White Blood Count 9.4 4.3-11.0 10^3/uL Red Blood Count 4.64 4.35-5.85 10^6/uL Hemoglobin 13.7 11.5-16.0 G/DL Hematocrit 41 35-52 % Mean Corpuscular Volume 88 80-99 FL Mean Corpuscular Hemoglobin 30 25-34 PG Mean Corpuscular Hemoglobin Concent 33 32-36 G/DL Red Cell Distribution Width 14.6 H 10.0-14.5 % Platelet Count 266 130-400 10^3/uL Mean Platelet Volume 10.5 H 7.4-10.4 FL Neutrophils (%) (Auto) 73 42-75 % Lymphocytes (%) (Auto) 18 12-44 % Monocytes (%) (Auto) 5 0-12 % Eosinophils (%) (Auto) 3 0-10 % Basophils (%) (Auto) 0 0-10 % Neutrophils # (Auto) 6.9 1.8-7.8 X 10^3 Lymphocytes # (Auto) 1.7 1.0-4.0 X 10^3 Monocytes # (Auto) 0.5 0.0-1.0 X 10^3 Eosinophils # (Auto) 0.3 0.0-0.3 10^3/uL Basophils # (Auto) 0.0 0.0-0.1 10^3/uL Sodium Level 139 135-145 MMOL/L Potassium Level 3.9 3.6-5.0 MMOL/L Chloride Level 106 98-107 MMOL/L Carbon Dioxide Level 22 21-32 MMOL/L Anion Gap 11 5-14 MMOL/L Blood Urea Nitrogen 8 7-18 MG/DL Creatinine 0.71 0.60-1.30 MG/DL Estimat Glomerular Filtration Rate > 60 BUN/Creatinine Ratio 11 Glucose Level 88 70-105 MG/DL Calcium Level 9.6 8.5-10.1 MG/DL Total Bilirubin 0.5 0.1-1.0 MG/DL Aspartate Amino Transf (AST/SGOT) 11 5-34 U/L Alanine Aminotransferase (ALT/SGPT) 21 0-55 U/L Alkaline Phosphatase 59 40-136 U/L Total Protein 7.3 6.4-8.2 GM/DL Albumin 4.4 3.2-4.5 GM/DL Lactic Acid Level 1.49 0.50-2.00 MMOL/L My Orders Orders - JAMSHID VERMA DO Saline Lock/Iv-Start (01/03/17 14:09) Monitor-Rhythm Ecg Trace Only (01/03/17 14:09) Cbc With Automated Diff (01/03/17 14:09) Comprehensive Metabolic Panel (01/03/17 14:09) Lactic Acid Analyzer (01/03/17 14:09) Blood Culture (01/03/17 14:09) Influenza A And B Antigens (01/03/17 14:09) Chest Pa/Lat (2 View) (01/03/17 14:09) Drug Screen Stat (Urine) (01/03/17 14:26) Hcg,Qualitative Urine (01/03/17 14:26) Vital Signs/I&O Vital Sign - Last 12Hours 01/03/17 01/03/17 01/03/17 14:09 15:00 16:05 Temp 99.0 99.2 99.2 Pulse 102 98 102 Resp 22 18 18 B/P (MAP) 109/84 110/71 Pulse Ox 97 99 99 Blood Pressure Mean: 92 Progress Note : Progress Note UNEVENTFUL ER STAY Diagnostic Imaging Comments CXR--MINIMAL ATELECTASIS IN BASE, OTHERWISE NO ACUTE PROCESS, PER RADIOLOGIST REPORT Reviewed: Reviewed by Me Departure Impression Impression: Primary Impression: Bronchitis Additional Impression: Illicit drug use Disposition: 01 HOME, SELF-CARE Condition: Stable Departure-Patient Inst. [facility] Primary Care Physician Patient Instructions: Acute Bronchitis, Adult (DC) Add. Discharge Instructions: LOTS OF CLEAR LIQUIDS TYLENOL 1 GRAM / MOTRIN 800 MG 4 TIMES A DAY FOR PAIN OR FEVER FOLLOW UP WITH [facility] IN 3-4 DAYS IF NO BETTER All discharge instructions reviewed with patient and/or family. Voiced understanding. Scripts Benzonatate (Tessalon Perle) 100 Mg Capsule 1-2 TAB PO TID for Cough, #30 CAP Prov: JAMSHID VERMA DO 01/03/17 Guaifenesin/Dextromethorphan (Mucinex Dm ER 1,200-60 mg Tab) 1 Each Tbmp.12hr 1 EACH PO BID for 10 Days, #20 EA Prov: NAGA VERMAA K DO 01/03/17 Methylprednisolone (Medrol) 4 Mg Tab.ds.pk 4 MG PO UD, #1 PKG Prov: LUCINAGAA K DO 01/03/17 Albuterol Sulfate (PROAIR HFA) 1 Puff Puff 2 PUFF IH Q4H for BREATHING, #1 GM Prov: JAMSHID VERMA K DO 01/03/17 Doxycycline Monohydrate (Doxycycline Monohydrate) 100 Mg Capsule 100 MG PO BID, #20 CAP Prov: JAMSHID VERMA DO 01/03/17 JAMSHID VERMA DO Jan 03, 2017 14:31
[2017-01-03 14:40] LABS: BASOPHILS % (AUTO) 0 % (0-10); EOSINOPHILS # (AUTO) 0.3 10^3/uL (0.0-0.3); EOSINOPHILS % (AUTO) 3 % (0-10); LYMPHOCYTES # (AUTO) 1.7 X 10^3 (1.0-4.0); LYMPHOCYTES % (AUTO) 18 % (12-44); MEAN CORPUSCULAR HEMOGLOBIN 30 PG (25-34); MEAN CORPUSCULAR HGB CONC 33 G/DL (32-36); MEAN CORPUSCULAR VOLUME 88 FL (80-99); MEAN PLATELET VOLUME 10.5 FL (7.4-10.4); MONOCYTES # (AUTO) 0.5 X 10^3 (0.0-1.0); MONOCYTES % (AUTO) 5 % (0-12); NEUTROPHILS # (AUTO) 6.9 X 10^3 (1.8-7.8); NEUTROPHILS % (AUTO) 73 % (42-75); PLATELET COUNT 266 10^3/uL (130-400); RED BLOOD COUNT 4.64 10^6/uL (4.35-5.85); RED CELL DISTRIBUTION WIDTH 14.6 % (10.0-14.5); WHITE BLOOD COUNT 9.4 10^3/uL (4.3-11.0)
[2017-01-03 15:01] LABS: ALANINE AMINOTRANSFERASE 21 U/L (0-55); ALBUMIN 4.4 GM/DL (3.2-4.5); ANION GAP 11 MMOL/L (5-14); ASPARTATE AMINO TRANSFERASE 11 U/L (5-34); BILIRUBIN,TOTAL 0.5 MG/DL (0.1-1.0); BLOOD UREA NITROGEN 8 MG/DL (7-18); BUN/CREATININE RATIO 11; CALCIUM 9.6 MG/DL (8.5-10.1); CARBON DIOXIDE 22 MMOL/L (21-32); CHLORIDE 106 MMOL/L (98-107); CREATININE SERUM 0.71 MG/DL (0.60-1.30); GFR ESTIMATED > 60; GLUCOSE 88 MG/DL (70-105); POTASSIUM 3.9 MMOL/L (3.6-5.0); SODIUM 139 MMOL/L (135-145); TOTAL PROTEIN 7.3 GM/DL (6.4-8.2)
[2017-01-03] MEDS ORDERED: BENZ-13 PO (15:46)
[2017-01-03] MEDS ORDERED: GUAI1TBM19 PO (15:46)
[2017-01-03] MEDS ORDERED: METH4TAB PO (15:46)
[2017-01-03] MEDS ORDERED: RT-ALBUINH IH (15:46)
[2017-01-03] MEDS ORDERED: DOXY100C42 PO (15:46)
--- NOTE | 2017-01-03 15:47 | Diagnostic Imaging Report ---
PA and lateral views of the chest Indication: Cough and fever Findings: There is minimal lateral right basilar atelectasis, otherwise the lungs are clear. The heart size is normal. There is no effusion or pneumothorax The mediastinum and ally appear unremarkable. Impression: Minimal right basilar atelectasis. Dictated by: Dictated on workstation # [id number]
[2017-01-03 16:05] VITALS: BP 102/63
== END 2017-01-03 16:04 | disposition home or self-care (01) ==
LOC: EDUNIT# 14:02 → ER 14:04
DX: J40 Bronchitis, not specified as acute or chronic (principal); F19.90 Other psychoactive substance use, unspecified, uncomplicated; F43.10 Post-traumatic stress disorder, unspecified; F41.9 Anxiety disorder, unspecified; F32.9 Major depressive disorder, single episode, unspecified; F60.9 Personality disorder, unspecified; K21.9 Gastro-esophageal reflux disease without esophagitis; J45.909 Unspecified asthma, uncomplicated; F17.210 Nicotine dependence, cigarettes, uncomplicated; Z85.41 Personal history of malignant neoplasm of cervix uteri; Z87.11 Personal history of peptic ulcer disease
CPT/HCPCS: 36415; 71020; 80053; 80306; 83605; 84703; 85025; 87040; 87804; 93041

== ENCOUNTER 2020-01-18 14:36 | Emergency (ER) | payer MEDICAID, OTHER ==
[~2020-01-18] VITALS: Ht 157 cm; Wt 88.4 kg
[~2020-01-18 14:36] MED LIST changes: +BENZ100C18 PO; +DOXY100C42 PO; +GUAI1TBM19 PO; +METH4TAB PO; +RT-ALBUINH IH
[2020-01-18] MEDS ORDERED: RX-ALBUTEROL INHALER (VENTOLIN HFA) 18 GM IH STA (15:24)
--- NOTE | 2020-01-18 15:24 | ED Cough/URI ---
General Chief Complaint: Cough/Cold/Flu Symptoms Stated Complaint: COUGH;SOA;DIZZINESS Nursing Triage Note: PT PRESENTS TO ED WITH COMPLAINTS OF COUGH/ CONGESTION/ EARACHE/ SINUS PRESSURE/ AND MALAISE X 4 DAYS. PT REPORTS NO KNOWN COVID EXPOSURE. Sepsis Screen: Possible Sepsis Risk Source: patient Exam Limitations: no limitations History of Present Illness Date Seen by Provider: Jan 18, 2020 Time Seen by Provider: 15:02 Initial Comments Patient presents ER by private conveyance with chief complaint of last several days shortness of air dry cough chills but no fever. No known sick contacts. Nausea vomiting runny nose and green phlegm from the nose. She says she has a history of asthma and she was a kid but does not routinely use breathing treatments. She did try and use her inhaler but was out. Allergies and Home Medications Allergies Coded Allergies: Shellfish (Unverified Allergy, Unknown, 01/03/17) dihydroxyacetone (Verified Allergy, Unknown, 09/30/13) Uncoded Allergies: BEES (Allergy, Unknown, 09/30/13) SEAFOOD (Allergy, Unknown, 09/30/13) Home Medications Albuterol Sulfate 1 Puff Puff, 2 PUFF IH Q4H Prescribed by: JAMSHID VERMA on 01/03/17 154 Benzonatate 100 Mg Capsule, 1-2 TAB PO TID Prescribed by: JAMSHID VERMA on 01/03/17 154 Benzonatate 100 Mg Capsule, 100 MG PO Q6H PRN for WHEEZING Prescribed by: MARILEE SEALS on 01/18/20 1620 Doxycycline Monohydrate 100 Mg Capsule, 100 MG PO BID Prescribed by: JAMSHID VERMA on 01/03/17 154 Guaifenesin/Dextromethorphan 1 Each Tbmp.12hr, 1 EACH PO BID Prescribed by: JAMSHID VERMA on 01/03/17 154 Methylprednisolone 4 Mg Tab.ds.pk, 4 MG PO UD Prescribed by: JAMSHID VERMA on 01/03/17 154 Ondansetron 4 Mg Tab.rapdis, 4 MG PO Q6H PRN for NAUSEA/VOMITING Prescribed by: MARILEE SEALS on 01/18/20 1620 Patient Home Medication List Home Medication List Reviewed: Yes Review of Systems Review of Systems Constitutional: No chills, No fever; malaise EENTM: No hearing loss Respiratory: cough; No phlegm; short of breath Cardiovascular: No chest pain, No edema Gastrointestinal: No abdominal pain, No constipation; diarrhea, nausea, vomiting Genitourinary: No discharge, No dysuria Musculoskeletal: No back pain, No joint pain All Other Systems Reviewed Negative Unless Noted: Yes Past Zbnriuc-Iotzla-Yfrfmr Hx Patient Social History Alcohol Use: Occasionally Uses Recreational 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) Smoking Status: Current Everyday Smoker Type Used: Cigarettes 2nd Hand Smoke Exposure: Yes Recent Foreign Travel: No Contact w/Someone Who Travel: No Recent Infectious Disease Expo: No Recent Hopitalizations: No Physical Abuse: No Sexual Abuse: No Mistreated: No Fear: No Immunizations Up To Date Tetanus Booster (TDap): Unknown PED Vaccines UTD: No Seasonal Allergies Seasonal Allergies: Yes Past Medical History Surgeries: Yes (TUBES IN EARS, CERVICAL ablation , C SECTION TIMES X 5) Section, Ear Surgery, Gallbladder Respiratory: Yes (ASTHMA CHILD) Asthma Cardiac: No Neurological: Yes (MINI SEIZURES) Last Menstrual Period: Jan 11, 2020 Reproductive Disorders: Yes (CERVICAL SURG) Female Reproductive Disorders: Denies Sexually Transmitted Disease: Yes (HPV) Genitourinary: Yes UTI-Chronic Gastrointestinal: Yes Gastroesophageal Reflux, Ulcer Musculoskeletal: Yes Degenerate Disk Disease Endocrine: Yes ("HYPOGLYCEMIC" ; DM with ) Diabetes, Non-Insulin dep Loss of Vision: Denies Hearing Impairment: Denies Cancer: Yes Cervical Psychosocial: Yes Anxiety, PTSD, Personality Disorder, Depression Integumentary: Yes (SHINGLES) Recent Skin Changes Blood Disorders: Yes (ANEMIA) Adverse Reaction/Blood Tranf: No Family Medical History Alcoholism 19 MOTHER Cardiovascular disease 19 MOTHER Colon cancer Completed stroke 19 FATHER Drug abuse 19 MOTHER Myocardial infarction 19 FATHER (FATHER, [place] ) OVERDOSE MOM No Family History of: AIDS Abdominal aortic aneurysm [place]'s disease Alzheimer's disease Aphasia Arthritis Asthma Cancer of mouth Cataracts Congenital disease Congenital heart disease Coronary thrombosis Cystic fibrosis Deafness or hearing loss Dementia Diabetes mellitus Dysphasia Fibrocystic disease of breast Gastroenteritis Glaucoma Headache disorder Hypercholesterolemia Hypertension Kidney disease Neoplasm Not obtainable due to adoption Osteoporosis Parkinson's disease Prostate cancer Psychosocial problem Respiratory disorder Seizure disorder Severe allergy Thyroid disease Tuberculosis Visual disorder No Pertinent Family Hx Physical Exam Vital Signs - First Documented 01/18/20 14:53 Temp 36.0 Pulse 92 Resp 26 B/P (MAP) 110/70 (83) Pulse Ox 97 O2 Delivery Room Air Capillary Refill : Less Than 3 Seconds Height: 5'2.00" Weight: 195lbs. 0.0oz. 88.002117vz; 35.00 BMI Method:Stated General Appearance: WD/WN, no apparent distress Eyes: Bilateral Eye Normal Inspection, Bilateral Eye PERRL, Bilateral Eye EOMI HEENT: PERRL/EOMI, pharynx normal Neck: full range of motion, normal inspection Respiratory: lungs clear, normal breath sounds, no respiratory distress, no accessory muscle use Cardiovascular: normal peripheral pulses, regular rate, rhythm Extremities: non-tender, normal inspection, no pedal edema, normal capillary refill Neurologic/Psychiatric: alert, oriented x 3 Skin: normal color, warm/dry Procedures/Interventions Suture Size: 5-0 Progress/Results/Core Measures Suspected Sepsis Recent Fever Within 48 Hours: No Infection Criteria Present: Suspected New Infection New/Unexplained Altered Menta: No Sepsis Screen: Possible Sepsis Risk SIRS Temperature: Pulse: 92 Respiratory Rate: 26 Blood Pressure 110 /70 Mean: 83 Results/Orders Lab Results Laboratory Tests Test 01/18/20 14:59 Range/Units Micro Results Microbiology 01/18/20 Influenza Types A,B Antigen (COOKIE) - Final, Complete My Orders Orders - MARILEE SEALS Coronavirus Sars-Cov-2 So 2018 (01/18/20 15:15) Influenza A And B Antigens (01/18/20 15:15) Rx-Albuterol Inhaler (Rx-Ventolin Hfa) (01/18/20 15:24) Vital Signs/I&O 01/18/20 01/18/20 01/18/20 14:53 14:53 16:30 Temp 36.0 36.0 Pulse 92 90 Resp 26 26 B/P (MAP) 110/70 (83) 112/74 (83) Pulse Ox 97 98 O2 Delivery Room Air Room Air Capillary Refill : Less Than 3 Seconds Blood Pressure Mean: 83 Progress Note : Time: 16:15 Progress Note Normal vital signs with good oxygen sats 99-100% on room air nonlabored breathing. We have flu swab is negative we'll let her go home with a send out COVID 19 swab. gave her a albuterol inhaler to use. Departure Impression Primary Impression: Bronchitis Additional Impression: Person under investigation for COVID-19 Disposition: 01 HOME, SELF-CARE Condition: Stable Departure-Patient Inst. Decision time for Depature: 16:16 Referrals: [facility] (PCP/Family) Primary Care Physician Patient Instructions: Acute Bronchitis, Adult (DC), Coronavirus Disease 2019 (COVID-19) Overview Add. Discharge Instructions: If you're having coughing wheezing or shortness of air you may use 2 puffs of albuterol every 4 hours as necessary. You may also use Tessalon Perles 1 capsule every 6 hours as necessary for coughing fits. Drink plenty of fluids. Tylenol 1000 mg every 8 hours as necessary for fatigue, body aches or fever. Ibuprofen 800 mg every 8 hours as necessary for fatigue, body aches or fever. Ondansetron one tablet under the tongue every 6 hours as needed for nausea or vomiting. Return to the nearest ER should your symptoms worsen and you're unable to catch your breath. All discharge instructions reviewed with patient and/or family. Voiced understanding. Scripts Ondansetron (Ondansetron Odt) 4 Mg Tab.rapdis 4 MG PO Q6H PRN for NAUSEA/VOMITING, #8 TAB 0 Refills Prov: MARILEE SEALS 01/18/20 Benzonatate (Tessalon Perle) 100 Mg Capsule 100 MG PO Q6H PRN for WHEEZING, #30 CAP 0 Refills Prov: MARILEE SEALS 01/18/20 MARILEE SEALS Jan 18, 2020 15:24
[2020-01-18] MEDS ORDERED: BENZ-13 PO (16:20)
[2020-01-18] MEDS ORDERED: ONDA4TAB11 PO (16:20)
[2020-01-18 16:30] VITALS: BP 112/74
== END 2020-01-18 16:30 | disposition home or self-care (01) ==
LOC: EDUNIT# 14:36 → ER 14:37
DX: J40 Bronchitis, not specified as acute or chronic (principal); N39.0 Urinary tract infection, site not specified; F17.210 Nicotine dependence, cigarettes, uncomplicated; Z82.49 Family history of ischemic heart disease and other diseases of the circulatory system; Z80.0 Family history of malignant neoplasm of digestive organs; Z85.41 Personal history of malignant neoplasm of cervix uteri; Z91.030 Bee allergy status; Z88.8 Allergy status to other drugs, medicaments and biological substances; Z20.828 Contact with and (suspected) exposure to other viral communicable diseases; Z79.52 Long term (current) use of systemic steroids
CPT/HCPCS: 87804; 99282; U0002; 87635

== ENCOUNTER 2022-02-05 13:20 | Emergency (ER) | payer SELFPAY ==
[~2022-02-05 13:20] MED LIST changes: +ALBU8.5H6 IH; +BENZ-13 PO; +CYCL10TA25 PO; -CYCL10TA9 PO; +DOXY-311 PO; -DOXY100C42 PO; +ONDA4TAB11 PO; -RT-ALBUINH IH
[2022-02-05 13:33] VITALS: BP 122/69
--- NOTE | 2022-02-05 13:36 | ED Respiratory ---
General Chief Complaint: COVID19 Suspect/Confirmed Stated Complaint: COVID POSITIVE/SOA Source: patient Exam Limitations: no limitations (MURIEL ANDRADE APRN) History of Present Illness Date Seen by Provider: Feb 05, 2022 Time Seen by Provider: 13:30 Initial Comments Patient is a 41-year-old female who presents to the emergency department with increased shortness of breath in the context of being COVID-positive. Patient tested positive on Saturday. She stated her symptoms may began 2 to 3 days earlier but she had a negative test at that time. She states the shortness of breath really worsened over the last 24 to 48 hours. She states she has had a nonproductive cough. She has generally felt weak. She states that shortness of breath is worse with exertion. She denies any chest pain. She was placed on prednisone and albuterol at the clinic where she tested positive on Saturday. She states she has been taking these as prescribed with minimal improvement in symptoms. She has not had a fever in the last few days. She is a current smoker. (MURIEL ANDRADE APRN) Allergies and Home Medications Allergies Coded Allergies: Shellfish (Unverified Allergy, Unknown, 01/03/17) dihydroxyacetone (Verified Allergy, Unknown, 09/30/13) Uncoded Allergies: BEES (Allergy, Unknown, 09/30/13) SEAFOOD (Allergy, Unknown, 09/30/13) Patient Home Medication List Home Medication List Reviewed: Yes (MURIEL ANDRADE APRN) Albuterol Sulfate (Proair Hfa) 1 Puff Puff, 2 PUFF IH Q4H Prescribed by: JAMSHID VERMA on 01/03/17 1546 Benzonatate (Tessalon Perles) 100 Mg Capsule, 1-2 TAB PO TID Prescribed by: JAMSHID VERMA on 01/03/17 1546 Benzonatate (Tessalon Perle) 100 Mg Capsule, 100 MG PO Q6H PRN for WHEEZING Prescribed by: MARILEE SEALS on 01/18/20 1620 Doxycycline Monohydrate (Doxycycline Monohydrate) 100 Mg Capsule, 100 MG PO BID Prescribed by: JAMSHID VERMA on 01/03/17 1546 Guaifenesin/Dextromethorphan (Mucinex Dm ER 1,200-60 mg Tab) 1 Each Tbmp.12hr, 1 EACH PO BID Prescribed by: JAMSHID VERMA on 01/03/17 1546 Methylprednisolone (Medrol) 4 Mg Tab.ds.pk, 4 MG PO UD Prescribed by: JAMSHID VERMA on 01/03/17 1546 Ondansetron (Ondansetron Odt) 4 Mg Tab.rapdis, 4 MG PO Q6H PRN for NAUSEA/VOMITING Prescribed by: MARILEE SEALS on 01/18/20 1620 Review of Systems Review of Systems Constitutional: see HPI EENTM: see HPI Respiratory: see HPI Cardiovascular: no symptoms reported Gastrointestinal: no symptoms reported Skin: no symptoms reported Psychiatric/Neurological: No Symptoms Reported (MURIEL ANDRADE APRN) Past Ejnjgbp-Wkbein-Zbnrqp Hx Immunizations Up To Date Tetanus Booster (TDap): Unknown PED Vaccines UTD: No (MURIEL ANDRADE APRN) Seasonal Allergies Seasonal Allergies: Yes (MURIEL ANDRADE APRN) Past Medical History Surgeries: Yes (TUBES IN EARS, CERVICAL ablation , C SECTION TIMES X 5) Section, Ear Surgery, Gallbladder Respiratory: Yes (ASTHMA CHILD) Asthma Cardiac: No Neurological: Yes (MINI SEIZURES) Reproductive Disorders: Yes (CERVICAL SURG) Female Reproductive Disorders: Denies Sexually Transmitted Disease: Yes (HPV) Genitourinary: Yes UTI-Chronic Gastrointestinal: Yes Gastroesophageal Reflux, Ulcer Musculoskeletal: Yes Degenerate Disk Disease Endocrine: Yes ("HYPOGLYCEMIC" ; DM with ) Diabetes, Non-Insulin dep Loss of Vision: Denies Hearing Impairment: Denies Cancer: Yes Cervical Psychosocial: Yes Anxiety, PTSD, Personality Disorder, Depression Integumentary: Yes (SHINGLES) Recent Skin Changes Blood Disorders: Yes (ANEMIA) Adverse Reaction/Blood Tranf: No (MURIEL ANDRADE APRN) Family Medical History Alcoholism 19 MOTHER Cardiovascular disease 19 MOTHER Colon cancer Completed stroke 19 FATHER Drug abuse 19 MOTHER Myocardial infarction 19 FATHER (FATHER, [place] ) OVERDOSE MOM No Family History of: AIDS Abdominal aortic aneurysm Saurav's disease Alzheimer's disease Aphasia Arthritis Asthma Cancer of mouth Cataracts Congenital disease Congenital heart disease Coronary thrombosis Cystic fibrosis Deafness or hearing loss Dementia Diabetes mellitus Dysphasia Fibrocystic disease of breast Gastroenteritis Glaucoma Headache disorder Hypercholesterolemia Hypertension Kidney disease Neoplasm Not obtainable due to adoption Osteoporosis Parkinson's disease Prostate cancer Psychosocial problem Respiratory disorder Seizure disorder Severe allergy Thyroid disease Tuberculosis Visual disorder No Pertinent Family Hx (MURIEL ANDRADE APRN) Physical Exam Vital Signs - First Documented 02/05/22 13:33 Temp 37.3 Pulse 87 Resp 20 B/P (MAP) 122/69 (86) (CARMEN FELIX MD) Capillary Refill : (MURIEL ANDRADE APRN) Height: 5'2.00" Weight: 195lbs. 0.0oz. 88.523304co; 35.00 BMI Method:Stated General Appearance: WD/WN, no apparent distress HEENT: PERRL/EOMI, normal ENT inspection, TMs normal, pharynx normal Neck: non-tender, full range of motion, supple, normal inspection Respiratory: chest non-tender, lungs clear, normal breath sounds, no respiratory distress Cardiovascular: regular rate, rhythm Gastrointestinal: normal bowel sounds, non tender, soft, no organomegaly, no pulsatile mass Extremities: normal range of motion, non-tender, normal inspection, no pedal edema, no calf tenderness Neurologic/Psychiatric: no motor/sensory deficits, alert, normal mood/affect, oriented x 3 Skin: normal color, warm/dry (MURIEL ANDRADE APRN) Procedures/Interventions Suture Size: 5-0 (MURIEL ANDRADE APRN) Progress/Results/Core Measures Suspected Sepsis SIRS Temperature: Pulse: Respiratory Rate: Blood Pressure / Mean: (MURIEL ANDRADE APRN) Results/Orders Vital Signs/I&O 02/05/22 13:33 Temp 37.3 Pulse 87 Resp 20 B/P (MAP) 122/69 (86) (CARMEN FELIX MD) Vital Signs/I&O Capillary Refill : (MURIEL ANDRADE APRN) Progress Note : Progress Note Patient is nontoxic and well-hydrated on exam. No adventitious lung sounds or creased work of breathing noted. Vital signs are reassuring with no hypoxia or marked tachypnea/tachycardia. No lower extremity swelling/redness/pain. Pretest probability for PE is very low with a Wells criteria score of 0. Patient's oxygen saturations on room air after walking from the waiting room to the room are 99%. Patient is somewhat anxious and does appear to be slightly hyperventilating. After she was able to sit in the bed a moment this respiration rate returned to normal and her oxygen saturations remained in the upper 90s. Patient was never noted to be tachycardic over 100 while I was in the room or watching the monitor outside the room. She is a smoker but she denies any exogenous hormone usage at this time. No indication for further work-up for PE indicated. Chest x-ray was obtained which is acutely negative. Patient will be discharged home with recommendations for supportive care and close follow-up with PCP. Anticipatory guidance and supportive care discussed. Return precautions for symptomology discussed. Patient verbalized und erstanding. (MURIEL ANDRADE APRN) Departure Impression Primary Impression: COVID-19 Disposition: 01 HOME, SELF-CARE Condition: Stable Departure-Patient Inst. Decision time for Depature: 14:00 (MURIEL ANDRADE APRN) Referrals: [facility] [place] (PCP/Family) Primary Care Physician Patient Instructions: COVID-19 Home Care/Discharge ATTENDING PHYSICIAN NOTE: I was physically present as attending physician in the emergency department during the care of this patient, but I was not directly involved in the decision making or delivery of care for this patient. (CARMEN FELIX MD) MURIEL ANDRADE APRN Feb 05, 2022 13:36 CARMEN FELIX MD Feb 05, 2022 19:26
--- NOTE | 2022-02-05 13:54 | Diagnostic Imaging Report ---
Indication: Dyspnea Single AP view of chest is obtained. FINDINGS: Heart size and pulmonary vascularity are within normal limits, and the lungs are clear, bilaterally. IMPRESSION: Unremarkable chest. Dictated by: Dictated on workstation # [id number]
== END 2022-02-05 14:09 | disposition home or self-care (01) ==
LOC: EDUNIT# 13:20 → ER 13:22
DX: U07.1 COVID-19 (principal); F41.9 Anxiety disorder, unspecified; F17.200 Nicotine dependence, unspecified, uncomplicated; Z28.310 Unvaccinated for COVID-19
CPT/HCPCS: 71045